=== PATIENT | male | born 1940 | race Caucasian/White ===

== ENCOUNTER 2019-04-24 10:19 | Outpatient (CLI) | payer MEDICARE, SELFPAY ==
--- NOTE | ~2019-04-24 | XR_ITS ---
EXAMINATION: XR knee LT 3V DATE: 04/24/2019 10:48 INDICATION: Primary osteoarthritis of left knee. TECHNIQUE: 3 views of left knee were obtained. COMPARISON: Left knee radiographs 07/04/2017 FINDINGS: There is varus angulation at the knee. No fracture. There is severe osteoarthritis of media l compartment and mild osteoarthritis of lateral and patellofemoral compartments. There is a small kn ee joint effusion. IMPRESSION: 1. Severe left knee osteoarthritis. 2. Small left knee joint effusion. Reviewed, dictated and finalized at location A. GE CLUB MANAGER
--- NOTE | ~2019-04-24 | XR_ITS ---
EXAMINATION: XR knee RT 3V DATE: 04/24/2019 10:48 INDICATION: Right knee primary osteoarthritis. TECHNIQUE: 3 views of right knee were obtained. COMPARISON: Right knee radiographs 07/04/2017 FINDINGS: There is varus angulation at the knee. No fracture. There is severe osteoarthritis of media l compartment and mild osteoarthritis of lateral and patellofemoral compartments. No knee joint effus ion. IMPRESSION: 1. Severe right knee osteoarthritis. Reviewed, dictated and finalized at location A. NG RUNNING MACHINE TENDER
--- NOTE | ~2019-04-24 | XR_ITS ---
EXAMINATION: XR shoulder RT min 2V DATE: 04/24/2019 10:47 INDICATION: Right shoulder primary osteoarthritis. TECHNIQUE: 4 views of right shoulder were obtained. COMPARISON: Right shoulder radiographs 07/04/2017 FINDINGS: Bone alignment is normal. No fracture. There is advanced osteoarthritis of glenohumeral rody nt and mild osteoarthritis of acromioclavicular joint. IMPRESSION: 1. Advanced osteoarthritis of glenohumeral joint. Reviewed, dictated and finalized at location A. T ENGINEER
[2019-04-24 12:07] LABS: Basophils Percent Auto 0.6 % (0.2-1.2); Eosinophils Absolute Auto 0.3 K/mm3 (0-0.3); Eosinophils Percent Auto 3.9 % (0-4.4); Hematocrit 46.6 % (42.0-52.0); Immature Granulocyte Absolute 0.02 K/mm3 (0.00-0.031); Immature Granulocyte Percent A 0.3 % (0-0.5); Lymphocytes Absolute Auto 1.33 K/mm3 (0.9-3.2); Lymphocytes Percent Auto 20.1 % (18.3-44.2); Mean Corpuscular HGB Conc 32.2 g/dl (32-36); Mean Corpuscular Hemoglobin 29.6 pg (26-34); Mean Corpuscular Volume 91.9 fl (80-100); Mean Platelet Volume 9.9 fl (7.4-10.4); Monocytes Absolute Auto 0.7 K/mm3 (0.1-0.6); Monocytes Percent Auto 10.1 % (2.6-8.5); Neutrophils Absolute Auto 4.3 K/mm3 (1.3-6.7); Platelet Count Result 214 k/mm3 (150-375); Red Blood Count 5.07 M/mm3 (4.6-6.20); Red Cell Distribution Width 13.8 % (11.5-14.5); White Blood Count 6.6 K/mm3 (4.5-10.0)
[2019-04-24 12:22] LABS: Blood Urea Nitrogen 21 mg/dL (9-20); Calcium 9.1 mg/dL (8.4-10.2); Carbon Dioxide 28 mmol/L (22-30); Chloride 101 mmol/L (98-107); Estimated Glomerular Filt Rate > 60; Glucose 104 mg/dL (75-110); Potassium 4.8 mmol/L (3.4-5.0); Sodium 138 mmol/L (137-145); Uric Acid 6.2 mg/dL (3.5-8.5)
== END 2019-04-24 10:20 | disposition home or self-care (01) ==
PROVIDERS: PCP Family Medicine; Visit Provider Family Medicine
DX: M19.011 Primary osteoarthritis, right shoulder (principal); M17.0 Bilateral primary osteoarthritis of knee; M25.462 Effusion, left knee; I10 Essential (primary) hypertension; M10.9 Gout, unspecified
CPT/HCPCS: 36415; 73030; 73562; 80048; 84550; 85025

== ENCOUNTER 2019-08-15 00:59 | Outpatient (CLI) | payer MEDICARE, SELFPAY ==
[2019-08-16 12:36] LABS: SARS-CoV-2 RNA PCR Negative
== END 2019-08-15 01:00 | disposition home or self-care (01) ==
LOC: ANHCOVIDDT 01:00
PROVIDERS: PCP Family Medicine; Visit Provider Internal Medicine Gastroenterology
DX: Z20.828 Contact with and (suspected) exposure to other viral communicable diseases (principal); Z01.812 Encounter for preprocedural laboratory examination
CPT/HCPCS: 87635; C9803; U0003

== ENCOUNTER 2019-08-17 00:24 | Day surgery (SDC) | payer MEDICARE, SELFPAY ==
[2019-08-09 15:13] VITALS: BMI 42.1
[2019-08-17 09:35] VITALS: BP 178/86; PULSE 68; RESP 22; TEMP 36.8; O2SAT 98
[2019-08-17] MEDS: LACTATED RINGERS 1,000 ML 150 ML IV CONT (09:45)
--- NOTE | 2019-08-17 09:56 | WPDANESEPPF ---
Anes - Initial Pre Proc Eval Procedure: Operation Date: 08/17/19 10:00 Proposed Procedures p Screening Colonoscopy - Corey Diego MD Date/Time: 08/17/19 09:56 Surgeon: Corey Diego MD Pre Op Diagnosis: hx colon polyps Patient Data Age: 79 Gender: M Height: 1.83 m Weight: 142.2 kg Last Vital Signs Temp 36.8 C 08/17/19 09:35 Pulse 68 08/17/19 09:35 Resp 22 H 08/17/19 09:35 BP 178/86 H 08/17/19 09:35 Pulse Ox 98 08/17/19 09:35 Allergies Allergy/AdvReac Type Severity Reaction Status Date / Time sulfanilamide Allergy Intermediate Rash Verified 08/17/19 09:34 Home Medications Medication Instructions Recorded Confirmed Type lisinopril 40 mg tablet 40 mg PO DAILY #90 tablet 02/13/19 08/09/19 Rx indomethacin 50 mg capsule 50 mg PO TID cap 03/11/19 08/09/19 History celecoxib 200 mg capsule 200 mg PO DAILY #90 cap 03/12/19 08/09/19 Rx aspirin 81 mg tablet,delayed 81 mg PO DAILY 04/24/19 08/09/19 History release metoprolol succinate 100 mg 100 mg PO BID #180 tablet 05/21/19 08/17/19 Rx tablet,extended release 24 hr allopurinol 100 mg tablet 100 mg PO DAILY #90 tablet 06/04/19 08/09/19 Rx vvfifrcl-rsa-MD-lycopen-lutein 1 tablet PO DAILY 08/09/19 08/09/19 History [Centrum Silver Men] Patient hx anesthesia problems: none Family hx anesthesia problems: none [facility] Past Medical History Medical History (Updated 08/16/19 @ 10:13 by Maurice Cha DO) Arthritis of right shoulder region Bilateral primary osteoarthritis of knee Colon polyp Essential (primary) hypertension Social History Social History Smoking status: Never smoker Second hand tobacco smoke exposure: No Alcohol intake: current Anes - Eval Final PreProcedure Day of Procedure 08/17/19 09:56 Patient weight: morbidly obese Heart: regular rate and rhythm Lungs: clear to auscultation and normal air movement Airway: Mallampati scale class II Neurological: alert and oriented Last oral intake: >/= 8 hours ASA classification: III Emergent: no Anesthetic plan: proceed Anesthesia type and monitoring: general GIVS and standard monitoring Informed Consent: The patient's anesthetic plan and its attendant risks and benefits were discussed with the patient/family/POA. Questions were solicited and answers provided to the satisfaction of the patient/family/POA.
--- NOTE | 2019-08-17 10:06 | WPDGICN ---
Assessment and Plan Assessment and plan (1) History of colon polyps: Code(s): Z86.010 - Personal history of colonic polyps Status: Acute Assessment and Plan: Patient gives a distant history of colon polyps. Plan is for high-fiber diet. Colonoscopy will be performed at this time. Further recommendations after follow-up colonoscopy. GI Consult Note Consult date/time: 08/17/19 10:06 HPI: Avinash Persaud is a 79 year old male seen in evaluation at the request of Dr Kuldip Joshua. Patient has history of colon polyps in the past. He presents for follow-up examination at this time. Most recent colonoscopy 5 years ago was performed in [place] by Dr. Cerda. Patient's current weight appetite bowel movements are normal. Denies any abdominal pain or bleeding. Family history noncontributory. There is no reported history of colon cancer or polyps. Past medical history is significant for hypertension, and gout. Review of Systems Review of Systems: All systems reviewed & are unremarkable except as noted in HPI and below PMFSH Past Medical History Medical History (Updated 08/17/19 @ 10:07 by Corey Diego MD) Arthritis of right shoulder region Bilateral primary osteoarthritis of knee Colon polyp Essential (primary) hypertension Family History Family History Father Cerebrovascular accident Family history of lung cancer Mother Family history of diabetes mellitus in first degree relative Social History Social History Smoking status: Never smoker Second hand tobacco smoke exposure: No Alcohol intake: current Meds Home Medications and Allergies Home Medications Medication Instructions Recorded Confirmed Type lisinopril 40 mg tablet 40 mg PO DAILY #90 tablet 02/13/19 08/09/19 Rx indomethacin 50 mg capsule 50 mg PO TID cap 03/11/19 08/09/19 History celecoxib 200 mg capsule 200 mg PO DAILY #90 cap 03/12/19 08/09/19 Rx aspirin 81 mg tablet,delayed 81 mg PO DAILY 04/24/19 08/09/19 History release metoprolol succinate 100 mg 100 mg PO BID #180 tablet 05/21/19 08/17/19 Rx tablet,extended release 24 hr allopurinol 100 mg tablet 100 mg PO DAILY #90 tablet 06/04/19 08/09/19 Rx axwmrcze-cbx-GB-lycopen-lutein 1 tablet PO DAILY 08/09/19 08/09/19 History [Centrum Silver Men] Allergies Allergy/AdvReac Type Severity Reaction Status Date / Time sulfanilamide Allergy Intermediate Rash Verified 08/17/19 09:34 Vital Signs Vital Signs - 24 hr 08/17/19 09:35 Temperature 36.8 C Pulse Rate 68 Respiratory Rate 22 H Blood Pressure 178/86 H Pulse Oximetry 98 Exam Narrative: Exam Narrative: Physical exam reveals patient to be alert. Vital signs stable. HEENT exam unremarkable. Lungs are clear to auscultation and percussion. Heart is without murmur or extra sounds. Abdominal exam bowel sounds are present soft nontender with no hepatosplenomegaly. Digital external rectal exam normal.
[2019-08-17 10:40] VITALS: BP 115/69; PULSE 61; RESP 19; O2SAT 99
[2019-08-17 10:50] VITALS: BP 132/73; PULSE 58; RESP 18; O2SAT 96
[2019-08-17 11:00] VITALS: BP 157/91; PULSE 58; RESP 22; O2SAT 98
== END 2019-08-17 11:12 | disposition home or self-care (01) ==
PROVIDERS: PCP Family Medicine; Visit Provider Internal Medicine Gastroenterology
PROC: 0DJD8ZZ Inspection of Lower Intestinal Tract, Via Natural or Artificial Opening Endoscopic (ICD-10-PCS; CPT 45378; principal; 2019-08-17 10:00)
DX: Z12.11 Encounter for screening for malignant neoplasm of colon (principal); D12.4 Benign neoplasm of descending colon; K63.5 Polyp of colon; I10 Essential (primary) hypertension; Z79.82 Long term (current) use of aspirin; E66.01 Morbid (severe) obesity due to excess calories; Z68.41 Body mass index [BMI] 40.0-44.9, adult
CPT/HCPCS: 45385; 88305; J2704; J7120

== ENCOUNTER 2020-03-23 18:40 | Emergency (ER) | payer MEDICARE, SELFPAY ==
[2020-03-23] VITALS (11 sets, daily range): BP systolic 142–233; BP diastolic 78–123; PULSE 65–78; RESP 16–28; TEMP 36.6–36.8; O2SAT 92–100
--- NOTE | ~2020-03-23 | XR_ITS ---
EXAMINATION: XR shoulder LT 1V EXAM DATE: 03/23/2020 19:04 INDICATION: Initial encounter following injury, with pain of the left shoulder. Fall. TECHNIQUE: Frontal projection left shoulder. Comparison is made to prior examination from 10/15/2019. FINDINGS: Complete anterior inferior dislocation of the left humerus with respect to the glenoid. No acute fracture line is identified. IMPRESSION: Left humerus complete anterior inferior dislocation. Reviewed, dictated and finalized at location A. ENT MANUFACTURER
--- NOTE | ~2020-03-23 | XR_ITS ---
EXAMINATION: XR shoulder LT min 2V EXAM DATE: 03/23/2020 20:28 INDICATION: Post reduction. TECHNIQUE: Left shoulder frontal and Y projections. There are no prior studies for comparison. FINDINGS: Previously seen humeral dislocation has been reduced. There is moderate acromioclavicular joint primary osteoarthritis. There are no acute fractures or dislocations identified. There is no s ubcutaneous gas. The soft tissue is unremarkable. There are no radiopaque foreign bodies. IMPRESSION: Status post left humeral reduction. Reviewed, dictated and finalized at location A. ER TIER
--- NOTE | 2020-03-23 18:47 | PC.NURSE ---
Verbal order received for morphine 4 mg IVP at this time per Levon GOMEZ.
[2020-03-23] MEDS: MORPHINE SULFATE (*CRX) 4 MG/ML INJ (18:48)
[2020-03-23] MEDS: ONDANSETRON INJ 4 MG/2 ML VIAL (18:48)
--- NOTE | 2020-03-23 18:48 | PC.NURSE ---
Verbal order received for zofran 4 mg IVP per Levon GOMEZ.
--- NOTE | 2020-03-23 19:13 | ED.GENADULT ---
HPI - General Adult General Chief complaint: Extremity Injury, Upper Stated complaint: shoulder deformity Source: patient and EMS Mode of arrival: EMS Limitations: no limitations History of Present Illness HPI narrative: Patient 79-year-old male who presents to emergency department for evaluation of left shoulder deformity pain after tripping over his 's oxygen tubing landing on the left shoulder patient notes aching pain was given morphine in route patient on arrival contained pain with any manipulation of the left shoulder with obvious deformity, patient denies head injury syncope or other complaints or recent illness Related Data Allergies Allergy/AdvReac Type Severity Reaction Status Date / Time sulfanilamide Allergy Intermediate Rash Verified 03/23/20 18:44 Review of Systems Review of Systems: All systems reviewed & are unremarkable except as noted in HPI and below PMFSH Past Medical History Medical History Arthritis of right shoulder region Bilateral primary osteoarthritis of knee Colon polyp Essential (primary) hypertension Hearing loss Left knee DJD Left shoulder pain Right knee DJD Right shoulder pain Skin cancer Vision abnormalities Family History Family History Father Cerebrovascular accident Family history of lung cancer Mother Family history of diabetes mellitus in first degree relative Other Diabetes mellitus Heart disease Hypertension Social History Social History Smoking status: Never smoker Second hand tobacco smoke exposure: No Alcohol intake: current Drinks per week: 3 Exam Narrative: Exam Narrative: GENERAL: Well-appearing, well-nourished, and in no acute distress. HEAD: Normocephalic, atraumatic. EYES: PERRLA and EOMI. ENT: Nares clear, no rhinorrhea or epistaxis. Mucous membranes moist. NECK: Supple. No adenopathy or masses. CHEST: Clear to auscultation. No respiratory distress. No wheezes rales or rhonchi HEART: Regular rate and rhythm. No murmur heard. Normal peripheral pulses. ABDOMEN: Soft, nontender, nondistended EXTREMITIES: Deformity of the left shoulder remainder of extremities nontender no cervical spine tenderness to palpation. SKIN: Warm, dry, no rash. NEURO: No focal deficits. Alert and oriented x3. Neurovascularly intact. Capillary refill less than 2 seconds PSYCH: Normal mood and affect. Course Course Emergency Course: Patient with shoulder dislocation was placed after moderate sedation no complications will be discharged home with orthopedic follow-up Vital Signs Vital signs: Vital Signs Temperature 98.2 F 03/23/20 18:36 Pulse Rate 77 03/23/20 18:36 Respiratory Rate 17 03/23/20 18:36 Blood Pressure 233/123 H 03/23/20 18:36 Pulse Oximetry 96 03/23/20 18:36 Temperature 98.2 F 03/23/20 18:36 Pulse Rate 78 03/23/20 18:48 Respiratory Rate 23 H 03/23/20 18:48 Blood Pressure 201/98 H 03/23/20 18:48 Pulse Oximetry 98 03/23/20 18:48 Procedures Orthopedic Joint Reduction Joint #1: Orthopedic Joint Reduction Date: 03/23/20 Orthopedic Joint Reduction Time: 20:36 Time Out Performed: Yes Side: left Joint Reduction Location: shoulder Analgesia: procedural sedation Pre-Procedure Neuro Vascular Exam: normal Shoulder Technique Used (if applicable): traction/counter-traction and external rotation Post-reduction neuro exam: intact Post-reduction vascular: intact Post Reduction X-Ray Obtained: Yes Post Reduction X-Ray Results: reduced Splint Applied: Yes Patient Tolerated Procedure: well Orthopedic Splinting/Casting Injury #1: Splinting/Casting Date: 03/23/20 Splinting/Casting Time: 20:37 Side: left Upper Extremity Injury Location: shoulder
[2020-03-23] MEDS: SODIUM CHLORIDE 0.9% IV 500 ML 999 ML IV CONT (20:00)
[2020-03-23] MEDS: PROPOFOL IV EMULSION 200 MG/20 ML VIAL 100 MG IV PUSH (20:02)
[2020-03-23] MEDS: HYDROcodone/acetaminophen (*CRX) 5-325 MG TABLET 1 TAB PO (21:00)
--- NOTE | 2020-03-23 21:16 | PC.NURSE ---
2019---left shoulder immobilizer applied by tech-had to use two in able to have a large enough band to go around patient.
== END 2020-03-23 21:05 | disposition home or self-care (01) ==
PROVIDERS: Emergency Provider Emergency Medicine; Family Provider Family Medicine; PCP Family Medicine
DX: S43.015A Anterior dislocation of left humerus, initial encounter (principal); S43.035A Inferior dislocation of left humerus, initial encounter; I10 Essential (primary) hypertension; M17.11 Unilateral primary osteoarthritis, right knee; M19.011 Primary osteoarthritis, right shoulder; Z86.010 Personal history of colon polyps; Z85.828 Personal history of other malignant neoplasm of skin; W18.09XA Striking against other object with subsequent fall, initial encounter
CPT/HCPCS: 23650; 73020; 73030; 96374; 96375; 99285; A9270; J2270; J2405; J2704; J7040

== ENCOUNTER 2020-04-30 07:14 | Outpatient (CLI) | payer MEDICARE, SELFPAY ==
[2020-04-30 07:42] LABS: Hematocrit 46.5 % (42.0-52.0); Hemoglobin 15.2 g/dL (14.0-18.0); Mean Corpuscular HGB Conc 32.7 g/dl (32-36); Mean Corpuscular Hemoglobin 30.8 pg (26-34); Mean Corpuscular Volume 94.1 fl (80-100); Mean Platelet Volume 9.6 fl (7.4-10.4); Platelet Count Result 193 k/mm3 (150-375); Red Blood Count 4.94 M/mm3 (4.6-6.20); Red Cell Distribution Width 15.4 % (11.5-14.5); White Blood Count 6.5 K/mm3 (4.5-10.0)
[2020-04-30 07:58] LABS: Potassium 4.3 mmol/L (3.4-5.0)
[2020-04-30 08:10] LABS: LDL Cholesterol Direct 101 mg/dL
[2020-04-30 08:27] LABS: Anion Gap 5 mmol/L (8-16); Blood Urea Nitrogen 25 mg/dL (9-20); Calcium 9.3 mg/dL (8.4-10.2); Carbon Dioxide 29 mmol/L (22-30); Chloride 106 mmol/L (98-107); Cholesterol 159 mg/dL (0-200); Estimated Glomerular Filt Rate > 60; Glucose 103 mg/dL (75-110); HDL Direct 39 mg/dL; Sodium 140 mmol/L (137-145); Triglycerides 108 mg/dL (<150); Uric Acid 5.5 mg/dL (3.5-8.5)
[2020-04-30 08:30] LABS: Prostate Specific Antigen 0.4 ng/mL (< OR = 4.0)
== END 2020-04-30 07:15 | disposition home or self-care (01) ==
PROVIDERS: PCP Family Medicine; Visit Provider Family Medicine
DX: Z12.5 Encounter for screening for malignant neoplasm of prostate (principal); I10 Essential (primary) hypertension; Z13.220 Encounter for screening for lipoid disorders; M1A.0790 Idiopathic chronic gout, unspecified ankle and foot, without tophus (tophi)
CPT/HCPCS: 36415; 80048; 80061; 84153; 84443; 84550; 85027; G0103

== ENCOUNTER 2020-05-01 10:18 | Outpatient (CLI) | payer MEDICARE, SELFPAY | END 2020-05-01 10:19 | disposition home or self-care (01) | LOC: ANHCOVIDVC 10:18 | PROVIDERS: PCP Family Medicine | DX: Z23 Encounter for immunization (principal) | CPT/HCPCS: 0001A; 91300 ==

== ENCOUNTER 2020-05-22 10:14 | Outpatient (CLI) | payer MEDICARE, SELFPAY | END 2020-05-22 10:15 | disposition home or self-care (01) | LOC: ANHCOVIDVC 10:14 | PROVIDERS: PCP Family Medicine | DX: Z23 Encounter for immunization (principal) | CPT/HCPCS: 0002A; 91300 ==

== ENCOUNTER 2020-05-28 08:00 | Outpatient (RCR) | payer MEDICARE, SELFPAY ==
--- NOTE | 2020-05-07 09:34 | PTOPEVAL ---
PHYSICAL THERAPY EVALUATION AND PLAN OF CARE 05-07-20 Thank you for referring Avinash Persaud to [facility].? He has 2 orders for PT, diagnosis of R shoulder pain and gait imbalance. He wants to start with the gait imbalance diagnosis. Edilson is scheduled to be seen for therapy? 2 x/week for 3 weeks. Please review, sign, date and return this plan of care LILIAN. I agree with and certify that the following plan of care is medically necessary. Referring Physician Date Attending Provider: Maykel Patterson MD- order for R shoulder pain Dr. Malissa MD-- order for gait imbalance *PT Outpatient Evaluation Document 05/07/20 08:30 BEBA (Rec: 05/07/20 09:34 BEBA [id number]) Outpatient Past Medical History Past Medical History Source of Past Medical History Recalled from Previous Visit, Confirmed with Patient/Family Neurological History Hx Neurological Disorders No Significant History Cardiovascular History Hx Hypertension Yes: meds Respiratory History Hx Respiratory Disorders No Significant History Gastrointestinal History Hx Polyps Yes Genitourinary History Hx Genitourinary Disorders No Significant History Musculoskeletal History Hx Arthritis Yes: B KNEE AND SHOULDER Hx Fractures Yes: as child arm and R leg fractures Hx Gout Yes: meds Hx Other Musculoskeletal Disorders Yes: fall Feb- dislocated L shoulder Hematological History Hx Hematological Disorders No Significant History Endocrine History Hx Endocrine Disorders No Significant History HEENT History Hx Dental Problems Yes: NO TEETH Integumentary History Hx Other Skin Disorders Yes: RT LEG SKIN CANCER REMOVED, SMALL SPOT REMOVED ON FACE Reproductive History Hx Reproductive Disorders No Significant History Psychosocial History Hx Anxiety Yes: started new med- crowds bother him Pain History History of Any Previous or Ongoing No Significant History Instance of Pain Anesthesia History Hx Anesthesia Reactions No Significant History Other History Hx Cancer Yes: RT LEG Hx Other Medical Conditions Yes: obesity Evaluation Information Problem Diagnosis R shoulder pain- Dr. Patterson & gait imbalance- Dr. Leonardo Onset Dec 2019 Subjective Information gradual increase in balance Query Text:As Reported By Patient/ problems, more pain in knees; Family had 3 falls in past few months : tripped over 's oxygen tubing- fall and dislocation
--- NOTE | 2020-05-28 08:30 | PTOPEVAL ---
PHYSICAL THERAPY DISCHARGE 05-28-20 Refer to the clinical summary below for his status at discharge, compared to the initial evaluation. Treatment has been completed for gait imbalance. Edilson reports his R shoulder is better and he does not want any therapy on his shoulder, is doing exercises and it is moving better. Thank you for referring Avinash Persaud to [facility] Please review, sign, date and return this discharge LILIAN. I agree with and certify that the following plan of care is medically necessary. Referring Physician Date Attending Provider: Dr. Patterson--order for R shoulder pain Dr. Leonardo--order for gait imbalance *PT Outpatient Discharge Document 05/28/20 07:59 BEBA (Rec: 05/28/20 08:30 BEBA [id number]) Subjective Information Edilson reports: feel like his Query Text:As Reported By Patient/ legs are stronger, able to do Family more walking; no falls; has been doing his leg exercises; and is doing R arm exercises- raising arm up and stretching it; shoulder is better and do not want therapy for his shoulder, it is doing OK; He agrees to discharge from PT at this time. Pain Assessment Timing of Pain Assessment Timing of Pain Assessment Assessment Pain Scale Pain Scale Used Numeric (1 - 10) Self Report Pain Assessment Bilateral Knee(s) Reported Pain Level 5 Pain Frequency Chronic Pain Score Pain Score 5: Self Report Interventions Used Interventions Used By Clinicians Exercise Upper Extremity Range of Motion General Upper Extremity Range of Motion Gross Upper Extremity Range of Motion active R shoulder ROM: flexion Comments 120' and abduction 120'; Lower Extremity Muscle Strength Testing General Lower Extremity Strength Gross Lower Extremity Strength supine: SLR R and L x 20 reps; standing B PF with 1 UE hold x 20 reps with heels ~ 2 off ground- is not able to perform without UE hold; single leg standing: R and L- can lift foot but not hold; Transfer Assessment Floor Transfer Assessment Floor Transfer Comments did not perform, but pt reports able to perform at home without any problems, as long as he has couch to pull up with arms; Balance Assessment Tinetti Balance Assessment Sitting Balance Steady, safe Ability to Arise Able, w/o using arms Attempts to Arise Arises on
== END 2020-05-28 12:51 | disposition home or self-care (01) ==
LOC: ANHPT 08:00
PROVIDERS: PCP Family Medicine; Visit Provider Orthopaedic Surgery
DX: M25.511 Pain in right shoulder (principal); M25.611 Stiffness of right shoulder, not elsewhere classified; Z74.09 Other reduced mobility
CPT/HCPCS: 97110; 97161

== ENCOUNTER 2021-08-18 06:37 | Outpatient (CLI) | payer MEDICARE, SELFPAY ==
[2021-08-18 07:20] LABS: Hematocrit 45.5 % (42.0-52.0); Hemoglobin 14.7 g/dL (14.0-18.0); Mean Corpuscular HGB Conc 32.3 g/dl (32-36); Mean Corpuscular Hemoglobin 31.1 pg (26-34); Mean Corpuscular Volume 96.4 fl (80-100); Mean Platelet Volume 9.6 fl (7.4-10.4); Platelet Count Result 180 k/mm3 (150-375); Red Blood Count 4.72 M/mm3 (4.6-6.20); Red Cell Distribution Width 13.7 % (11.5-14.5); White Blood Count 6.9 K/mm3 (4.5-10.0)
[2021-08-18 07:34] LABS: Alanine Aminotransferase 19 U/L (6-50); Albumin Level 3.7 g/dL (3.5-5.1); Alkaline Phosphatase 133 U/L (38-126); Anion Gap 2 mmol/L (8-16); Aspartate Amino Transferase 21 U/L (17-59); Bilirubin,Total 0.2 mg/dL (0.2-1.3); Blood Urea Nitrogen 26 mg/dL (9-20); Calcium 8.5 mg/dL (8.4-10.2); Carbon Dioxide 32 mmol/L (22-30); Chloride 104 mmol/L (98-107); Cholesterol 181 mg/dL (0-200); Estimated Glomerular Filt Rate > 60; Glucose 103 mg/dL (65-110); HDL Direct 39 mg/dL; Potassium 4.3 mmol/L (3.4-5.0); Sodium 138 mmol/L (137-145); Triglycerides 108 mg/dL (<150)
[2021-08-18 07:45] LABS: LDL Cholesterol Direct 107 mg/dL
[2021-08-18 08:43] LABS: Prostate Specific Antigen 0.6 ng/mL (< OR = 4.0)
== END 2021-08-18 06:38 | disposition home or self-care (01) ==
LOC: ANHLAB 06:39
PROVIDERS: PCP Family Medicine; Visit Provider Nurse Practitioner Family
DX: Z12.5 Encounter for screening for malignant neoplasm of prostate (principal); I10 Essential (primary) hypertension; N28.9 Disorder of kidney and ureter, unspecified
CPT/HCPCS: 36415; 80053; 80061; 84153; 84443; 85027; G0103

== ENCOUNTER 2021-09-10 09:43 | Outpatient (CLI) | payer MEDICARE, SELFPAY ==
--- NOTE | ~2021-09-10 | US_ITS ---
EXAMINATION: US carotid duplex BI DATE: 09/10/2021 10:35 INDICATION: Encounter for general adult medical examination. TECHNIQUE: Grayscale, color Doppler, and pulsed Doppler images of the cervical carotid arteries were obtained. The degree of vessel stenosis is placed in one of the following categories: normal, <50%, 5 0-69%, >=70% but less than near-occlusion, near-occlusion, or total occlusion. Note that percent sten osis relative to normal distal artery lumen diameter is indirectly measured from velocity measurement s as described by Killian, et al. Radiology 2003; 229:340-346. COMPARISON: None. FINDINGS: RIGHT: The right common carotid artery (CCA) peak systolic velocity (PSV) is 94 cm/s. The right internal car otid artery (ICA) PSV is 83 cm/s. The right ICA end-diastolic velocity (EDV) is 21 cm/s. The right IC A/CCA PSV ratio is 0.9. Grayscale and color Doppler images yield an estimate of <50% diameter reducti on from plaque in the ICA. The external carotid artery (ECA) PSV is 108 cm/s. There is antegrade flow in the right vertebral artery. LEFT: The left CCA PSV is 96 cm/s. The left ICA PSV is 82 cm/s. The left ICA EDV is 21 cm/s. The left ICA/C CA PSV ratio is 0.8. Grayscale and color Doppler images yield an estimate of <50% diameter reduction from plaque in the ICA. The ECA PSV is 88 cm/s. There is antegrade flow in the left vertebral artery. IMPRESSION: 1. <50% stenosis in the right internal carotid artery. 2. <50% stenosis in the left internal carotid artery. Reviewed, dictated and finalized at location B.
== END 2021-09-10 09:44 | disposition home or self-care (01) ==
LOC: ANHIMG 09:47
PROVIDERS: PCP Family Medicine; Visit Provider Nurse Practitioner Family
DX: I65.23 Occlusion and stenosis of bilateral carotid arteries (principal)
CPT/HCPCS: 93880

== ENCOUNTER 2021-09-15 08:26 | Outpatient (CLI) | payer MEDICARE, SELFPAY ==
--- NOTE | 2021-09-15 08:40 | ECHO_ITS ---
Patient Info Name: Avinash Persaud Age: 81 years : 1940 Gender: Male Ht: 71 in Wt: 300 lbs BSA: 2.67 m2 BP: 189 / 89 mmHg Technical Quality: Good Exam Date: 09/15/2021 9:07 AM Exam Location: [facility] Patient Status: Outpatient Admit Date: 09/15/2021 Staff Ordering Physician: Ynes Payne Rand Sewer: Marlon Neff RDCS, RT Attending Provider: Ynes Payne Referring Physician: Kerry BAE; Exam Type: CA echo doppler color flow Study Info Indications I10 - Essential (primary) hypertension Summary 1. Left ventricular chamber dimension is normal. 2. Left ventricular systolic function is normal, estimated at 55-60%. 3. There is mildly increased left ventricular wall thickness. 4. The left ventricular diastolic function is grade III diastolic dysfunction. 5. E/e' 15 is elevated. 6. Global longitudinal strain is abnormal at -8.4%. 7. Left atrial chamber dimension is mildly enlarged. 8. There is moderate aortic valve sclerosis. 9. There is mild aortic valve stenosis with a peak velocity of 145 cm/s, mean gradient of 5 mmHg, and aortic valve area of 1.8 cm2. 10. There is mild to moderate mitral valve regurgitation. 11. There is mild tricuspid valve regurgitation. 12. Mild pulmonary hypertension, estimated pulmonary arterial systolic pressure is 48 mmHg. 13. Dilated inferior vena cava with >50% collapse upon inspiration consistent with elevated right atrial pressure, 10 mmHg. Left Ventricle E/e' 15 is elevated. Global longitudinal strain is abnormal at -8.4%. Left ventricular chamber dimension is normal. Left ventricular systolic function is normal, estimated at 55-60%. There is mildly increased left ventricular wall thickness. The left ventricular diastolic function is grade III diastolic dysfunction. Right Ventricle Right ventricular chamber dimension is normal. Right ventricular systolic function is normal. Left Atria Left atrial chamber dimension is mildly enlarged. Right Atria Right atrial chamber dimension is normal. Aortic Valve The aortic valve is trileaflet. There is moderate aortic valve sclerosis. There is mild aortic valve stenosis with a peak velocity of 145 cm/s, mean gradient of 5 mmHg, and aortic valve area of 1.8 cm2. There is no aortic valve regurgitation. Pulmonic Valve There is no pulmonic regurgitation. Mitral Valve There is no mitral valve stenosis. There is mild to moderate mitral valve regurgitation. Tricuspid Valve There is mild tricuspid valve regurgitation. Mild pulmonary hypertension, estimated pulmonary arterial systolic pressure is 48 mmHg. Pericardium/Pleural There is no pericardial effusion. Inferior Vena Cava Dilated inferior vena cava with >50% collapse upon inspiration consistent with elevated right atrial pressure, 10 mmHg. Aorta The aortic root size at the sinus of Valsalva is normal. Left Ventricular Outflow Tract Name Value Normal LVOT 2D LVOT Diameter 2.0 cm LVOT Doppler LVOT Peak Gradient 3 mmHg LVOT Mean Gradient 1 mmHg LVOT VTI
== END 2021-09-15 08:27 | disposition home or self-care (01) ==
LOC: ANHCARD 08:28
PROVIDERS: PCP Family Medicine; Visit Provider Nurse Practitioner Family
DX: I10 Essential (primary) hypertension (principal); I08.3 Combined rheumatic disorders of mitral, aortic and tricuspid valves
CPT/HCPCS: 93306

== ENCOUNTER 2022-08-04 15:37 | Outpatient (CLI) | payer MEDICARE, SELFPAY ==
[2022-08-04 13:59] LABS: Uric Acid 4.4 mg/dL (3.5-8.5)
[2022-08-04 16:29] LABS: Basophils Absolute Auto 0.1 K/mm3 (0.0-0.1); Basophils Percent Auto 0.5 % (0.2-1.2); Eosinophils Absolute Auto 0.3 K/mm3 (0-0.3); Hematocrit 44.2 % (42.0-52.0); Hemoglobin 14.4 g/dL (14.0-18.0); Immature Granulocyte Absolute 0.03 K/mm3 (0.00-0.031); Immature Granulocyte Percent A 0.3 % (0-0.5); Lymphocytes Absolute Auto 1.13 K/mm3 (0.9-3.2); Lymphocytes Percent Auto 12.4 % (18.3-44.2); Mean Corpuscular HGB Conc 32.6 g/dl (32-36); Mean Corpuscular Hemoglobin 30.1 pg (26-34); Mean Corpuscular Volume 92.3 fl (80-100); Mean Platelet Volume 10.1 fl (7.4-10.4); Monocytes Absolute Auto 0.8 K/mm3 (0.1-0.6); Monocytes Percent Auto 8.2 % (2.6-8.5); Neutrophils Absolute Auto 6.9 K/mm3 (1.3-6.7); Neutrophils Percent Auto 75.6 % (45.5-73.1); Platelet Count Result 277 k/mm3 (150-375); Red Blood Count 4.79 M/mm3 (4.6-6.20); Red Cell Distribution Width 14.2 % (11.5-14.5); White Blood Count 9.1 K/mm3 (4.5-10.0)
[2022-08-04 16:38] LABS: Rheumatoid Factor < 12.0 IU/ML (<12)
[2022-08-09 11:18] LABS: ANA Cascade Screen Negative (Negative)
== END 2022-08-04 15:38 | disposition home or self-care (01) ==
PROVIDERS: Physician Assistant Medical; PCP Family Medicine; Visit Provider Nurse Practitioner Family
DX: M25.50 Pain in unspecified joint (principal); L03.119 Cellulitis of unspecified part of limb
CPT/HCPCS: 36415; 84550; 85025; 86038; 86430

== ENCOUNTER 2023-03-08 12:06 | Outpatient (CLI) | payer MEDICARE, OTHER, SELFPAY ==
[2023-03-08 12:35] LABS: Basophils Percent Auto 0.5 % (0.2-1.2); Eosinophils Absolute Auto 0.2 K/mm3 (0-0.3); Eosinophils Percent Auto 2.5 % (0-4.4); Hematocrit 43.2 % (42.0-52.0); Hemoglobin 13.9 g/dL (14.0-18.0); Immature Granulocyte Absolute 0.02 K/mm3 (0.00-0.031); Immature Granulocyte Percent A 0.3 % (0-0.5); Lymphocytes Absolute Auto 1.32 K/mm3 (0.9-3.2); Lymphocytes Percent Auto 17.6 % (18.3-44.2); Mean Corpuscular HGB Conc 32.2 g/dl (32-36); Mean Corpuscular Hemoglobin 30.8 pg (26-34); Mean Corpuscular Volume 95.6 fl (80-100); Mean Platelet Volume 9.5 fl (7.4-10.4); Monocytes Absolute Auto 0.7 K/mm3 (0.1-0.6); Monocytes Percent Auto 9.4 % (2.6-8.5); Neutrophils Absolute Auto 5.2 K/mm3 (1.3-6.7); Neutrophils Percent Auto 69.7 % (45.5-73.1); Platelet Count Result 277 k/mm3 (150-375); Red Blood Count 4.52 M/mm3 (4.6-6.20); Red Cell Distribution Width 14.6 % (11.5-14.5); White Blood Count 7.5 K/mm3 (4.5-10.0)
[2023-03-08 12:47] LABS: Alanine Aminotransferase 36 U/L (6-50); Albumin Level 3.4 g/dL (3.5-5.1); Alkaline Phosphatase 344 U/L (38-126); Anion Gap 5 mmol/L (8-16); Aspartate Amino Transferase 35 U/L (17-59); Bilirubin,Total 0.7 mg/dL (0.2-1.3); Blood Urea Nitrogen 11 mg/dL (9-20); Calcium 8.9 mg/dL (8.4-10.2); Carbon Dioxide 29 mmol/L (22-30); Chloride 105 mmol/L (98-107); Estimated Glomerular Filt Rate > 60; Glucose 99 mg/dL (65-110); Potassium 4.4 mmol/L (3.4-5.0); Sodium 139 mmol/L (137-145); Uric Acid 5.2 mg/dL (3.5-8.5)
[2023-03-08 13:17] LABS: Prostate Specific Antigen 0.6 ng/mL (< OR = 4.0)
== END 2023-03-08 12:07 | disposition home or self-care (01) ==
PROVIDERS: PCP Family Medicine; Visit Provider Family Medicine
DX: R20.0 Anesthesia of skin (principal); R20.2 Paresthesia of skin; I51.89 Other ill-defined heart diseases; Z12.5 Encounter for screening for malignant neoplasm of prostate; M1A.0790 Idiopathic chronic gout, unspecified ankle and foot, without tophus (tophi)
CPT/HCPCS: 36415; 80053; 82607; 84153; 84443; 84550; 85025; G0103

== ENCOUNTER 2023-03-14 12:11 | Inpatient (IN) | payer MEDICARE, OTHER, SELFPAY ==
[2023-03-14] VITALS (31 sets, daily range): BP systolic 129–208; BP diastolic 61–96; PULSE 72–102; RESP 14–36; TEMP 36.6–37.4; O2SAT 93–100; BMI 34.0; BMI 34.4
--- NOTE | ~2023-03-14 | US_ITS ---
EXAMINATION: US abdomen limited DATE: 03/14/2023 18:16 INDICATION: Right upper quadrant pain TECHNIQUE: Multiple grayscale and Doppler ultrasound images of the abdomen were obtained. COMPARISON: CT from today FINDINGS: Bowel gas obscures visualization of the pancreas. The visualized portions of the pancreas a re unremarkable. The liver is normal with normal echogenicity and echotexture. No surface nodularity. Normal hepatopetal flow in the main portal vein. There are multiple stones in the gallbladder which is mildly dilated. No gallbladder wall thickening is identified. The dilated common bile duct measure s 8 mm. There was no sonographic Neff sign. IMPRESSION: 1. Dilated common bile duct, consistent with choledocholithiasis seen on the comparison CT. 2. Cholelithiasis and gallbladder distention, likely related to choledocholithiasis. Reviewed, dictated and finalized at location F. [employer] IMPRESSION: 1. Dilated common bile duct, consistent with choledocholithiasis seen on the co mparison CT. 2. Cholelithiasis and gallbladder distention, likely related to choledocholithi asis.
--- NOTE | ~2023-03-14 | XR_ITS ---
XR chest 1V portable DATE: 03/14/2023 12:59 INDICATION: Chest pain TECHNIQUE: Portable AP chest on 03/14/2023 at 1247 hours COMPARISON: 04/28/2012 two-view chest FINDINGS: This is a limited rotated single AP view of the chest. No pulmonary infiltrate or consolidation, pleural effusion or pulmonary vascular congestion or pneumo thorax is evident. There is aortic arch calcification. Heart size is likely within normal range but n ot optimally evaluated because of the rotation and magnification associated with AP projection. Severe right glenohumeral osteoarthritis. Degenerative spurring of the thoracic spine. IMPRESSION: No active cardiopulmonary disease Reviewed, dictated and finalized at location [facility]. [facility]
--- NOTE | ~2023-03-14 | CT_ITS ---
EXAMINATION: CT abdomen pelvis w con INDICATION: Epigastric pain TECHNIQUE: Computed tomographic images of the abdomen and pelvis were obtained after the administrati on of 100 cc of Omnipaque 350 intravenous contrast. The dose-length product (DLP) was 1432.80 mGy-cm. Automated exposure control and iterative reconstruction technique were employed. COMPARISON: None available FINDINGS: Minimal dependent atelectasis is present in the lung bases. The heart size is normal. There are multiple stones in the common bile duct resulting in intrahepatic and extrahepatic biliary dilat ation as well as gallbladder distention. There are multiple stones in the gallbladder. The appendix i s normal. The liver, pancreas, and adrenal glands are normal. Punctate calcifications in an otherwise normal spleen likely represent healed granulomatous disease. Nonobstructing stones of the left kidne y measure up to 3 mm. No pathologically enlarged abdominal or pelvic lymph nodes are identified. No f ree intraperitoneal gas or evidence of bowel obstruction. There is moderate lumbar spondylosis. There is a small umbilical hernia containing fat. IMPRESSION: 1. Choledocholithiasis with intrahepatic and extrahepatic biliary dilatation as well as gallbladder d istention. GI evaluation is recommended. 2. Cholelithiasis without definite findings of cholecystitis. Reviewed, dictated and finalized at location F. RAL SURVEYOR IMPRESSION: 1. Choledocholithiasis with intrahepatic and extrahepatic biliary dilatation as well as gallbladder distention. GI evaluation is recommended. 2. Cholelithiasis without definite findings of cholecystitis.
--- NOTE | ~2023-03-14 | XR_ITS ---
EXAMINATION: XR ERCP DATE: 03/16/2023 10:26 INDICATION: Choledocholithiasis. TECHNIQUE: 2 spot fluoroscopic images of the right upper quadrant were obtained during endoscopic ret rograde cholangiopancreatography (ERCP). Fluoroscopy exposure time was 190 seconds. COMPARISON: CT abdomen and pelvis 03/14/2023 FINDINGS: The endoscope is in the second portion of the duodenum. There are stones in the common duct . IMPRESSION: 1. Choledocholithiasis. Please refer to the ERCP procedure note for additional details. Reviewed, dictated and finalized at location E. [employer] UN[employer]
--- NOTE | 2023-03-14 12:15 | ECG_ITS ---
Measurements Intervals [place] Rate: 79 P: -35 MI: 148 QRS: -57 QRSD: 104 T: -3 QT: 357 QTc: 411 Interpretive Statements SINUS RHYTHM LEFT AXIS DEVIATION VOLTAGE CRITERIA FOR LVH BORDERLINE T WAVE ABNORMALITY- INFERIOR LEADS BASELINE ARTIFACT- I, II, III, AVR, AVL, AVF, V1 BORDERLINE ECG NO PREVIOUS ECG AVAILABLE FOR COMPARISON Electronically Signed On 03-14-2023 12:59:33 INTERNATIONAL PROJECT ENGINEER by Antonio Wynn D.O.
--- NOTE | 2023-03-14 12:17 | ED.GENADULT ---
HPI - General Adult General Chief complaint: Chest Pain Stated complaint: STEMI Source: patient Related Data Home Medications Medication Instructions Recorded Confirmed aspirin 81 mg tablet,delayed 81 mg PO DAILY 03/08/23 03/14/23 release (Adult Aspirin Regimen) allopurinol 100 mg tablet 100 mg PO DAILY 03/14/23 03/14/23 metoprolol succinate 100 mg 100 mg PO BID 03/14/23 03/14/23 tablet,extended release 24 hr [id number]-[id number] 300 mcg-K 60 1 tablet PO DAILY 03/14/23 03/14/23 mcg-lycop 600 mcg-lutein 300 mcg tablet (Centrum Silver Men) Allergies Allergy/AdvReac Type Severity Reaction Status Date / Time sulfanilamide Allergy Intermediate Rash Verified 03/08/23 08:17 [facility] Past Medical History Medical History (Updated 03/14/23 @ 17:19 by Raman Cortez MD) Arthritis of right shoulder region Bilateral primary osteoarthritis of knee BMI 33.0-33.9,adult BMI greater than 40 BMI over 35 Colon polyp DJD of both shoulders Essential (primary) hypertension Hearing loss Impaired functional mobility, balance, gait, and endurance Impingement syndrome of right shoulder Left knee DJD Left shoulder pain Numbness and tingling of both feet Right knee DJD Right shoulder pain Screening for lipid disorders Screening for prostate cancer Skin cancer Social anxiety disorder Vision abnormalities Surgical History Surgical History H/O knee surgery Family History Family History Father Cerebrovascular accident Family history of lung cancer Tobacco abuse Mother Family history of diabetes mellitus in first degree relative , Onset Age: 64 succumbed to injuries from MVC. Sibling Heart disease Diabetes mellitus Other Hypertension Social History Social History Smoking status: Never smoker Second hand tobacco smoke exposure: Yes Alcohol intake: current Drinks per week: 3 Substance use: never Substance use type: does not use Do You Feel Safe in your Home?: Yes Lack of Transportation: No Lack of Food: Never True Current Housing: I Have Housing Concerned About Future Housing: No Difficulty Paying Gas/Electric Bills: No Difficulty Paying for Meds: No Currently Unemployed: No Education: Trade/Vocational Certificate Difficulty w/ Childcare or Family Care: No Living arrangements: with family Occupation/Education: retired 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 PENA Date: 03/14/23 Time: 17:20 Consultation #2: DR. CHARLES Date: 03/14/23 Time: 17:23 Vital Signs Vital signs: Vital Signs Temperature 36.6 C 03/14/23 12:08 Pulse Rate 79 03/14/23 12:08 Respiratory Rate 21 H 03/14/23 12:08 Blood Pressure 208/96 H 03/14/23 12:08 Pulse Oximetry 98 03/14/23 12:08 Oxygen Delivery Room Air 03/14/23 12:08 Temperature 37.4 C 03/14/23 20:00 Pulse Rate 77 03/14/23 20:00 Respiratory Rate 18 03/14/23 20:00 Blood Pressure 163/72 H 03/14/23 20:00 Pulse Oximetry 97 03/14/23 20:00 Oxygen Delivery Room Air 03/14/23 12:08 Medical Decision Making Medical Records Medical records reviewed: Yes I reviewed the external patient's medical records. Vital Signs Vital Signs: Vital Signs Temperature 36.6 C 03/14/23 12:08 Pulse Rate 79 03/14/23 12:08 Respiratory Rate 21 H 03/14/23 12:08 Blood Pressure 208/96 H 03/14/23 12:08 Pulse Oximetry 98 03/14/23 12:08 Oxygen Delivery Room Air 03/14/23 12:08 Temperature 37.4 C 03/14/23 20:00 Pulse Rate 77 03/14/23 20:00 Respiratory Rate 18 03/14/23 20:00 Blood Pressure 163/72 H 03/14/23 20:00 Pulse Oximetry 97 03/14/23 20:00 Oxygen D
[2023-03-14 12:31] LABS: Basophils Percent Auto 0.3 % (0.2-1.2); Eosinophils Percent Auto 0.3 % (0-4.4); Hematocrit 45.6 % (42.0-52.0); Hemoglobin 14.3 g/dL (14.0-18.0); Immature Granulocyte Absolute 0.06 K/mm3 (0.00-0.031); Immature Granulocyte Percent A 0.4 % (0-0.5); Lymphocytes Absolute Auto 0.64 K/mm3 (0.9-3.2); Lymphocytes Percent Auto 4.5 % (18.3-44.2); Mean Corpuscular HGB Conc 31.4 g/dl (32-36); Mean Corpuscular Volume 95.8 fl (80-100); Mean Platelet Volume 10.2 fl (7.4-10.4); Monocytes Absolute Auto 0.9 K/mm3 (0.1-0.6); Monocytes Percent Auto 6.5 % (2.6-8.5); Neutrophils Absolute Auto 12.7 K/mm3 (1.3-6.7); Platelet Count Result 260 k/mm3 (150-375); Red Blood Count 4.76 M/mm3 (4.6-6.20); Red Cell Distribution Width 14.1 % (11.5-14.5); White Blood Count 14.4 K/mm3 (4.5-10.0)
[2023-03-14 12:41] LABS: Alanine Aminotransferase 26 U/L (6-50); Albumin Level 3.7 g/dL (3.5-5.1); Alkaline Phosphatase 239 U/L (38-126); Anion Gap 5 mmol/L (8-16); Aspartate Amino Transferase 30 U/L (17-59); Blood Urea Nitrogen 13 mg/dL (9-20); Calcium 9.3 mg/dL (8.4-10.2); Carbon Dioxide 31 mmol/L (22-30); Chloride 97 mmol/L (98-107); Cholesterol 144 mg/dL (0-200); Estimated CRCL calculation 91 ml/min; Estimated Glomerular Filt Rate > 60; Glucose 133 mg/dL (65-110); HDL Direct 44 mg/dL; INR 1.1; Potassium 4.1 mmol/L (3.4-5.0); Prothrombin Time 14.4 Seconds (11.1-14.7); Sodium 133 mmol/L (137-145); Triglycerides 72 mg/dL (<150)
[2023-03-14 12:42] LABS: Partial Thromboplastin Time 30.5 SECONDS (22.3-36.8)
[2023-03-14 12:45] LABS: Lipase 79 U/L (23-300)
[2023-03-14 12:51] LABS: LDL Cholesterol Direct 78 mg/dL
[2023-03-14 12:55] LABS: Troponin I < 0.012 ng/mL (0.000-0.034)
[2023-03-14 14:18] LABS: Appearance Urine Clear (Clear); Bacteria Urine 2+ /hpf; Bilirubin Urine Negative (Negative); Blood Urine Negative (Negative); Color Urine Yellow (Yellow); Glucose Urine UA Negative (Negative); Ketones Urine Trace mg/dL (Negative); Leukocyte Esterase Ur Trace LEU/UL (Negative); Nitrate Urine Negative (Negative); Non Pathogenic Casts 0-2; Protein Urine Trace mg/dL (Negative); RBC Urine 0-2 /hpf (0-2); Specific Grav Ur 1.019 (1.001-1.035); Squamous Epithelial Cell Urine None seen /hpf (Few); pH Urine 6.5 (5.0-9.0)
[2023-03-14 14:24] LABS: Add Urine Microscopic? YES
[2023-03-14] MEDS: BELLADONNA ALK/PHENOB ELIX 10 ML, MAG HYDROX/ALUMINUM HYD/SIMETH 30 ML, LIDOCAINE HCL 2... PO (14:47)
[2023-03-14] MEDS: NITROGLYCERIN OINTMENT 1 INCH DOSE TRANSDERM (14:49)
[2023-03-14] MEDS: ASPIRIN 81 MG CHEWABLE TABLET 324 MG PO (14:52)
--- NOTE | 2023-03-14 15:07 | ECG_ITS ---
Measurements Intervals [place] Rate: 76 P: 3 FL: 157 QRS: 0 QRSD: 98 T: -1 QT: 367 QTc: 413 Interpretive Statements SINUS RHYTHM VOLTAGE CRITERIA FOR LVH BORDERLINE T WAVE ABNORMALITY- INFERIOR LEADS BASELINE ARTIFACT- I, III, AVR, AVL, AVF BORDERLINE ECG COMPARED TO ECG 03/14/2023 12:15:21 NO SIGNIFICANT CHANGES Electronically Signed On 03-14-2023 15:15:58 [employer]CAFFOLDING HELPER by Antonio Wynn D.O.
[2023-03-14 15:36] LABS: Troponin I < 0.012 ng/mL (0.000-0.034)
[2023-03-14] MEDS: ONDANSETRON INJ 4 MG/2 ML VIAL IV PUSH (16:46)
[2023-03-14] MEDS: MORPHINE SULFATE (*CRX) 4 MG/ML INJ IV PUSH (16:47)
--- NOTE | 2023-03-14 18:10 | ECG_ITS ---
Measurements Intervals [place] Rate: 78 P: 12 NV: 158 QRS: 0 QRSD: 102 T: 6 QT: 365 QTc: 416 Interpretive Statements SINUS RHYTHM LEFT VENTRICULAR HYPERTROPHY BORDERLINE T WAVE ABNORMALITY- INFERIOR LEADS BASELINE ARTIFACT- I, III, AVL, V5 BORDERLINE ECG COMPARED TO ECG 03/14/2023 15:11:53 NO SIGNIFICANT CHANGES Electronically Signed On 03-15-2023 9:48:11 BULB TESTER by Antonio Wynn D.O.
[2023-03-14 18:36] LABS: Troponin I 0.019 ng/mL (0.000-0.034)
--- NOTE | 2023-03-14 19:10 | PM.IMHP ---
H&P: HPI History of Present Illness Date/Time: 03/14/23 18:30 Chief Complaint: Chest/epigastric pain. Narrative: This is a very pleasant 82-year-old male with hypertension, gout, and history of colon polyps who presented to the emergency department via EMS from home for evaluation of chest/epigastric pain. The patient provides the following history. He had pork chops and mashed potatoes for dinner last night. About an hour thereafter he developed sudden onset of low chest/epigastric pain which he describes as a cramping or aching pain. It seemed to wrap around the upper abdomen and around the ribcage. He initially attributed his symptoms to indigestion. The pain continued throughout the night and he was not really able to sleep due to ongoing discomfort. He had quite a bit of nausea and tried to induce emesis but failed. This morning he called his granddaughter who is a nurse and she encouraged him to come in for evaluation. He denies syncope, near syncope, fever, chills, sweats, exertional chest pain, pleuritic pain, shortness a breath, bloating, belching, hematemesis, melena, and hematochezia. EMS called a STEMI in the field though EKG on arrival was not consistent with that. His troponins have been negative thus far. The remainder of his labs were significant for WBC count of 14.4, sodium 133, chloride 97,, total bili I 0.0, AST 30, ALT 26, alkaline phosphatase 239, lipase 79. CT of the abdomen and pelvis showed choledocholithiasis with intrahepatic and extrahepatic biliary dilatation as well as gallbladder distension and cholelithiasis without definite findings of cholecystitis. He is being admitted in this setting for pain control and GI consultation. At the time my evaluation he is feeling a bit better after receiving pain medication in the ER. Review of Systems Review of Systems: Twelve systems were reviewed and are negative except for as per HPI. [facility] Past Medical History Medical History (Updated 03/14/23 @ 22:46 by Elisabeth Watts PA-C) Arthritis BMI 33.0-33.9,adult Colon polyp Essential (primary) hypertension Gout Hearing loss Skin cancer Social anxiety disorder Surgical History Surgical History (Updated 03/14/23 @ 22:44 by Elisabeth Watts PA-C) History of bilateral knee replacement History of colonoscopy with polypectomy History of squamous cell carcinoma excision Right leg. Family History Family History Father Cerebrovascular accident Family history of lung cancer Tobacco abuse Mother Family history of diabetes mellitus in first degree relative , Onset Age: 64 succumbed to injuries from MVC. Sibling Heart disease Diabetes mellitus Other Hypertension Social History Social History (Updated 03/14/23 @ 22:43 by Elisabeth Watts PA-C) Social History: Surrogate medical decision maker: Disha Persaud, spouse. Code status: Full code. Smoking status: Never smoker Second hand tobacco smoke exposure: Yes Alcohol intake: current Drinks per week: 3 Substance use: never Substance use type: does not use Do You Feel Safe in your Home?: Yes Lack of Transportation: No Lack of Food: Never True Current Housing: I Have Housing Concerned About Future Housing: No Difficulty Paying Gas/Electric Bills: No Difficulty Paying for Meds: No Currently Unemployed: No Education: Trade/Vocational Certificate Difficulty w/ Childcare or Family Care: No Living arrangements: with family Additional living arrangements comments: Lives with spouse in [place]. 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
--- NOTE | 2023-03-14 20:08 | ADMGEN ---
This patient, Avinash Persaud, was admitted to IMU Room 205-01 Patient/family oriented to hospital policies and general routines including ID bracelet, bed and alarms, visiting hours, pain management, procedures, bathroom and other care routines, personal items, smoking policy, room service/diet, and visiting hours. Information on how to activate the Rapid Response Team has been discussed. Patient/Family are encouraged to report perceived risks to care and to ask questions if they do not understand what they are told or what they should do.
[2023-03-14] MEDS: HYDROmorphone HCL INJ (*CRX) 1 MG/ML SYR 0.5 MG IV PUSH (20:40)
[2023-03-14] MEDS: SODIUM CHLORIDE 0.9% IV 1,000 ML 125 ML IV CONT (20:43)
[2023-03-14] MEDS: PIPERACILLN/TAZ 3.375GM/NS50ML 3.375 GM/50 ML BAG IVPB (23:58)
[2023-03-15] VITALS (18 sets, daily range): BP systolic 139–156; BP diastolic 61–74; PULSE 73–105; RESP 18–24; TEMP 36.6–37.3; O2SAT 93–99
[2023-03-15] MEDS: PIPERACILLN/TAZ 3.375GM/NS50ML 3.375 GM/50 ML BAG IVPB ×4 (05:11→23:16)
[2023-03-15] MEDS: SODIUM CHLORIDE 0.9% IV 1,000 ML 125 ML IV CONT (05:11)
[2023-03-15 05:22] LABS: Hematocrit 42.9 % (42.0-52.0); Hemoglobin 13.8 g/dL (14.0-18.0); Mean Corpuscular HGB Conc 32.2 g/dl (32-36); Mean Corpuscular Hemoglobin 30.5 pg (26-34); Mean Corpuscular Volume 94.9 fl (80-100); Mean Platelet Volume 10.3 fl (7.4-10.4); Platelet Count Result 261 k/mm3 (150-375); Red Blood Count 4.52 M/mm3 (4.6-6.20); Red Cell Distribution Width 14.2 % (11.5-14.5); White Blood Count 24.9 K/mm3 (4.5-10.0)
[2023-03-15 05:34] LABS: Alanine Aminotransferase 21 U/L (6-50); Albumin Level 3.4 g/dL (3.5-5.1); Alkaline Phosphatase 185 U/L (38-126); Anion Gap 6 mmol/L (8-16); Aspartate Amino Transferase 25 U/L (17-59); Bilirubin,Total 1.2 mg/dL (0.2-1.3); Blood Urea Nitrogen 15 mg/dL (9-20); Calcium 9.2 mg/dL (8.4-10.2); Carbon Dioxide 30 mmol/L (22-30); Chloride 96 mmol/L (98-107); Estimated CRCL calculation 71 ml/min; Estimated Glomerular Filt Rate > 60; Glucose 97 mg/dL (65-110); Magnesium 1.7 mg/dL (1.6-2.3); Potassium 5.4 mmol/L (3.4-5.0); Sodium 132 mmol/L (137-145)
[2023-03-15 05:46] LABS: Anisocytosis 1+ (NORMAL); Band Neutrophils Percent 6 % (0-6); Lymphocytes Absolute Manual 0.49 K/mm3 (1.1-4.5); Metamyelocytes Percent 1 %; Monocytes Absolute Manual 1.24 K/mm3 (0.1-0.90); Monocytes Percent Manual 5 % (3-9); Neutrophils Percent Manual 86 % (46-73); Platelet Estimate Adequate (Adequate); Schistocytes None Seen (NORMAL); Total Cells Counted 100
[2023-03-15] MEDS: PANTOPRAZOLE SODIUM IV 40 MG VIAL IV PUSH (08:33)
[2023-03-15] MEDS: allopurinoL 100 MG TABLET PO (08:33)
[2023-03-15] MEDS: OPTI-GEN TAB 1 TABLET PO (08:33)
[2023-03-15] MEDS: ASPIRIN 81 MG CHEWABLE TABLET PO (08:33)
[2023-03-15] MEDS: METOPROLOL SUCCINATE EXT REL 100 MG TABCR PO ×2 (08:34→20:33)
[2023-03-15] MEDS: lisinopriL 20 MG TABLET 40 MG PO (08:34)
--- NOTE | 2023-03-15 09:42 | PM.IMPN ---
Progress Note: A&P Assessment and Plan (1) Choledocholithiasis: Code(s): K80.50 - Calculus of bile duct without cholangitis or cholecystitis without obstruction Status: Acute Assessment and Plan: Appreciate GI consultation Plan for ERCP 03/16 Started on prophylactic antibiotics with Zosyn 03/14, no signs of infection at this time (2) Cholelithiasis: Code(s): K80.20 - Calculus of gallbladder without cholecystitis without obstruction Status: Acute Assessment and Plan: Appreciate general surgery consultation to discuss cholecystectomy (3) Leukocytosis: Code(s): D72.829 - Elevated white blood cell count, unspecified Status: Acute Assessment and Plan: See above (4) Essential (primary) hypertension: Code(s): I10 - Essential (primary) hypertension Status: Acute Assessment and Plan: Blood pressures reviewed 03/15 Plan DVT prophylaxis with SCDs GI prophylaxis not indicated Code status full code Subjective Date/time seen: 03/15/23 09:42 Interval history: 82-year-old male with history of hypertension, gout is presenting with epigastric pain and currently being treated for choledocholithiasis. No overnight events noted. No chest pain or shortness of breath. No nausea, vomiting or diarrhea. No fevers or chills. Abdominal pain still present, improving. Review of Systems Review of Systems: 12 point review of systems was assessed and was negative except as noted in the HPI Exam Narrative: General: No acute distress, alert and oriented per baseline HEENT: Atraumatic, normocephalic, mucous membranes moist CV: Regular rate and rhythm, S1, S2 Lungs: Clear to auscultation bilaterally, no rales or crackles noted, no wheezes, good air entry Abdomen: TTP, non distended Extremities: Normal to inspection Skin: No rashes noted, no lesions or wounds seen Psych: Euthymic, normal affect Objective Data Vital Signs Vital Signs: Vital Signs - 24 hr 03/14/23 12:08 03/14/23 12:08 03/14/23 13:56 Temperature 97.8 F Pulse Rate 79 75 Respiratory Rate 21 H 14 Blood Pressure 208/96 H Pulse Oximetry 98 98 Oxygen Delivery Room Air Room Air 03/14/23 13:58 03/14/23 13:59 03/14/23 14:00 Temperature Pulse Rate 72 90 77 Respiratory Rate 24 H 18 19 Blood Pressure 174/82 H Pulse Oximetry 99 99 96 Oxygen Delivery 03/14/23 14:01 03/14/23 14:15 03/14/23 14:16 Temperature Pulse Rate 76 75 76 Respiratory Rate 19 21 H 24 H Blood Pressure 156/80 H 156/81 H Pulse Oximetry 98 98 98 Oxygen Delivery 03/14/23 14:17 03/14/23 14:47 03/14/23 14:48 Temperature Pulse Rate 77 80 87 Respiratory Rate 23 H 36 H 21 H Blood Pressure 184/84 H Pulse Oximetry 99 100 99 Oxygen Delivery 03/14/23 15:00 03/14/23 15:01 03/14/23 15:15 Temperature Pulse Rate 76 77 77 Respiratory Rate 22 H 20 21 H Blood Pressure 170/82 H Pulse Oximetry 100 97 Oxygen Delivery 03/14/23 15:16 03/14/23 15:30 03/14/23 15:45 Temperature Pulse Rate 77 77 79 Respiratory Rate 25 H 22 H 22 H Blood Pressure 171/83 H Pulse Oximetry 97 98 98 Oxygen Delivery 03/14/23 16:00 03/14/23 16:01 03/14/23 16:02 Temperature Pulse Rate 79 80 79 Respiratory Rate 23 H 22 H 23 H Blood Pressure 156/80 H Pulse Oximetry 97 98 96 Oxygen Delivery 03/14/23 16:15 03/14/23 16:16 03/14/23 16:30 Temperature Pulse Rate 78 78 102 H Respiratory Rate 23 H 19 27 H Blood Pressure 157/83 H Pulse Oximetry 97 99 Oxygen Delivery 03/14/23 16:32 03/14/23 17:08 03/14/23 17:15 Temperature Pulse Rate 80 97 77 Respiratory Rate 25 H 22 H Blood Pressure Pulse Oximetry 96 97 99 Oxygen Delivery 03/14/23 17:38 03/14/23 19:18 03/14/23 20:00 Temperature 98.2 F 99.4 F Pulse Rate 95 80 77 Respiratory Rate 19 16 18 Blood Pressure 160/84 H 163/72 H Pulse Oximetry 98 99 97 Oxygen Delivery
[2023-03-15] MEDS: PERFLUTREN LIPID MICROSPHERES 1.5 ML VIAL DILUTED TO 10 ML TOTAL VOLUME IV PUSH (10:36)
--- NOTE | 2023-03-15 10:52 | PM.CNGS ---
Assessment and Plan Assessment and plan (1) Cholelithiasis with choledocholithiasis: Code(s): K80.70 - Calculus of gallbladder and bile duct without cholecystitis without obstruction Status: Acute Assessment and Plan: CT showed innumerable gallstones in the gallbladder and multiple in the common bile duct with intra and extrahepatic biliary dilatation. LFTs are surprisingly normal other than an elevated alk phos. His WBC count has gone up to 24 today from 14 on admission. The patient has already clinically improved and is much more comfortable this morning. We would recommend to continue the IV Zosyn and await GI consultation for possible ERCP. Discussed with the patient that he will eventually need a laparoscopic cholecystectomy to prevent future complications of his gallstones. If he is able to be added on for an ERCP, then we will could plan for a laparoscopic cholecystectomy later this week if he is doing well. Since he is feeling better, we will start him on a low fat diet. Will make him NPO after midnight in case GI plans to add him on for an ERCP tomorrow. Thank you for allowing us to see the patient in consultation and we will continue to follow along with you. (2) Leukocytosis: Code(s): D72.829 - Elevated white blood cell count, unspecified Status: Acute Assessment and Plan: White blood cell count up to 24k today. Clinically, the patient has improved with his abdominal pain much better today and more in the RUQ. Continue IV Zosyn. Trend labs. (3) Essential (primary) hypertension: Code(s): I10 - Essential (primary) hypertension Status: Acute Assessment and Plan: Blood pressure was elevated initially when he presented to the ER. His blood pressure has improved and his home medications were resumed. Continue to monitor. 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 He saw his PCP about a week ago for this issue and had outpatient labs. Plan I have discussed the patient's case and plan of care with Dr. Stinson. History of Present Illness Consult details Consult date: 03/15/23 Reason for consult: other (Choledocholithiasis) Requesting physician: Raman Cortez MD Narrative: This is an 82-year-old man with a history of gout and hypertension, who we have been asked to see in surgical consultation for choledocholithiasis. He presented to the ER with complaints of epigastric pain. He reports eating pork chops and mashed potatoes for dinner two nights ago and about an hour after eating developed epigastric pain. His pain radiated to his low mid chest. This wrapped across his upper abdomen around his ribs. His pain persisted throughout the night and affected his sleep. He reports associated nausea, but no vomiting. His family then encouraged him to come into the ER for evaluation. Labs in the ER were significant for a WBC count of 14.4, sodium 133, chloride 97, total bilirubin 1.0, AST 30, ALT 26, alkaline phosphatase 239, lipase 79. In review of his chart, he had labs from his PCP about a week ago when he was seen for gout that showed an alk phos of 344 and otherwise normal LFTs. CT of the abdomen and pelvis showed choledocholithiasis with intrahepatic and extrahepatic biliary dilatation as well as gallbladder distension and cholelithiasis without other definite findings to suggest cholecystitis. He was admitted and GI was also consulted. He was started on IV Zosyn last night around 2300. Labs this morning showed his WBC count went up to 24.9. Alk phos was down to 185 with his other LFTs normal. He also had an abdominal ultrasound that sh
--- NOTE | 2023-03-15 14:56 | WPDGICN ---
Assessment and Plan Assessment and plan (1) Cholelithiasis with choledocholithiasis: Code(s): K80.70 - Calculus of gallbladder and bile duct without cholecystitis without obstruction Status: Acute Assessment and Plan: will proceed with ercp tomorrow, patient is agreeable noted stone in bile duct on abx and surgery on board, plan for cholecystectomy after ercp (2) Leukocytosis: Code(s): D72.829 - Elevated white blood cell count, unspecified Status: Acute Assessment and Plan: on abx (3) RUQ pain: Code(s): R10.11 - Right upper quadrant pain Status: Acute Assessment and Plan: improved with treatment (4) Essential (primary) hypertension: Code(s): I10 - Essential (primary) hypertension Status: Acute GI Consult Note Consult date/time: 03/15/23 14:56 Reason for consult: choledocholithiasis, RUQ pain HPI: Avinash Persaud is a 82 year old male with history of gout and hypertension. He came to the ER with new onset of pain in epigastric and RUQ after eating pork chops and mashed potatoes for dinner two nights ago. Pain did not go away and worsened, also had nausea, but no vomiting. Blood work showed WBC count of 14.4, sodium 133, chloride 97, total bilirubin 1.0, AST 30, ALT 26, alkaline phosphatase 239, lipase 79. CT of the abdomen and pelvis reviewed and showed choledocholithiasis with intrahepatic and extrahepatic biliary dilatation as well as gallbladder distension and cholelithiasis without other definite findings to suggest cholecystitis. He was admitted and GI was also consulted. He was started on IV Zosyn last night around 2300. Labs this morning showed his WBC count went up to 24.9. Alk phos was down to 185 with his other LFTs normal. Pain is better after medical therapy, denies previous similar episode. Review of Systems Review of Systems: All systems reviewed & are unremarkable except as noted in HPI and below Constitutional: Constitutional: Reports no additional constitutional complaints, Denies chills, Denies fatigue and Denies fever(s) Eyes: Eyes: Reports no additional eye complaints ENT: Reports system reviewed and no additional complaints, except as documented and Denies dizziness Cardiovascular: Cardiovascular: Reports no additional cardiovascular complaints, Denies chest pain and Denies leg edema Respiratory: Respiratory: Reports no additional respiratory complaints, Denies cough and Denies dyspnea Gastrointestinal: Gastrointestinal: Reports as per HPI, Reports no additional gastrointestinal complaints, Reports abdominal pain (epigastric), Denies melena, Denies diarrhea, Reports nausea and Denies vomiting Genitourinary: Genitourinary: Reports no additional male genitourinary complaints Musculoskeletal: Musculoskeletal: Reports no additional musculoskeletal complaints, Denies numbness and Denies tingling Integumentary/Breasts: Skin/Breast: Reports system reviewed and no additional complaints, except as docu Neurologic: Reports system reviewed and no additional complaints, except as documented, Denies dizziness, Denies headache(s) and Denies tingling Psychiatric: Psychiatric: Denies anxiety PMFSH Past Medical History Medical History (Updated 03/15/23 @ 14:59 by Francisco Javier Ross MD) Arthritis Colon polyp Essential (primary) hypertension Gout Hearing loss RUQ pain Skin cancer Social anxiety disorder Surgical History Surgical History History of bilateral knee replacement History of colonoscopy with polypectomy History of squamous cell carcinoma excision Right leg. Family History Family History Father Cerebrovascular accident Family history of lung cancer Tobacco abuse Mother Family history of diabetes mellitus in first degree relative , Onset Age: 64 succumbed to injuries from MVC.
--- NOTE | 2023-03-15 22:48 | ECHO_ITS ---
Patient Info Name: Avinash Persaud Age: 82 years : 1940 Gender: Male Ht: 70 in Wt: 239 lbs BSA: 2.35 m2 HR: 78 bpm BP: 139 / 61 mmHg Technical Quality: Good Exam Date: 03/15/2023 9:54 AM Exam Location: Echo Lab Patient Status: Inpatient Admit Date: 03/14/2023 Staff Ordering Physician: Elisabeth Watts PA-C Attending Provider: Bethanie Lynn DO Referring Physician: Mac OLIVEIRA; Exam Type: CA echo dop color flow w con Study Info Indications R07.9 - Chest pain, unspecified Complete two-dimensional, color flow and Doppler transthoracic echocardiogram is performed with contrast to opacify the left ventricle and to improve the deliniation of the left ventricle endocardial borders. Contrast/Agitated Saline Contrast/Ag. Saline: Definity Amount: 1.00 ml Existing IV Access: Yes IV Access Condition: patent with no signs of infiltration Summary 1. Definity contrast administered improved wall motion interpretation. 2. Left ventricular chamber dimension is normal. 3. Left ventricular systolic function is normal, estimated at 65-70%. 4. The left ventricular diastolic function is grade I diastolic dysfunction. 5. E/e' 7 is not elevated. 6. Left atrial chamber dimension is moderately enlarged. 7. Right atrial chamber dimension is moderately enlarged. 8. There is moderate aortic valve sclerosis. 9. There is trace mitral valve regurgitation. Left Ventricle Definity contrast administered improved wall motion interpretation. E/e' 7 is not elevated. Left ventricular chamber dimension is normal. Left ventricular systolic function is normal, estimated at 65-70%. The left ventricular diastolic function is grade I diastolic dysfunction. Right Ventricle Right ventricular systolic function is normal and with normal TAPSE 2.1 cm. Right ventricular chamber dimension is normal. Left Atria Left atrial chamber dimension is moderately enlarged. Right Atria Right atrial chamber dimension is moderately enlarged. Aortic Valve The aortic valve is trileaflet. There is moderate aortic valve sclerosis. There is no aortic valve stenosis. There is no aortic valve regurgitation. Pulmonic Valve There is no pulmonic regurgitation. Mitral Valve There is no mitral valve stenosis. There is trace mitral valve regurgitation. Tricuspid Valve There is no tricuspid valve regurgitation. Pericardium/Pleural There is no pericardial effusion. Inferior Vena Cava Normal inferior vena cava with >50% collapse upon inspiration consistent with normal right atrial pressure, 5 mmHg. Aorta The aortic root size at the sinus of Valsalva is normal. Left Ventricular Outflow Tract Name Value Normal LVOT 2D LVOT Diameter 2.16 cm LVOT Doppler LVOT Peak Gradient 5 mmHg LVOT Mean Gradient 2 mmHg LVOT VTI 24.36 cm LVOT VTI/AV VTI Ratio 0.62 LVOT Stroke Volume 89.31 ml LVOT CO 6.24 l/min LVOT CI 2.65 L/min/m2 Pulmonic Valve
[2023-03-16] VITALS (21 sets, daily range): BP systolic 101–147; BP diastolic 58–74; PULSE 66–104; RESP 16–25; TEMP 36.2–37.2; O2SAT 95–98
[2023-03-16 04:49] LABS: Hemoglobin 12.9 g/dL (14.0-18.0); Mean Corpuscular HGB Conc 31.5 g/dl (32-36); Mean Corpuscular Hemoglobin 30.2 pg (26-34); Mean Platelet Volume 10.6 fl (7.4-10.4); Platelet Count Result 238 k/mm3 (150-375); Red Blood Count 4.27 M/mm3 (4.6-6.20); Red Cell Distribution Width 14.6 % (11.5-14.5); White Blood Count 24.4 K/mm3 (4.5-10.0)
[2023-03-16 04:58] LABS: Alanine Aminotransferase 18 U/L (6-50); Albumin Level 3.2 g/dL (3.5-5.1); Alkaline Phosphatase 173 U/L (38-126); Anion Gap 6 mmol/L (8-16); Aspartate Amino Transferase 29 U/L (17-59); Blood Urea Nitrogen 17 mg/dL (9-20); Calcium 8.7 mg/dL (8.4-10.2); Carbon Dioxide 27 mmol/L (22-30); Chloride 97 mmol/L (98-107); Estimated CRCL calculation 71 ml/min; Estimated Glomerular Filt Rate > 60; Glucose 89 mg/dL (65-110); Lipase 45 U/L (23-300); Potassium 4.3 mmol/L (3.4-5.0); Sodium 130 mmol/L (137-145)
[2023-03-16] MEDS: PIPERACILLN/TAZ 3.375GM/NS50ML 3.375 GM/50 ML BAG IVPB ×2 (05:11→12:41)
[2023-03-16 05:17] LABS: Band Neutrophils Percent 5 % (0-6); Lymphocytes Absolute Manual 0.73 K/mm3 (1.1-4.5); Lymphocytes Percent Manual 3 % (18-44); Neutrophils Absolute Manual 21.22 K/mm3 (1.3-6.7); Neutrophils Percent Manual 82 % (46-73); Total Cells Counted 100
[2023-03-16 05:18] LABS: Anisocytosis 1+ (NORMAL); Metamyelocytes Percent 1 %; Monocytes Absolute Manual 2.19 K/mm3 (0.1-0.90); Monocytes Percent Manual 9 % (3-9); Platelet Estimate Adequate (Adequate); Schistocytes None Seen (NORMAL)
[2023-03-16] MEDS: METOPROLOL SUCCINATE EXT REL 100 MG TABCR PO ×2 (08:30→20:12)
[2023-03-16] MEDS: LACTATED RINGERS 1,000 ML 150 ML IV CONT (08:47)
--- NOTE | 2023-03-16 09:16 | WPDANESEPPF ---
Anes - Initial Pre Proc Eval Procedure: Operation Date: 03/16/23 10:00 Proposed Procedures p Endoscopic Retro Cholangiopancreatogram - Francisco Javier Ross MD Operation Date: 03/18/23 09:30 Proposed Procedures p Laparoscopic Cholecystectomy with Intra Operative Cholangiogram - Wesley Stinson MD Date/Time: 03/16/23 09:16 Surgeon: Bethanie Lynn DO Pre Op Diagnosis: Chest Pain,Choledocholithiasis Patient Data Age: 82 Gender: M Height: 1.78 m Weight: 107.8 kg Last Vital Signs Temp 97.2 F L 03/16/23 08:45 Pulse 88 03/16/23 08:45 Resp 18 03/16/23 08:45 BP 139/62 03/16/23 08:45 Pulse Ox 96 03/16/23 08:45 O2 Del Method Room Air 03/16/23 08:45 Allergies Allergy/AdvReac Type Severity Reaction Status Date / Time sulfanilamide Allergy Intermediate Rash Verified 03/16/23 08:43 Home Medications Medication Instructions Recorded Confirmed Type acetaminophen 650 mg 650 mg PO Q8H PRN pain #7 tabs 03/23/20 03/14/23 Rx tablet,extended release (Tylenol Arthritis Pain) aspirin 81 mg tablet,delayed 81 mg PO DAILY 03/08/23 03/14/23 History release (Adult Aspirin Regimen) lisinopril 40 mg tablet 40 mg PO DAILY #90 tabs 03/08/23 03/14/23 Rx allopurinol 100 mg tablet 100 mg PO DAILY 03/14/23 03/14/23 History metoprolol succinate 100 mg 100 mg PO BID 03/14/23 03/14/23 History tablet,extended release 24 hr [id number] 300 mcg-K 60 1 tablet PO DAILY 03/14/23 03/14/23 History mcg-lycop 600 mcg-lutein 300 mcg tablet (Centrum Silver Men) Laboratory Tests 03/16/23 04:12 WBC 24.4 H K/mm3 (4.5-10.0) RBC 4.27 L M/mm3 (4.6-6.20) Hgb 12.9 L g/dL (14.0-18.0) Hct 41.0 L % (42.0-52.0) MCV 96.0 fl (80-100) MCH 30.2 pg (26-34) MCHC 31.5 L g/dl (32-36) RDW 14.6 H % (11.5-14.5) Plt Count 238 k/mm3 (150-375) MPV 10.6 H fl (7.4-10.4) Immature Gran % (Auto) Not Reportable Neut % (Auto) Not Reportable Lymph % (Auto) Not Reportable [place] % (Auto) Not Reportable Eos % (Auto) Not Reportable Baso % (Auto) Not Reportable Lymph # (Auto) Not Reportable [place] # (Auto) Not Reportable Eos # (Auto) Not Reportable Baso # (Auto) Not Reportable Abs Immat Gran (auto) Not Reportable Absolute Neuts (auto) Not Reportable Absolute Nucleated RBC Not Reportable Total Counted 100 Neutrophils % (Manual) 82 H % (46-73) Band Neutrophils % 5 % (0-6) Lymphocytes % (Manual) 3 L % (18-44) Monocytes % (Manual) 9 % (3-9) Metamyelocytes % 1 % Nucleated RBC % Not Reportable Abs Neuts (Manual) 21.22 H K/mm3 (1.3-6.7) Abs Lymphs (Manual) 0.73 L K/mm3 (1.1-4.5) Abs Monocytes (Manual) 2.19 H K/mm3 (0.1-0.90) Platelet Estimate Adequate (Adequate) Anisocytosis 1+ (NORMAL) Schistocytes None seen (NORMAL) Sodium 130 L mmol/L (137-145) Potassium 4.3 mmol/L (3.4-5.0) Chloride 97 L mmol/L (98-107) Carbon Dioxide 27 mmol/L (22-30) Anion Gap 6 L mmol/L (8-16) BUN 17 mg/dL (9-20) Creatinine 0.90 mg/dL (0.7-1.3) Estim Creat Clear Calc 71 ml/min Estimated GFR > 60 (59 - ) Glucose 89 mg/dL (65-110) Calcium 8.7 mg/dL (8.4-10.2) Total Bilirubin 1.0 mg/dL (0.2-1.3) AST 29 U/L (17-59) ALT 18 U/L (6-50) Alkaline Phosphatase 173 H U/L (38-126) Total Protein 6.0 L g/dL (6.3-8.2) Albumin 3.2 L g/dL (3.5-5.1) Lipase 45 U/L (23-300) Patient hx anesthesia problems: none Family hx anesthesia problems: none Results Review: All pre-operative results and documents have been reviewed as part of the pre-operative evaluation. [facility] Past Medical History Medical History (Updated 03/15/23 @ 14:59 by Francisco Javier Ross MD) Arthritis Colon polyp Essential (primary) hypertension Gout Hearing loss
[2023-03-16] MEDS: INDOMETHACIN 50 MG SUPP.RECT RECTAL (09:43)
--- NOTE | 2023-03-16 09:52 | SUR.OPER ---
3222 scrotum checked for position prior to procedure, shins elevated on pillow placed horizontally
[2023-03-16] MEDS: lisinopriL 20 MG TABLET 40 MG PO (11:42)
[2023-03-16] MEDS: ASPIRIN 81 MG CHEWABLE TABLET PO (11:43)
[2023-03-16] MEDS: PANTOPRAZOLE SODIUM IV 40 MG VIAL IV PUSH (11:43)
[2023-03-16] MEDS: allopurinoL 100 MG TABLET PO (11:43)
--- NOTE | 2023-03-16 13:51 | PM.IMPN ---
Progress Note: A&P Assessment and Plan (1) Choledocholithiasis: Code(s): K80.50 - Calculus of bile duct without cholangitis or cholecystitis without obstruction Status: Acute Assessment and Plan: Patient presents with abdominal pain and found to have choledocholithiasis. GI consulted and appreciate their input. ERCP today with multiple stones removed after sphincterotomy and balloon sweep. Plan for cholecystectomy on 03/18/2023 (2) Cholelithiasis: Code(s): K80.20 - Calculus of gallbladder without cholecystitis without obstruction Status: Acute Assessment and Plan: As above. Plan for cholecystectomy in 2 days. (3) Leukocytosis: Code(s): D72.829 - Elevated white blood cell count, unspecified Status: Acute Assessment and Plan: White count climbed to 25K probably related to above. Urine culture growing Enterococcus species that is pansensitive Currently on Zosyn. Will change to Unasyn. Monitor white count. (4) Essential (primary) hypertension: Code(s): I10 - Essential (primary) hypertension Status: Acute Assessment and Plan: Patient's blood pressure was reviewed on 03/16 Blood pressure remains well controlled. Will continue to monitor Plan DVT prophylaxis with SCDs Code status full code Subjective Date/time seen: 03/16/23 13:51 Interval history: 82-year-old male with history of hypertension, gout is presenting with epigastric pain and currently being treated for choledocholithiasis. Assuming care. Chart reviewed. Had ERCP earlier today. Abdominal pain much better. Cough that is nonproductive. No CP. Exam Narrative: AF 97.7 128/62 77 16 96% ra Gen - NARD Chest - left base crackles o/w clear. nml RR CV - RRR with extra beats. Tele showing no alarms Abd - Soft, NT/ND, Positive BS Ext - No pedal edema Psych - Nml mood and affect Skin - Warm and dry Objective Data Vital Signs Vital Signs: Vital Signs - 24 hr 03/15/23 15:16 03/15/23 14:00 03/15/23 16:00 Temperature 99.1 F Pulse Rate 85 81 87 Respiratory Rate 20 Blood Pressure 148/68 H Pulse Oximetry 97 Oxygen Delivery Oxygen Flow Rate 03/15/23 16:00 03/15/23 17:56 03/15/23 20:00 Temperature 98.4 F Pulse Rate 85 105 H 91 Respiratory Rate 20 20 Blood Pressure 156/74 H Pulse Oximetry 97 99 Oxygen Delivery Room Air Oxygen Flow Rate 03/15/23 20:33 03/15/23 20:00 03/15/23 20:00 Temperature Pulse Rate 73 94 94 Respiratory Rate 20 Blood Pressure Pulse Oximetry 99 Oxygen Delivery Room Air Oxygen Flow Rate 03/15/23 21:17 03/15/23 23:42 03/15/23 23:42 Temperature Pulse Rate 82 86 86 Respiratory Rate 20 Blood Pressure Pulse Oximetry 99 Oxygen Delivery Room Air Oxygen Flow Rate 03/15/23 23:54 03/16/23 01:22 03/16/23 03:52 Temperature 98.1 F Pulse Rate 86 74 88 Respiratory Rate 20 Blood Pressure 149/70 H Pulse Oximetry 96 Oxygen Delivery Oxygen Flow Rate 03/16/23 03:52 03/16/23 04:03 03/16/23 05:34 Temperature 97.8 F Pulse Rate 88 82 70 Respiratory Rate 20 20 Blood Pressure 138/64 Pulse Oximetry 96 96 Oxygen Delivery Room Air Oxygen Flow Rate 03/16/23 08:00 03/16/23 08:30 03/16/23 08:45 Temperature 98.9 F 97.2 F L Pulse Rate 88 102 H 88 Respiratory Rate 16 18 Blood Pressure 147/70 H 139/62 Pulse Oximetry 96 96 Oxygen Delivery Room Air Oxygen Flow Rate 03/16/23 10:19 03/16/23 10:29 03/16/23 10:39 Temperature 97.8 F Pulse Rate 72 73 77 Respiratory Rate 23 H 24 H 24 H Blood Pressure 139/62 125/67 101/68 Pulse Oximetry 96 96 96 Oxygen Delivery Simple Face Mask Simple Face Mask Room Air Oxygen Flow Rate 6 6 03/16/23 10:49 03/16/23 10:59 03/16/23 11:09 Temperature Pulse Rate 74 77 72 Respiratory Rate 25 H 23 H 23 H Blood Pressure 108/71 113/73 115/63 Pulse Oximetry 97 98 96 Oxygen Delivery Room Air
--- NOTE | 2023-03-16 14:46 | PM.PNGS ---
Progress Note: A&P Assessment and Plan (1) Chronic cholecystitis due to cholelithiasis with choledocholithiasis: Code(s): K80.64 - Calculus of gallbladder and bile duct with chronic cholecystitis without obstruction Status: Acute Assessment and Plan: Abdominal pain has essentially resolved. Patient will start back on full liquids after his ERCP. Successful ERCP today with removal of multiple stones with sphincterotomy. Clamped cholangiogram showed no filling defects. Patient having no complaints status post ER CP procedure. Discussed with patient and his that we will plan to go ahead with laparoscopic cholecystectomy on 03/18/2023 at 9:30 a.m. in the morning. The procedure, risks, benefits, and alternatives were discussed. All questions were answered. He understands and agrees to go ahead. (2) Weight loss, intentional: Status: Acute Assessment and Plan: This is the 1st I was aware of this significant weight loss. Apparently patient lost weight for his granddaughter's wedding which occurred in September. I explained that yes, significant weight loss certainly can precipitate gallstones and gallbladder problems such as he has presented with at this time. Subjective Subjective Date/Time Seen: 03/16/23 14:46 Patient reports: no new complaints, pain is less and afebrile Interval history: Patient seen following his ERCP. Having no abdominal pain. Awake and lucid after sedation associated with procedure. Patient's at bedside when I saw him. Patient let me know that he lost 80 lb between March of 2022 and September of 2022. He wondered if this might have contributed to his gallstone disease. Review of Systems Review of Systems: All systems reviewed & are unremarkable except as noted in HPI and below (HPI and those items noted below) Constitutional: Constitutional: Denies chills and Denies fever(s) Cardiovascular: Cardiovascular: Denies chest pain, Denies diaphoresis, Denies dyspnea and Denies paroxysmal nocturnal dyspnea Respiratory: Respiratory: Denies chest congestion, Denies cough and Denies dyspnea Gastrointestinal: Gastrointestinal: Reports as per HPI, Denies abdominal pain, Denies heartburn and Denies nausea Integumentary/Breasts: Skin/Breast: Denies lesions and Denies rash Exam Const: General: cooperative, comfortable, no acute distress, alert and awake Orientation/consciousness: patient oriented x3 and No confusion GI: Inspection: non-distended GI Palp: Yes Soft to palpation, No Tenderness to palpation present (GI), No Guarding due to palpation present (GI) and No Rebound tenderness present Auscultation: normal bowel sounds Neuro: General: patient oriented x3 and no focal motor deficits Extrem: General: no calf tenderness and no edema Psych: Affect: normal affect Insight: Good insight present (Psych) Judgement: Good judgement present (Psych) Objective Data Vital Signs Vital Signs: Vital Signs - 24 hr 03/15/23 15:16 03/15/23 16:00 03/15/23 16:00 Temperature 37.3 C Pulse Rate 85 87 85 Respiratory Rate 20 20 Blood Pressure 148/68 H Pulse Oximetry 97 97 Oxygen Delivery Room Air Oxygen Flow Rate 03/15/23 17:56 03/15/23 20:00 03/15/23 20:33 Temperature 36.9 C Pulse Rate 105 H 91 73 Respiratory Rate 20 Blood Pressure 156/74 H Pulse Oximetry 99 Oxygen Delivery Oxygen Flow Rate 03/15/23 20:00 03/15/23 20:00 03/15/23 21:17 Temperature Pulse Rate 94 94 82 Respiratory Rate 20 Blood Pressure Pulse Oximetry 99 Oxygen Delivery Room Air Oxygen Flow Rate 03/15/23 23:42 03/15/23 23:42 03/15/23 23:54 Temperature 36.7 C Pulse Rate 86 86 86 Respiratory Rate 20 20 Blood Pressure 149/70 H Pulse Oximetry 99 96 Oxygen Delivery Room Air Oxygen Flow Rate 03/16/23 01:22 03/16/23 03:52 03/16/23 03:52 Temperature Pulse Rate 74 88 88 Respiratory Rate 20 Blood Pressure Pulse Oximetry 96 Oxyge
[2023-03-16] MEDS: AMPICILLIN SULB 3 GM/NS 100 ML 3 GM/100 ML VIAL IVPB ×2 (18:28→23:29)
--- NOTE | 2023-03-16 22:44 | PC.NURSE ---
This patient, Avinash Persaud, was transferred to [Stephane rn ] on 03/16/23 at 2244. Personal belongings sent with patient. Report given to [Stephane rn ]. Appropriate documentation sent with patient.
--- NOTE | 2023-03-17 01:40 | PC.NURSE ---
Medications from 03/16/2023 2200 - 03/17/2023 0100 were given by this RN.
[2023-03-17 05:25] VITALS: BP 144/79; PULSE 72; RESP 16; TEMP 35.7; O2SAT 98
[2023-03-17] MEDS: AMPICILLIN SULB 3 GM/NS 100 ML 3 GM/100 ML VIAL IVPB ×4 (06:10→23:59)
[2023-03-17 06:58] LABS: Hematocrit 42.7 % (42.0-52.0); Hemoglobin 13.2 g/dL (14.0-18.0); Mean Corpuscular HGB Conc 30.9 g/dl (32-36); Mean Corpuscular Hemoglobin 29.9 pg (26-34); Mean Corpuscular Volume 96.8 fl (80-100); Mean Platelet Volume 10.7 fl (7.4-10.4); Platelet Count Result 252 k/mm3 (150-375); Red Blood Count 4.41 M/mm3 (4.6-6.20); Red Cell Distribution Width 14.3 % (11.5-14.5); White Blood Count 16.9 K/mm3 (4.5-10.0)
[2023-03-17 07:09] LABS: Alanine Aminotransferase 22 U/L (6-50); Alkaline Phosphatase 149 U/L (38-126); Anion Gap 8 mmol/L (8-16); Aspartate Amino Transferase 31 U/L (17-59); Bilirubin,Total 0.7 mg/dL (0.2-1.3); Blood Urea Nitrogen 26 mg/dL (9-20); Calcium 8.8 mg/dL (8.4-10.2); Carbon Dioxide 25 mmol/L (22-30); Chloride 102 mmol/L (98-107); Estimated CRCL calculation 79 ml/min; Estimated Glomerular Filt Rate > 60; Glucose 125 mg/dL (65-110); Lipase 123 U/L (23-300); Sodium 135 mmol/L (137-145)
[2023-03-17 07:40] LABS: Anisocytosis 1+ (NORMAL); Band Neutrophils Percent 7 % (0-6); Lymphocytes Percent Manual 3 % (18-44); Monocytes Percent Manual 3 % (3-9); Neutrophils Absolute Manual 15.88 K/mm3 (1.3-6.7); Neutrophils Percent Manual 87 % (46-73); Platelet Estimate Adequate (Adequate); Schistocytes None Seen (NORMAL); Total Cells Counted 100
[2023-03-17 08:00] VITALS: O2SAT 96
[2023-03-17 08:28] VITALS: PULSE 61
[2023-03-17] MEDS: ASPIRIN 81 MG CHEWABLE TABLET PO (08:28)
[2023-03-17] MEDS: METOPROLOL SUCCINATE EXT REL 100 MG TABCR PO ×2 (08:28→20:19)
[2023-03-17] MEDS: lisinopriL 20 MG TABLET 40 MG PO (08:29)
[2023-03-17] MEDS: OPTI-GEN TAB 1 TABLET PO (08:29)
[2023-03-17] MEDS: allopurinoL 100 MG TABLET PO (08:29)
[2023-03-17] MEDS: PANTOPRAZOLE SODIUM IV 40 MG VIAL IV PUSH (08:29)
--- NOTE | 2023-03-17 08:32 | PM.PNGS ---
Progress Note: A&P Assessment and Plan (1) Chronic cholecystitis due to cholelithiasis with choledocholithiasis: Code(s): K80.64 - Calculus of gallbladder and bile duct with chronic cholecystitis without obstruction Status: Acute Assessment and Plan: Patient doing great after ERCP yesterday. Plan is to proceed with laparoscopic cholecystectomy tomorrow. Continue IV Zosyn antibiotics. I discussed the surgery with him again this morning. All questions were answered. He agrees to go ahead. Will advance to low-fat diet. Subjective Subjective Date/Time Seen: 03/17/23 08:32 Patient reports: no new complaints, feels better (No complaints or problems after ERCP. Denies abdominal pain. Hungry), pain is less, tolerating liquids well and afebrile Review of Systems Review of Systems: All systems reviewed & are unremarkable except as noted in HPI and below (HPI) Exam Const: General: comfortable and no acute distress Orientation/consciousness: patient oriented x3 Resp: Effort & Inspection: normal respiratory effort Auscultation: clear to auscultation bilaterally Cardio: Rate: regular rate Rhythm: regular rhythm GI: Inspection: normal to inspection and non-distended GI Palp: Yes Soft to palpation, Yes Tenderness to palpation present (GI) (Right upper quadrant over gallbladder, mild), No Guarding due to palpation present (GI) and No Rebound tenderness present Auscultation: normal bowel sounds Neuro: General: patient oriented x3 and no focal motor deficits Extrem: General: no calf tenderness and no edema Psych: Affect: normal affect Insight: Good insight present (Psych) Judgement: Good judgement present (Psych) Objective Data Vital Signs Vital Signs: Vital Signs - 24 hr 03/16/23 08:45 03/16/23 10:19 03/16/23 10:29 Temperature 36.2 C L 36.6 C Pulse Rate 88 72 73 Respiratory Rate 18 23 H 24 H Blood Pressure 139/62 139/62 125/67 Pulse Oximetry 96 96 96 Oxygen Delivery Room Air Simple Face Mask Simple Face Mask Oxygen Flow Rate 6 6 03/16/23 10:39 03/16/23 10:49 03/16/23 10:59 Temperature Pulse Rate 77 74 77 Respiratory Rate 24 H 25 H 23 H Blood Pressure 101/68 108/71 113/73 Pulse Oximetry 96 97 98 Oxygen Delivery Room Air Room Air Room Air Oxygen Flow Rate 03/16/23 11:09 03/16/23 11:50 03/16/23 12:00 Temperature 36.5 C Pulse Rate 72 69 77 Respiratory Rate 23 H 16 Blood Pressure 115/63 128/62 Pulse Oximetry 96 96 Oxygen Delivery Room Air Oxygen Flow Rate 03/16/23 12:00 03/16/23 16:00 03/16/23 16:00 Temperature Pulse Rate 68 Respiratory Rate Blood Pressure Pulse Oximetry Oxygen Delivery Room Air Room Air Oxygen Flow Rate 03/16/23 16:00 03/16/23 18:00 03/16/23 20:08 Temperature 36.6 C 36.2 C L Pulse Rate 66 70 66 Respiratory Rate 16 16 Blood Pressure 136/61 141/74 H Pulse Oximetry 96 95 Oxygen Delivery Oxygen Flow Rate 03/16/23 20:12 03/16/23 20:00 03/16/23 22:12 Temperature 36.2 C L Pulse Rate 82 67 71 Respiratory Rate 16 16 Blood Pressure 134/58 L Pulse Oximetry 95 97 Oxygen Delivery Room Air Oxygen Flow Rate 03/17/23 05:25 03/17/23 08:28 Temperature 35.7 C L Pulse Rate 72 61 Respiratory Rate 16 Blood Pressure 144/79 H Pulse Oximetry 98 Oxygen Delivery Oxygen Flow Rate Intake/Output Intake/Output: Intake & Output 03/14/23 03/15/23 03/16/23 03/17/23 23:59 23:59 23:59 23:59 Intake Total 1730 1080 150 Output Total 1300 1275 700 Balance 430 -195 -550 Meds/Results Medications: Active Medications Generic Name Dose Route Start Last Admin Trade Name Charanjitq PRN Reason Stop Dose Admin Acetaminophen 650 mg 03/14/23 22:49 Acetaminophen 325 Mg Tablet PO Q8H PRN PAIN 1-3 Hydrocodone Bitart/Acetaminophen 1 tab 03/16/23 18:03 Hydrocodone/Acetaminophen (*Crx) 5-325 Mg Tablet PO Q6H PRN Pain Rated 4-6 Allopurinol 100 mg 03/15/23 09:00 0
--- NOTE | 2023-03-17 10:05 | WPDANESPN ---
Anes - Prog Note Post-Op Date/Time: 03/17/23 10:05 Cardiovascular status: normal Respiratory status: normal Airway patency: baseline Mental status: baseline Post-Op hydration status: normal Vital Signs: Last Vital Signs Temp 35.7 C L 03/17/23 05:25 Pulse 61 03/17/23 08:28 Resp 16 03/17/23 05:25 BP 144/79 H 03/17/23 05:25 Pulse Ox 96 03/17/23 08:00 O2 Del Method Room Air 03/17/23 08:00 O2 Flow Rate 6 03/16/23 10:29 Pain Score (VAS): 0 I/O: Intake & Output 03/16/23 03/17/23 03/17/23 23:59 07:59 15:59 Intake Total 690 150 240 Output Total 725 700 Balance -35 -550 240 Laboratory Tests 03/17/23 05:52 03/17/23 05:52 03/17/23 05:52 WBC 16.9 H RBC 4.41 L Hgb 13.2 L Hct 42.7 MCV 96.8 MCH 29.9 MCHC 30.9 L RDW 14.3 Plt Count 252 MPV 10.7 H Immature Gran % (Auto) Not Reportable Neut % (Auto) Not Reportable Lymph % (Auto) Not Reportable [place] % (Auto) Not Reportable Eos % (Auto) Not Reportable Baso % (Auto) Not Reportable Lymph # (Auto) Not Reportable [place] # (Auto) Not Reportable Eos # (Auto) Not Reportable Baso # (Auto) Not Reportable Abs Immat Gran (auto) Not Reportable Absolute Neuts (auto) Not Reportable Absolute Nucleated RBC Not Reportable Total Counted 100 Neutrophils % (Manual) 87 H Band Neutrophils % 7 H Lymphocytes % (Manual) 3 L Monocytes % (Manual) 3 Nucleated RBC % Not Reportable Abs Neuts (Manual) 15.88 H Abs Lymphs (Manual) 0.50 L Abs Monocytes (Manual) 0.50 Platelet Estimate Adequate Anisocytosis 1+ Schistocytes None seen Sodium 135 L Potassium 4.0 Chloride 102 Carbon Dioxide 25 Anion Gap 8 BUN 26 H Creatinine 0.80 Estim Creat Clear Calc 79 Estimated GFR > 60 Glucose 125 H Calcium 8.8 Total Bilirubin 0.7 AST 31 ALT 22 Alkaline Phosphatase 149 H Total Protein 6.0 L Albumin 3.0 L Lipase 123 Microbiology 01/15/24 13:57 Urine Clean Catch Urine Culture - Final Enterococcus species Post-procedural complaints: none Patient Feedback: Patient satisfied with anesthetic care.
--- NOTE | 2023-03-17 12:51 | WPDGIPROGNO ---
Progress Note: A&P Assessment and Plan (1) Chronic cholecystitis due to cholelithiasis with choledocholithiasis: Code(s): K80.64 - Calculus of gallbladder and bile duct with chronic cholecystitis without obstruction Status: Acute Assessment and Plan: multiple stones removed yesterday with ercp and much better lap santo tomorrow (2) RUQ pain: Code(s): R10.11 - Right upper quadrant pain Status: Acute Assessment and Plan: almost gone, better (3) Leukocytosis: Code(s): D72.829 - Elevated white blood cell count, unspecified Status: Acute Assessment and Plan: on abx, trending down (4) Elevated alkaline phosphatase level: Code(s): R74.8 - Abnormal levels of other serum enzymes Status: Acute Subjective Date/time seen: 03/17/23 12:51 Interval history: ercp yesterday with multiple stones removed today without any pain and feeling much better Review of Systems Review of Systems: All systems reviewed & are unremarkable except as noted in HPI and below Exam Const: General: comfortable and no acute distress Orientation/consciousness: patient oriented x3 HENMT: Face/Nose/Sinus: Normal nares present Eyes: Sclera: sclerae normal Neck: Neck: supple Resp: Effort & Inspection: normal respiratory effort Auscultation: clear to auscultation bilaterally Cardio: Rate: regular rate Rhythm: regular rhythm GI: Inspection: normal to inspection and non-distended GI Palp: Yes Soft to palpation, Yes Tenderness to palpation present (GI) (Right upper quadrant, mild), No Guarding due to palpation present (GI) and No Rebound tenderness present Auscultation: normal bowel sounds Skin: General skin exam: normal color Neuro: General: patient oriented x3 and no focal motor deficits Extrem: General: no calf tenderness and no edema Psych: Affect: normal affect Insight: Good insight present (Psych) Judgement: Good judgement present (Psych) Objective Data Vital Signs Vital Signs: Vital Signs - 24 hr 03/16/23 16:00 03/16/23 16:00 03/16/23 16:00 Temperature 97.9 F Pulse Rate 68 66 Respiratory Rate 16 Blood Pressure 136/61 Pulse Oximetry 96 Oxygen Delivery Room Air 03/16/23 18:00 03/16/23 20:08 03/16/23 20:12 Temperature 97.2 F L Pulse Rate 70 66 82 Respiratory Rate 16 Blood Pressure 141/74 H Pulse Oximetry 95 Oxygen Delivery 03/16/23 20:00 03/16/23 22:12 03/17/23 05:25 Temperature 97.2 F L 96.2 F L Pulse Rate 67 71 72 Respiratory Rate 16 16 16 Blood Pressure 134/58 L 144/79 H Pulse Oximetry 95 97 98 Oxygen Delivery Room Air 03/17/23 08:28 03/17/23 08:00 Temperature Pulse Rate 61 Respiratory Rate Blood Pressure Pulse Oximetry 96 Oxygen Delivery Room Air Intake/Output Intake/Output: Intake & Output 03/14/23 03/15/23 03/16/23 03/17/23 23:59 23:59 23:59 23:59 Intake Total 1730 1080 490 Output Total 1300 1275 700 Balance 430 -227 -210 Meds/Results Medications: Active Medications Generic Name Dose Route Start Last Admin Trade Name Freq PRN Reason Stop Dose Admin Acetaminophen 650 mg 03/14/23 22:49 Acetaminophen 325 Mg Tablet PO Q8H PRN PAIN 1-3 Hydrocodone Bitart/Acetaminophen 1 tab 03/16/23 18:03 Hydrocodone/Acetaminophen (*Crx) 5-325 Mg Tablet PO Q6H PRN Pain Rated 4-6 Allopurinol 100 mg 03/15/23 09:00 03/17/23 08:29 Allopurinol 100 Mg Tablet PO 100 mg DAILY [facility] Administration Aspirin 81 mg 03/15/23 08:00 03/17/23 08:28 Aspirin 81 Mg Chewable Tablet PO 81 mg DAILY@0800 [facility] Administration Hydromorphone HCl 0.5 mg 03/14/23 17:24 03/14/23 20:40 Hydromorphone Hcl Inj (*Crx) 1 Mg/Ml Syr IV PUSH 0.5 mg Q4H PRN Administration Pain Rated 7-10 Ampicillin Sodium/Sulbactam Sodium 3 gm in 100 mls @ 200 mls/hr 03/16/23 18:00 03/17/23 11:56 Unasyn 3 Gm/Ns 100 Ml IVPB 100 mls/hr Q6H [facility] Administration L
[2023-03-17 14:00] VITALS: BP 136/77; PULSE 68; RESP 18; TEMP 36.2; O2SAT 97
--- NOTE | 2023-03-17 15:34 | PM.IMPN ---
Progress Note: A&P Assessment and Plan (1) Choledocholithiasis: Code(s): K80.50 - Calculus of bile duct without cholangitis or cholecystitis without obstruction Status: Acute Assessment and Plan: Patient presents with abdominal pain and found to have choledocholithiasis. GI consulted and appreciate their input. ERCP 03/16 with multiple stones removed after sphincterotomy and balloon sweep. Plan for cholecystectomy on 03/18/2023 Patient on his home metoprolol (2) Cholelithiasis: Code(s): K80.20 - Calculus of gallbladder without cholecystitis without obstruction Status: Acute Assessment and Plan: As above. Plan for cholecystectomy tomorrow (3) Leukocytosis: Code(s): D72.829 - Elevated white blood cell count, unspecified Status: Acute Assessment and Plan: White count climbed to 25K probably related to above. Urine culture growing Enterococcus species that is pansensitive He was on Zosyn but was changed to Unasyn 03/16/2023. White count improving. Monitor white count. (4) Essential (primary) hypertension: Code(s): I10 - Essential (primary) hypertension Status: Acute Assessment and Plan: Patient's blood pressure was reviewed on 03/17 Blood pressure remains well controlled. Will continue to monitor Plan DVT prophylaxis with SCDs Code status full code Subjective Date/time seen: 03/17/23 15:34 Interval history: 82-year-old male with history of hypertension, gout is presenting with epigastric pain and currently being treated for choledocholithiasis. Eating well. No nausea, vomiting or diarrhea. No abdominal pain with eating. No chest pain or shortness of breath. Exam Narrative: AF 97.2 136/77 681 8 97% ra Gen - NARD Chest -clear to auscultation bilaterally CV - RRR S1/S2 Abd - Soft, NT/ND, Positive BS Ext - No pedal edema Psych - Nml mood and affect Skin - Warm and dry Objective Data Vital Signs Vital Signs: Vital Signs - 24 hr 03/16/23 16:00 03/16/23 16:00 03/16/23 16:00 Temperature 97.9 F Pulse Rate 68 66 Respiratory Rate 16 Blood Pressure 136/61 Pulse Oximetry 96 Oxygen Delivery Room Air 03/16/23 18:00 03/16/23 20:08 03/16/23 20:12 Temperature 97.2 F L Pulse Rate 70 66 82 Respiratory Rate 16 Blood Pressure 141/74 H Pulse Oximetry 95 Oxygen Delivery 03/16/23 20:00 03/16/23 22:12 03/17/23 05:25 Temperature 97.2 F L 96.2 F L Pulse Rate 67 71 72 Respiratory Rate 16 16 16 Blood Pressure 134/58 L 144/79 H Pulse Oximetry 95 97 98 Oxygen Delivery Room Air 03/17/23 08:28 03/17/23 08:00 03/17/23 14:00 Temperature 97.2 F L Pulse Rate 61 68 Respiratory Rate 18 Blood Pressure 136/77 Pulse Oximetry 96 97 Oxygen Delivery Room Air Intake/Output Intake/Output: Intake & Output 03/14/23 03/15/23 03/16/23 03/17/23 23:59 23:59 23:59 23:59 Intake Total 1730 1080 830 Output Total 1300 1275 700 Balance 430 -195 130 Meds/Results Medications: Active Medications Generic Name Dose Route Start Last Admin Trade Name Charanjitq PRN Reason Stop Dose Admin Acetaminophen 650 mg 03/14/23 22:49 Acetaminophen 325 Mg Tablet PO Q8H PRN PAIN 1-3 Hydrocodone Bitart/Acetaminophen 1 tab 03/16/23 18:03 Hydrocodone/Acetaminophen (*Crx) 5-325 Mg Tablet PO Q6H PRN Pain Rated 4-6 Allopurinol 100 mg 03/15/23 09:00 03/17/23 08:29 Allopurinol 100 Mg Tablet PO 100 mg DAILY [facility] Administration Aspirin 81 mg 03/15/23 08:00 03/17/23 08:28 Aspirin 81 Mg Chewable Tablet PO 81 mg DAILY@0800 [facility] Administration Hydromorphone HCl 0.5 mg 03/14/23 17:24 03/14/23 20:40 Hydromorphone Hcl Inj (*Crx) 1 Mg/Ml Syr IV PUSH 0.5 mg Q4H PRN Administration Pain Rated 7-10 Ampicillin Sodium/Sulbactam Sodium 3 gm in 100 mls @ 200 mls/hr 03/16/23 18:00 03/17/23 12:56 Unasyn 3 Gm/Ns 100 Ml IVPB Infused
[2023-03-17 21:25] VITALS: BP 158/78; PULSE 61; RESP 20; TEMP 36.3; O2SAT 98
[2023-03-18] VITALS (14 sets, daily range): BP systolic 131–193; BP diastolic 67–89; PULSE 64–82; RESP 12–24; TEMP 35.8–36.8; O2SAT 93–100
[2023-03-18] MEDS: AMPICILLIN SULB 3 GM/NS 100 ML 3 GM/100 ML VIAL IVPB ×3 (05:14→18:39)
[2023-03-18 06:47] LABS: Basophils Percent Auto 0.1 % (0.2-1.2); Hematocrit 40.1 % (42.0-52.0); Hemoglobin 12.4 g/dL (14.0-18.0); Immature Granulocyte Absolute 0.08 K/mm3 (0.00-0.031); Immature Granulocyte Percent A 0.5 % (0-0.5); Lymphocytes Percent Auto 5.3 % (18.3-44.2); Mean Corpuscular HGB Conc 30.9 g/dl (32-36); Mean Corpuscular Volume 97.1 fl (80-100); Mean Platelet Volume 10.6 fl (7.4-10.4); Monocytes Absolute Auto 0.9 K/mm3 (0.1-0.6); Monocytes Percent Auto 5.7 % (2.6-8.5); Neutrophils Absolute Auto 13.4 K/mm3 (1.3-6.7); Neutrophils Percent Auto 88.4 % (45.5-73.1); Platelet Count Result 259 k/mm3 (150-375); Red Blood Count 4.13 M/mm3 (4.6-6.20); Red Cell Distribution Width 14.2 % (11.5-14.5); White Blood Count 15.2 K/mm3 (4.5-10.0)
[2023-03-18 06:55] LABS: Alanine Aminotransferase 37 U/L (6-50); Albumin Level 2.7 g/dL (3.5-5.1); Alkaline Phosphatase 130 U/L (38-126); Anion Gap 3 mmol/L (8-16); Aspartate Amino Transferase 44 U/L (17-59); Bilirubin,Total 0.5 mg/dL (0.2-1.3); Blood Urea Nitrogen 26 mg/dL (9-20); Calcium 8.4 mg/dL (8.4-10.2); Carbon Dioxide 29 mmol/L (22-30); Chloride 103 mmol/L (98-107); Estimated CRCL calculation 78 ml/min; Estimated Glomerular Filt Rate > 60; Glucose 112 mg/dL (65-110); Lipase 214 U/L (23-300); Potassium 3.6 mmol/L (3.4-5.0); Sodium 135 mmol/L (137-145)
--- NOTE | 2023-03-18 07:20 | WPDHPUPDATE1 ---
History and Physical Update Update Date/Time: 03/18/23 07:20 History and Physical has been reviewed, including an updated exam of the patient. There are NO changes in the patient's condition. Risks, benefits, and alternatives have been discussed and questions answered. Patient agrees to proceed with procedure.
--- NOTE | 2023-03-18 08:44 | WPDANESEPPF ---
Anes - Initial Pre Proc Eval Procedure: Operation Date: 03/18/23 09:30 Proposed Procedures p Laparoscopic Cholecystectomy - Wesley Stinson MD Date/Time: 03/18/23 08:44 Surgeon: Bethanie Lynn DO Pre Op Diagnosis: Chest Pain,Choledocholithiasis Patient Data Age: 82 Gender: M Height: 1.78 m Weight: 106.8 kg Last Vital Signs Temp 36.3 C L 03/18/23 08:28 Pulse 64 03/18/23 08:28 Resp 14 03/18/23 08:28 BP 163/67 H 03/18/23 08:28 Pulse Ox 99 03/18/23 08:28 O2 Del Method Room Air 03/18/23 08:28 O2 Flow Rate 6 03/16/23 10:29 Allergies Allergy/AdvReac Type Severity Reaction Status Date / Time sulfanilamide Allergy Intermediate Rash Verified 03/16/23 08:43 Home Medications Medication Instructions Recorded Confirmed Type acetaminophen 650 mg 650 mg PO Q8H PRN pain #7 tabs 03/23/20 03/14/23 Rx tablet,extended release (Tylenol Arthritis Pain) aspirin 81 mg tablet,delayed 81 mg PO DAILY 03/08/23 03/14/23 History release (Adult Aspirin Regimen) lisinopril 40 mg tablet 40 mg PO DAILY #90 tabs 03/08/23 03/14/23 Rx allopurinol 100 mg tablet 100 mg PO DAILY 03/14/23 03/14/23 History metoprolol succinate 100 mg 100 mg PO BID 03/14/23 03/14/23 History tablet,extended release 24 hr [id number] 300 mcg-K 60 1 tablet PO DAILY 03/14/23 03/14/23 History mcg-lycop 600 mcg-lutein 300 mcg tablet (Centrum Silver Men) Laboratory Tests 03/18/23 05:46 WBC 15.2 H K/mm3 (4.5-10.0) RBC 4.13 L M/mm3 (4.6-6.20) Hgb 12.4 L g/dL (14.0-18.0) Hct 40.1 L % (42.0-52.0) MCV 97.1 fl (80-100) MCH 30.0 pg (26-34) MCHC 30.9 L g/dl (32-36) RDW 14.2 % (11.5-14.5) Plt Count 259 k/mm3 (150-375) MPV 10.6 H fl (7.4-10.4) Immature Gran % (Auto) 0.5 % (0-0.5) Neut % (Auto) 88.4 H % (45.5-73.1) Lymph % (Auto) 5.3 L % (18.3-44.2) Gove % (Auto) 5.7 % (2.6-8.5) Eos % (Auto) 0.0 % (0-4.4) Baso % (Auto) 0.1 L % (0.2-1.2) Lymph # (Auto) 0.80 L K/mm3 (0.9-3.2) Gove # (Auto) 0.9 H K/mm3 (0.1-0.6) Eos # (Auto) 0.0 K/mm3 (0-0.3) Baso # (Auto) 0.0 K/mm3 (0.0-0.1) Abs Immat Gran (auto) 0.08 H K/mm3 (0.00-0.031) Absolute Neuts (auto) 13.4 H K/mm3 (1.3-6.7) Absolute Nucleated RBC 0.0 K/mm3 (0.0-0.012) Nucleated RBC % 0.0 % (0.0-0.2) Sodium 135 L mmol/L (137-145) Potassium 3.6 mmol/L (3.4-5.0) Chloride 103 mmol/L (98-107) Carbon Dioxide 29 mmol/L (22-30) Anion Gap 3 L mmol/L (8-16) BUN 26 H mg/dL (9-20) Creatinine 0.80 mg/dL (0.7-1.3) Estim Creat Clear Calc 78 ml/min Estimated GFR > 60 (59 - ) Glucose 112 H mg/dL (65-110) Calcium 8.4 mg/dL (8.4-10.2) Total Bilirubin 0.5 mg/dL (0.2-1.3) AST 44 U/L (17-59) ALT 37 U/L (6-50) Alkaline Phosphatase 130 H U/L (38-126) Total Protein 6.0 L g/dL (6.3-8.2) Albumin 2.7 L g/dL (3.5-5.1) Lipase 214 U/L (23-300) Patient hx anesthesia problems: none Family hx anesthesia problems: none Results Review: All pre-operative results and documents have been reviewed as part of the pre-operative evaluation. [facility] Past Medical History Medical History (Updated 03/16/23 @ 14:54 by Wesley Stinson MD) Arthritis Colon polyp Essential (primary) hypertension Gout Hearing loss RUQ pain Skin cancer Social anxiety disorder Surgical History Surgical History History of bilateral knee replacement History of colonoscopy with polypectomy History of squamous cell carcinoma excision Right leg. Family History Family History Father Cerebrovascular accident Family history of lung cancer Tobacco abuse Mother Family history of diabetes mellitus in first degree relative , Onset Age: 64
[2023-03-18] MEDS: LACTATED RINGERS 1,000 ML 30 ML IV CONT (09:00)
[2023-03-18] MEDS: BUPIVACAINE/EPINEPHRINE 0.5% 30 ML VIAL INFILTRATE (10:40)
--- NOTE | 2023-03-18 10:53 | PM.IMPN ---
Progress Note: A&P Assessment and Plan (1) Choledocholithiasis: Code(s): K80.50 - Calculus of bile duct without cholangitis or cholecystitis without obstruction Status: Acute Assessment and Plan: Patient presents with abdominal pain and found to have choledocholithiasis. GI consulted and appreciate their input. ERCP 03/16 with multiple stones removed after sphincterotomy and balloon sweep. Patient back from his lap cholecystectomy today Appears to have tolerated the procedure well. Routine post-op management. (2) Cholelithiasis: Code(s): K80.20 - Calculus of gallbladder without cholecystitis without obstruction Status: Acute Assessment and Plan: As above. (3) Leukocytosis: Code(s): D72.829 - Elevated white blood cell count, unspecified Status: Acute Assessment and Plan: White count climbed to 25K probably related to above. Urine culture growing Enterococcus species that is pansensitive He was on Zosyn but was changed to Unasyn 03/16/2023. White count improving. Monitor white count. (4) Essential (primary) hypertension: Code(s): I10 - Essential (primary) hypertension Status: Acute Assessment and Plan: Patient's blood pressure was reviewed on 03/18 Blood pressure higher today probably related to pain Will continue to monitor Plan DVT prophylaxis with SCDs Code status full code Subjective Date/time seen: 03/18/23 10:53 Interval history: 82-year-old male with history of hypertension, gout is presenting with epigastric pain and currently being treated for choledocholithiasis. Pain tolerable. no CP or SOB Exam Narrative: AF 97.9 175/74 71 16 98% ra Gen - NARD Chest -clear anteriorly CV - RRR S1/S2 Abd - Soft, RUQ drain with dressing clean and dry, Smaller abd incisions well approximated and dry Ext - No pedal edema Psych - Nml mood and affect Skin - Warm and dry Objective Data Vital Signs Vital Signs: Vital Signs - 24 hr 03/17/23 14:00 03/17/23 21:25 03/17/23 20:00 Temperature 97.2 F L 97.3 F L Pulse Rate 68 61 Respiratory Rate 18 20 Blood Pressure 136/77 158/78 H Pulse Oximetry 97 98 Oxygen Delivery Room Air 03/18/23 05:50 03/18/23 08:28 Temperature 96.9 F L 97.3 F L Pulse Rate 69 64 Respiratory Rate 16 14 Blood Pressure 157/69 H 163/67 H Pulse Oximetry 97 99 Oxygen Delivery Room Air Intake/Output Intake/Output: Intake & Output 03/15/23 03/16/23 03/17/23 03/18/23 23:59 23:59 23:59 23:59 Intake Total 1730 1080 1170 150 Output Total 1300 1275 700 450 Balance 430 -195 470 -300 Meds/Results Medications: Active Medications Generic Name Dose Route Start Last Admin Trade Name Freq PRN Reason Stop Dose Admin Acetaminophen 650 mg 03/14/23 22:49 Acetaminophen 325 Mg Tablet PO Q8H PRN PAIN 1-3 Hydrocodone Bitart/Acetaminophen 1 tab 03/16/23 18:03 Hydrocodone/Acetaminophen (*Crx) 5-325 Mg Tablet PO Q6H PRN Pain Rated 4-6 Allopurinol 100 mg 03/15/23 09:00 03/17/23 08:29 Allopurinol 100 Mg Tablet PO 100 mg DAILY [facility] Administration Aspirin 81 mg 03/15/23 08:00 03/17/23 08:28 Aspirin 81 Mg Chewable Tablet PO 81 mg DAILY@0800 [facility] Administration Fentanyl Citrate 25 mcg 03/18/23 08:44 Fentanyl Citrate Inj (*Crx) 100 Mcg/2 Ml Vial IV PUSH Q2M PRN Pain Hydromorphone HCl 0.5 mg 03/14/23 17:24 03/14/23 20:40 Hydromorphone Hcl Inj (*Crx) 1 Mg/Ml Syr IV PUSH 0.5 mg Q4H PRN Administration Pain Rated 7-10 Ampicillin Sodium/Sulbactam Sodium 3 gm in 100 mls @ 200 mls/hr 03/16/23 18:00 03/18/23 05:14 Unasyn 3 Gm/Ns 100 Ml IVPB 100 mls/hr Q6H [facility] Administration Lactated Ringer's 1,000 mls @ 30 mls/hr 03/18/23 08:45 03/18/23 09:00 Lr - Lactated Ringers Iv IV CONT 30 mls/hr .Q24H [facility] Administration Lactated Ringer's 1,000 mls @ 30 mls/hr 03/18/23 08:45 Lr - Lactated
--- NOTE | 2023-03-18 12:36 | W.PM.PROC2 ---
Procedure Note - Detailed Date of Procedure 03/18/23 Pre-op Diagnosis Cholelithiasis with chronic cholecystitis, choledocholithiasis Post-op Diagnosis Same Procedure Performed Laparoscopic appendectomy Surgeon Wesley Stinson MD Recreation Superintendent Prerna Gomez [facility] Anesthesia General and Local Indications Patient is an 82-year-old man who experienced severe epigastric pain after eating a fatty meal. He came to the emergency room and CT scan showed not only multiple gallstones but also choledocholithiasis. His liver enzymes and lipase were normal although his alkaline phosphatase was elevated. Two days ago he had an ERCP which cleared out many stones from his bile duct and final clamped cholangiogram showed no residual filling defects. He is taken to surgery now for laparoscopic cholecystectomy. Findings This was an exceptionally difficult laparoscopic cholecystectomy. The procedure took over 2 hours which is at least 3 if not 4 times as long as usual. His gallbladder had severe chronic inflammation and many stones. It was extremely dilated and the even after aspirating the gallbladder contents and decompressing the gallbladder as much as we could, it would not fit completely in the Endo-Catch bag with only a small portion of the gallbladder not within the bag. Unfortunately, the size of the gallbladder led to spillage of some of the gallbladder contents as well as some stone ends. All stones were retrieved still no open others were found. He had an extremely inflamed triangle of Calot. The cystic duct to was very dilute it. I had to ligate it within it Vicryl endoloop rather than using clips. The tissue planes between the gallbladder and the liver were very much obscured. Most of the dissection of the gallbladder off the liver was a either a choice between entry into the gallbladder or taking off some of the liver surface. With the inflammation and the nature of the gallbladder, there was much more blood loss than usual. Estimated blood loss was 200 cc which is 10 times what is usually loss during a laparoscopic cholecystectomy. We had to make a fairly large incision in the epigastrium to remove the gallbladder with its thickened ramirez, large size, numerous stones. Essentially this turned into a mini laparotomy to extract the gallbladder. This required not only fascial closure but layered closure of the subcutaneous. The bladder contents had a foul odor. The gallbladder fossa of the liver had significant oozing of blood which took a long time to stop using cautery. Even then I was concerned of continued oozing from the liver surface and FloSeal was used to assist with hemostasis. Patient had to have a large bore, 19 Uzbek, Monty drain placed in the right upper quadrant due to the concerns over oozing of blood and the foul-smelling gallbladder contents. Description of Procedure Patient was taken to the operating room and induced into general anesthesia. The abdomen is prepped and draped. Trocars were placed in the usual fashion after 1st insufflating in the epigastrium with a varies needle. Patient was placed in reverse Trendelenburg. There were inflammatory adhesions of the omentum to essentially the entire gallbladder. Adhesions of the duodenum and colon to the gallbladder were also noted. These adhesions were carefully taken down. Once enough of the fundus of the gallbladder was exposed, I decompressed the gallbladder with a laparoscopic aspirator. Bloody clear fluid returned. I did not see any sign of bile. This seemed to decompress the gallbladder quite well. We then retracted the gallbladder anterosuperiorly and continued taking adhesions down to the infundibulum. Dissection then was carried out with traction on the infundibulum. The gallbladder was still extremely large. Dissection of the cystic duct and cystic artery were quite difficult due to the severe inflammation and also trying to retract the very large gallbladder. Eventually
[2023-03-18] MEDS: fentaNYL CITRATE INJ (*CRX) 100 MCG/2 ML VIAL 25 MCG IV PUSH ×3 (12:51→15:20)
[2023-03-18] MEDS: LACTATED RINGERS 1,000 ML 100 ML IV CONT (13:55)
[2023-03-18] MEDS: oxyCODONE/ACETAMINOPHEN (*CRX) 5-325 MG TABLET 0.5 TABLET PO ×2 (13:57→18:44)
--- NOTE | 2023-03-18 15:19 | WPDGIPROGNO ---
Progress Note: A&P Assessment and Plan (1) Chronic cholecystitis due to cholelithiasis with choledocholithiasis: Code(s): K80.64 - Calculus of gallbladder and bile duct with chronic cholecystitis without obstruction Status: Acute Assessment and Plan: successful ercp to remove multiples bile duct stones had cholecystectomy but it was difficult and now has KATELYNN drain, this is monitored by surgery (2) RUQ pain: Code(s): R10.11 - Right upper quadrant pain Status: Acute (3) Leukocytosis: Code(s): D72.829 - Elevated white blood cell count, unspecified Status: Acute Assessment and Plan: on abx Subjective Date/time seen: 03/18/23 15:19 Interval history: had difficult cholecystectomy because adhesions/localized inflammation he is recovering from surgery, KATELYNN drain in place Review of Systems Review of Systems: All systems reviewed & are unremarkable except as noted in HPI and below Exam Const: General: no acute distress HENMT: Face/Nose/Sinus: Normal nares present Eyes: Sclera: sclerae normal Neck: Neck: supple Resp: Effort & Inspection: normal respiratory effort Cardio: Rate: regular rate GI: Other: tender, KATELYNN drain in place Skin: General skin exam: normal color Neuro: Speech: normal speech Extrem: General: normal to inspection Psych: Mental Status: mental status grossly normal Objective Data Vital Signs Vital Signs: Vital Signs - 24 hr 03/17/23 21:25 03/17/23 20:00 03/18/23 05:50 Temperature 97.3 F L 96.9 F L Pulse Rate 61 69 Respiratory Rate 20 16 Blood Pressure 158/78 H 157/69 H Pulse Oximetry 98 97 Oxygen Delivery Room Air Oxygen Flow Rate 03/18/23 08:28 03/18/23 12:08 03/18/23 12:35 Temperature 97.3 F L 97.2 F L Pulse Rate 64 81 70 Respiratory Rate 14 24 H 20 Blood Pressure 163/67 H 131/78 150/77 H Pulse Oximetry 99 100 100 Oxygen Delivery Room Air Nasal Cannula Nasal Cannula Oxygen Flow Rate 4 4 03/18/23 12:20 03/18/23 12:40 03/18/23 12:50 Temperature Pulse Rate 75 77 Respiratory Rate 22 H 18 Blood Pressure 148/75 H 156/77 H Pulse Oximetry 100 100 100 Oxygen Delivery Nasal Cannula Nasal Cannula Room Air Oxygen Flow Rate 4 2 03/18/23 13:05 03/18/23 13:31 03/18/23 13:46 Temperature 97.3 F L 97.7 F 97.9 F Pulse Rate 73 70 71 Respiratory Rate 18 12 16 Blood Pressure 165/82 H 166/70 H 163/81 H Pulse Oximetry 100 96 93 Oxygen Delivery Room Air Oxygen Flow Rate Intake/Output Intake/Output: Intake & Output 03/15/23 03/16/23 03/17/23 03/18/23 23:59 23:59 23:59 23:59 Intake Total 1730 1080 1170 450 Output Total 1300 1275 700 915 Balance 430 -195 470 -465 Meds/Results Medications: Active Medications Generic Name Dose Route Start Last Admin Trade Name Freq PRN Reason Stop Dose Admin Allopurinol 100 mg 03/15/23 09:00 03/18/23 11:55 Allopurinol 100 Mg Tablet PO Not Given DAILY [facility] Aspirin 81 mg 03/15/23 08:00 03/18/23 11:55 Aspirin 81 Mg Chewable Tablet PO Not Given DAILY@0800 [facility] Enoxaparin Sodium 40 mg 03/19/23 09:00 Enoxaparin 40 Mg/0.4 Ml Syringe SUB-Q DAILY [facility] Famotidine 20 mg 03/18/23 21:00 Famotidine 20 Mg Tablet PO Q12HR [facility] Fentanyl Citrate 25 mcg 03/18/23 13:15 Fentanyl Citrate Inj (*Crx) 100 Mcg/2 Ml Vial IV PUSH Q2H PRN Pain Rated 7-10 Ampicillin Sodium/Sulbactam Sodium 3 gm in 100 mls @ 200 mls/hr 03/16/23 18:00 03/18/23 12:47 Unasyn 3 Gm/Ns 100 Ml IVPB Infused Q6H [facility] Infusion Lactated Ringer's 1,000 mls @ 100 mls/hr 03/18/23 13:15 03/18/23 13:55 Lr - Lactated Ringers Iv IV CONT 100 mls/hr .Q10H [facility] Administration Ibuprofen 600 mg 03/18/23 13:15 Ibuprofen 600 Mg Tablet PO Q6H PRN Pain Rated 4-6 Lisinopril 40 mg 03/15/23 09:00 03/18/23 11:55 Lisinopril 20 Mg Tablet PO Not Given DAILY [facility] Metoprolol Succinate 100 mg 03/15/23 09:00 03/18/23
[2023-03-18] MEDS: IBUPROFEN 600 MG TABLET PO (21:35)
[2023-03-18] MEDS: FAMOTIDINE 20 MG TABLET PO (21:36)
[2023-03-18] MEDS: METOPROLOL SUCCINATE EXT REL 100 MG TABCR PO (21:36)
[2023-03-19] MEDS: LACTATED RINGERS 1,000 ML 100 ML IV CONT (00:04)
[2023-03-19] MEDS: AMPICILLIN SULB 3 GM/NS 100 ML 3 GM/100 ML VIAL IVPB ×2 (00:04→05:00)
[2023-03-19] MEDS: oxyCODONE/ACETAMINOPHEN (*CRX) 5-325 MG TABLET 0.5 TABLET PO ×3 (00:08→08:49)
[2023-03-19 05:00] VITALS: BP 176/84; PULSE 69; RESP 18; TEMP 36.1; O2SAT 97
[2023-03-19 05:30] VITALS: BP 148/72; PULSE 63; RESP 18; TEMP 36.6; O2SAT 97
[2023-03-19 06:39] LABS: Basophils Percent Auto 0.2 % (0.2-1.2); Eosinophils Percent Auto 0.1 % (0-4.4); Hematocrit 39.4 % (42.0-52.0); Hemoglobin 12.4 g/dL (14.0-18.0); Immature Granulocyte Absolute 0.07 K/mm3 (0.00-0.031); Immature Granulocyte Percent A 0.6 % (0-0.5); Immature Platelet Fraction Pct 3.2 % (0.9-11.2); Lymphocytes Absolute Auto 0.68 K/mm3 (0.9-3.2); Lymphocytes Percent Auto 5.6 % (18.3-44.2); Mean Corpuscular HGB Conc 31.5 g/dl (32-36); Mean Corpuscular Hemoglobin 30.4 pg (26-34); Mean Corpuscular Volume 96.6 fl (80-100); Mean Platelet Volume 10.6 fl (7.4-10.4); Monocytes Absolute Auto 1.1 K/mm3 (0.1-0.6); Monocytes Percent Auto 9.4 % (2.6-8.5); Neutrophils Absolute Auto 10.2 K/mm3 (1.3-6.7); Neutrophils Percent Auto 84.1 % (45.5-73.1); Platelet Count Result 239 k/mm3 (150-375); Red Blood Count 4.08 M/mm3 (4.6-6.20); Red Cell Distribution Width 14.1 % (11.5-14.5); White Blood Count 12.1 K/mm3 (4.5-10.0)
[2023-03-19 06:57] LABS: Alanine Aminotransferase 47 U/L (6-50); Albumin Level 2.7 g/dL (3.5-5.1); Alkaline Phosphatase 112 U/L (38-126); Anion Gap 4 mmol/L (8-16); Aspartate Amino Transferase 48 U/L (17-59); Bilirubin,Total 0.6 mg/dL (0.2-1.3); Blood Urea Nitrogen 25 mg/dL (9-20); Calcium 8.2 mg/dL (8.4-10.2); Carbon Dioxide 27 mmol/L (22-30); Chloride 103 mmol/L (98-107); Estimated CRCL calculation 81 ml/min; Estimated Glomerular Filt Rate > 60; Glucose 132 mg/dL (65-110); Potassium 4.1 mmol/L (3.4-5.0); Sodium 134 mmol/L (137-145)
[2023-03-19 07:00] VITALS: BP 137/66; PULSE 62; RESP 18; TEMP 36.3; O2SAT 97
[2023-03-19 08:00] VITALS: PULSE 62; RESP 18; O2SAT 97
[2023-03-19] MEDS: METOPROLOL SUCCINATE EXT REL 100 MG TABCR PO (08:50)
[2023-03-19] MEDS: FAMOTIDINE 20 MG TABLET PO (08:50)
[2023-03-19] MEDS: lisinopriL 20 MG TABLET 40 MG PO (08:50)
[2023-03-19] MEDS: ASPIRIN 81 MG CHEWABLE TABLET PO (08:50)
[2023-03-19] MEDS: allopurinoL 100 MG TABLET PO (08:50)
[2023-03-19] MEDS: OPTI-GEN TAB 1 TABLET PO (08:50)
[2023-03-19] MEDS: ENOXAPARIN 40 MG/0.4 ML SYRINGE SUB-Q (09:07)
--- NOTE | 2023-03-19 09:08 | WPDGIPROGNO ---
Progress Note: A&P Assessment and Plan (1) Chronic cholecystitis due to cholelithiasis with choledocholithiasis: Code(s): K80.64 - Calculus of gallbladder and bile duct with chronic cholecystitis without obstruction Status: Acute Assessment and Plan: successful ercp to remove multiples bile duct stones recovery from cholecystectomy and doing better\ home soon, per surgery team (2) RUQ pain: Code(s): R10.11 - Right upper quadrant pain Status: Acute Assessment and Plan: improved (3) Leukocytosis: Code(s): D72.829 - Elevated white blood cell count, unspecified Status: Acute Assessment and Plan: trending down, on abx Subjective Date/time seen: 03/19/23 09:08 Interval history: tolerated diet, feeling better today Review of Systems Review of Systems: All systems reviewed & are unremarkable except as noted in HPI and below Exam Const: General: no acute distress HENMT: Face/Nose/Sinus: Normal nares present Eyes: Sclera: sclerae normal Neck: Neck: supple Resp: Effort & Inspection: normal respiratory effort Cardio: Rate: regular rate GI: Inspection: non-distended Other: less tender, KATELYNN drain in place Skin: General skin exam: normal color Neuro: Speech: normal speech Extrem: General: normal to inspection Psych: Mental Status: mental status grossly normal Objective Data Vital Signs Vital Signs: Vital Signs - 24 hr 03/18/23 12:08 03/18/23 12:35 03/18/23 12:20 Temperature 97.2 F L Pulse Rate 81 70 75 Respiratory Rate 24 H 20 22 H Blood Pressure 131/78 150/77 H 148/75 H Pulse Oximetry 100 100 100 Oxygen Delivery Nasal Cannula Nasal Cannula Nasal Cannula Oxygen Flow Rate 4 4 4 03/18/23 12:40 03/18/23 12:50 03/18/23 13:05 Temperature 97.3 F L Pulse Rate 77 73 Respiratory Rate 18 18 Blood Pressure 156/77 H 165/82 H Pulse Oximetry 100 100 100 Oxygen Delivery Nasal Cannula Room Air Room Air Oxygen Flow Rate 2 03/18/23 13:31 03/18/23 13:46 03/18/23 14:16 Temperature 97.7 F 97.9 F 97.7 F Pulse Rate 70 71 72 Respiratory Rate 12 16 16 Blood Pressure 166/70 H 163/81 H 176/80 H Pulse Oximetry 96 93 97 Oxygen Delivery Oxygen Flow Rate 03/18/23 15:16 03/18/23 20:00 03/18/23 21:45 Temperature 97.9 F 98.3 F Pulse Rate 71 82 Respiratory Rate 16 16 Blood Pressure 175/74 H 193/89 H Pulse Oximetry 98 94 Oxygen Delivery Room Air Oxygen Flow Rate 03/19/23 05:00 03/19/23 05:30 03/19/23 07:00 Temperature 97 F L 97.8 F 97.4 F L Pulse Rate 69 63 62 Respiratory Rate 18 18 18 Blood Pressure 176/84 H 148/72 H 137/66 Pulse Oximetry 97 97 97 Oxygen Delivery Oxygen Flow Rate Intake/Output Intake/Output: Intake & Output 03/16/23 03/17/23 03/18/23 03/19/23 23:59 23:59 23:59 23:59 Intake Total 1080 1170 2160 1380 Output Total 1275 700 945 390 Balance -357 598 9171 990 Meds/Results Medications: Active Medications Generic Name Dose Route Start Last Admin Trade Name Freq PRN Reason Stop Dose Admin Allopurinol 100 mg 03/15/23 09:00 03/19/23 08:50 Allopurinol 100 Mg Tablet PO 100 mg DAILY DALTON Administration Aspirin 81 mg 03/15/23 08:00 03/19/23 08:50 Aspirin 81 Mg Chewable Tablet PO 81 mg DAILY@0800 DALTON Administration Enoxaparin Sodium 40 mg 03/19/23 09:00 03/19/23 09:07 Enoxaparin 40 Mg/0.4 Ml Syringe SUB-Q 40 mg DAILY DALTON Administration Famotidine 20 mg 03/18/23 21:00 03/19/23 08:50 Famotidine 20 Mg Tablet PO 20 mg Q12HR DALTON Administration Fentanyl Citrate 25 mcg 03/18/23 13:15 03/18/23 15:20 Fentanyl Citrate Inj (*Crx) 100 Mcg/2 Ml Vial IV PUSH 25 mcg Q2H PRN Administration Pain Rated 7-10 Ampicillin Sodium/Sulbactam Sodium 3 gm in 100 mls @ 200 mls/hr 03/16/23 18:00 03/19/23 05:00 Unasyn 3 Gm/Ns 100 Ml IVPB 100 mls/hr Q6H DALTON Administration Lactated Ringer's 1,000 mls @ 100 mls/hr 03/18/23 13:15 03/01
[2023-03-19 11:00] VITALS: BP 130/63; PULSE 69; RESP 20; TEMP 36.6; O2SAT 98
--- NOTE | 2023-03-19 11:42 | WPDPN ---
Progress Note: A&P Assessment and Plan (1) Chronic cholecystitis due to cholelithiasis with choledocholithiasis: Code(s): K80.64 - Calculus of gallbladder and bile duct with chronic cholecystitis without obstruction Status: Acute Assessment and Plan: Patient doing well postoperatively after laparoscopic cholecystectomy which was difficult yesterday. KATELYNN drain remains in place without any evidence of bile leak or any bleeding. Dr. Stinson would like to have the KATELYNN drain remain in place until he sees in the office next week. Home health has been arranged through case management. He ate well this morning without any problems. He will be discharged home today. Orders for home oral antibiotics and pain medications have been entered. Patient is a follow-up see Dr. Stinson in the office next . Patient will need to sponge bath until the drain is removed. Nurses should teach drain care prior to discharge. Subjective Date/time seen: 03/19/23 11:42 Interval history: Patient is doing well today. He ate breakfast well without any problems. No bleeding from his KATELYNN drain. Hemoglobin has been stable since surgery on immediate postop hemoglobin and repeat hemoglobin today this morning. Output from the drain is minimal blood tinged serous. No bile. Exam GI: Other: Abdomen is obese but soft. Port site incisions are healing well. Right upper quadrant KATELYNN drain output is minimal. Bile output from the drain. Some serous fluid which is blood tinged. Objective Data Vital Signs Vital Signs: Vital Signs - 24 hr 03/18/23 12:08 03/18/23 12:35 03/18/23 12:20 Temperature 36.2 C L Pulse Rate 81 70 75 Respiratory Rate 24 H 20 22 H Blood Pressure 131/78 150/77 H 148/75 H Pulse Oximetry 100 100 100 Oxygen Delivery Nasal Cannula Nasal Cannula Nasal Cannula Oxygen Flow Rate 4 4 4 03/18/23 12:40 03/18/23 12:50 03/18/23 13:05 Temperature 36.3 C L Pulse Rate 77 73 Respiratory Rate 18 18 Blood Pressure 156/77 H 165/82 H Pulse Oximetry 100 100 100 Oxygen Delivery Nasal Cannula Room Air Room Air Oxygen Flow Rate 2 03/18/23 13:31 03/18/23 13:46 03/18/23 14:16 Temperature 36.5 C 36.6 C 36.5 C Pulse Rate 70 71 72 Respiratory Rate 12 16 16 Blood Pressure 166/70 H 163/81 H 176/80 H Pulse Oximetry 96 93 97 Oxygen Delivery Oxygen Flow Rate 03/18/23 15:16 03/18/23 20:00 03/18/23 21:45 Temperature 36.6 C 36.8 C Pulse Rate 71 82 Respiratory Rate 16 16 Blood Pressure 175/74 H 193/89 H Pulse Oximetry 98 94 Oxygen Delivery Room Air Oxygen Flow Rate 03/19/23 05:00 03/19/23 05:30 03/19/23 07:00 Temperature 36.1 C L 36.6 C 36.3 C L Pulse Rate 69 63 62 Respiratory Rate 18 18 18 Blood Pressure 176/84 H 148/72 H 137/66 Pulse Oximetry 97 97 97 Oxygen Delivery Oxygen Flow Rate 03/19/23 08:00 03/19/23 11:00 Temperature 36.6 C Pulse Rate 62 69 Respiratory Rate 18 20 Blood Pressure 130/63 Pulse Oximetry 97 98 Oxygen Delivery Room Air Oxygen Flow Rate Intake/Output Intake/Output: Intake & Output 03/16/23 03/17/23 03/18/23 03/19/23 23:59 23:59 23:59 23:59 Intake Total 1080 1170 2160 1380 Output Total 1275 700 945 840 Balance -124 532 6441 540 Meds/Results Medications: Active Medications Generic Name Dose Route Start Last Admin Trade Name Charanjitq PRN Reason Stop Dose Admin Allopurinol 100 mg 03/15/23 09:00 03/19/23 08:50 Allopurinol 100 Mg Tablet PO 100 mg DAILY DALTON Administration Aspirin 81 mg 03/15/23 08:00 03/19/23 08:50 Aspirin 81 Mg Chewable Tablet PO 81 mg DAILY@0800 DALTON Administration Enoxaparin Sodium 40 mg 03/19/23 09:00 03/19/23 09:07 Enoxaparin 40 Mg/0.4 Ml Syringe SUB-Q 40 mg DAILY DALTON Administration Famotidine 20 mg 03/18/23 21:00 03/19/23 08:50 Famotidine 20 Mg Tablet PO 20 mg Q12HR DALTON Administration Fentanyl Citrate 25 mcg 03/18/23 13:15 03/18/23 15:20 Fentanyl Citrate Inj (*Crx) 100 M
--- NOTE | 2023-03-19 13:04 | PM.DS ---
DS: Admitting Diagnosis Discharge Date 03/19/23 Admitting Diagnosis Epigastric pain DS: Discharge Diagnosis Discharge Diagnosis (1) Choledocholithiasis: Code(s): K80.50 - Calculus of bile duct without cholangitis or cholecystitis without obstruction Status: Acute (2) Cholelithiasis: Code(s): K80.20 - Calculus of gallbladder without cholecystitis without obstruction Status: Acute (3) Leukocytosis: Code(s): D72.829 - Elevated white blood cell count, unspecified Status: Acute (4) Essential (primary) hypertension: Code(s): I10 - Essential (primary) hypertension Status: Acute (5) UTI (urinary tract infection): Code(s): N39.0 - Urinary tract infection, site not specified Status: Acute DS: Summary Hospital Course Reason for hospitalization: 82-year-old male with history of hypertension, gout is presenting with epigastric pain and currently being treated for choledocholithiasis. Please see H&P for details. Hospital Course: Patient presents with abdominal pain and found to have choledocholithiasis. GI consulted and appreciate their input. ERCP 03/16 with multiple stones removed after sphincterotomy and balloon sweep. White count climbed to 25K probably related to choledocholithiasis and/or UTI. Urine culture grew Enterococcus species that was pansensitive. He was on Zosyn but was changed to Unasyn. White count improved. Patient was seen by General Surgery and underwent a laparoscopic cholecystectomy 03/18. He tolerated the procedure well. He is eating normally. He feels ready for discharge. He overall did well and was able to be discharged home on 03/19/23 Status at Discharge Cognitive/behavioral status at discharge: stable Time Spent with Patient Time attestation: Total time spent providing and/or coordinating discharge services: 34 minutes Time spent: Greater than 30 minutes Exam Narrative: AF 97.8 130/63 69 20 98% ra Gen - NARD Chest -clear anteriorly CV - RRR S1/S2 Abd - Soft, RUQ drain with serosang fluid in bulb. Dressing clean and dry. Smaller abd incisions well approximated and dry Ext - No pedal edema Psych - Nml mood and affect Skin - Warm and dry DS: Data Data Completed and Pending Pending studies at discharge: Pending at discharge 03/18/23 10:35 Surgical [PTH] Routine Labs on day of discharge: Labs from last 24 hours 03/19/23 05:44 WBC 12.1 H RBC 4.08 L Hgb 12.4 L Hct 39.4 L MCV 96.6 MCH 30.4 MCHC 31.5 L RDW 14.1 Plt Count 239 MPV 10.6 H Immature Gran % (Auto) 0.6 H Neut % (Auto) 84.1 H Lymph % (Auto) 5.6 L Floyd % (Auto) 9.4 H Eos % (Auto) 0.1 Baso % (Auto) 0.2 Lymph # (Auto) 0.68 L Floyd # (Auto) 1.1 H Eos # (Auto) 0.0 Baso # (Auto) 0.0 Abs Immat Gran (auto) 0.07 H Absolute Neuts (auto) 10.2 H Absolute Nucleated RBC 0.0 Nucleated RBC % 0.0 % Immature Plt Fraction 3.2 Sodium 134 L Potassium 4.1 Chloride 103 Carbon Dioxide 27 Anion Gap 4 L BUN 25 H Creatinine 0.80 Estim Creat Clear Calc 81 Estimated GFR > 60 Glucose 132 H Calcium 8.2 L Total Bilirubin 0.6 AST 48 ALT 47 Alkaline Phosphatase 112 Total Protein 6.0 L Albumin 2.7 L Discharge Plan Discharge Attending physician on discharge: Steven Louis Consulting providers: Francisco Javier Ross; Wesley Stinson Discharging Clinician: Steven Louis Anticipated Discharge Date/Time: 03/19/23 13:11 Patient Disposition: Home Health Service Activity: may shower, no straining and as tolerated Diet: low fat Wound Care Instructions: keep dressing dry and remove dressing to shower Discharge Instructions: Per Care Coordination Patient has been accepted to have [facility] for RN, PT, OT [phone] [facility] will call to arranged a time to see you after discharge. Surgery discharge instructions: Ambulate 3-4 x per day and as tolerated.
--- NOTE | 2023-03-24 08:56 | IVDEFINITY ---
Prior to administration of IV Definity the patient was educated on the risks and benefits of the imaging enhancing agent including potential adverse side effects. The patient verbalized understanding. Allergies were verified. No exclusion criteria were identified and at least one of the following inclusion criteria were met: 1) physician request, 2) patient technically difficult to image (per the [place] [employer]ocardi[employer] guidelines of two or more segments not discernable within the apical view), or 3) questionable left ventricular function. ?
== END 2023-03-19 14:18 | disposition home health service (06) | DRG 418 ==
LOC: ANHED 18:50 → ANHIMU 23:44 → ANH3MEDSUR 03-17 07:52 → ANHIMU 03-21 14:15
PROVIDERS: Internal Medicine Gastroenterology; Physician Assistant; Student in an Organized Health Care Education/Training Program; Surgery; Admitting Provider Internal Medicine; Emergency Provider Emergency Medicine; PCP Family Medicine; Visit Provider Internal Medicine
PROC: 0FC98ZZ Extirpation of Matter from Common Bile Duct, Via Natural or Artificial Opening Endoscopic (ICD-10-PCS; CPT 43260; principal; 2023-03-16 10:00)
PROC: 0FT44ZZ Resection of Gallbladder, Percutaneous Endoscopic Approach (ICD-10-PCS; CPT 47562; principal; 2023-03-18 09:30)
DX: K80.64 Calculus of gallbladder and bile duct with chronic cholecystitis without obstruction (principal); N39.0 Urinary tract infection, site not specified; K57.10 Diverticulosis of small intestine without perforation or abscess without bleeding; M19.011 Primary osteoarthritis, right shoulder; M17.0 Bilateral primary osteoarthritis of knee; F41.9 Anxiety disorder, unspecified; I10 Essential (primary) hypertension; D72.829 Elevated white blood cell count, unspecified; M10.9 Gout, unspecified; E66.9 Obesity, unspecified; R63.4 Abnormal weight loss; Z96.653 Presence of artificial knee joint, bilateral; Z68.36 Body mass index [BMI] 36.0-36.9, adult; Z85.828 Personal history of other malignant neoplasm of skin; B95.2 Enterococcus as the cause of diseases classified elsewhere
CPT/HCPCS: 36415; 71045; 74177; 74329; 76705; 80053; 80061; 81001; 83690; 83735; 84484; 85025; 85055; 85610; 85730; 86850; 86900; 86901; 87077; 87086; 87088; 87186; 88304; 93005; 96374; 96375; 99285; A9270; C1713; C8929; C9113; J0295; J0330; J1100; J1170; J1596; J1650; J2270; J2371; J2405; J2543; J2704; J3010; J7030; J7120; Q9957; Q9966; Q9967

== ENCOUNTER 2023-03-23 12:14 | Outpatient (CLI) | payer MEDICARE, OTHER, SELFPAY ==
[2023-03-23 13:21] LABS: Hematocrit 41.2 % (42.0-52.0); Hemoglobin 12.6 g/dL (14.0-18.0); Mean Corpuscular HGB Conc 30.6 g/dl (32-36); Mean Corpuscular Hemoglobin 29.6 pg (26-34); Mean Corpuscular Volume 96.9 fl (80-100); Mean Platelet Volume 10.1 fl (7.4-10.4); Platelet Count Result 347 k/mm3 (150-375); Red Blood Count 4.25 M/mm3 (4.6-6.20); Red Cell Distribution Width 14.2 % (11.5-14.5); White Blood Count 10.6 K/mm3 (4.5-10.0)
[2023-03-23 13:38] LABS: Alanine Aminotransferase 27 U/L (6-50); Albumin Level 2.9 g/dL (3.5-5.1); Alkaline Phosphatase 135 U/L (38-126); Anion Gap 4 mmol/L (8-16); Aspartate Amino Transferase 26 U/L (17-59); Bilirubin,Total 0.5 mg/dL (0.2-1.3); Blood Urea Nitrogen 23 mg/dL (9-20); Calcium 8.2 mg/dL (8.4-10.2); Carbon Dioxide 31 mmol/L (22-30); Chloride 100 mmol/L (98-107); Estimated Glomerular Filt Rate > 60; Glucose 101 mg/dL (65-110); Lipase 328 U/L (23-300); Sodium 135 mmol/L (137-145)
== END 2023-03-23 12:15 | disposition home or self-care (01) ==
LOC: ANHLAB 12:18
PROVIDERS: PCP Family Medicine; Visit Provider Nurse Practitioner Family
DX: K80.00 Calculus of gallbladder with acute cholecystitis without obstruction (principal)
CPT/HCPCS: 36415; 80053; 83690; 85027

== ENCOUNTER 2023-05-04 01:07 | Day surgery (SDC) | payer MEDICARE, OTHER, SELFPAY ==
--- NOTE | 2023-05-02 13:24 | PC.NURSE ---
Report to the Outpatient Waiting Room, entrance under the green pavilion located off [address] [facility], at time _1200 on date _05/04/23 . Planned Procedure Time: __2:00 PM . Time changes happen often and if your time is changed the preop area will call you the afternoon before. - You and your visitor will be asked to self-screen and do not enter if you have any COVID symptoms. - A mask is optional within the hospital at this time. Patients may have clear liquids (water, carbonated beverages, clear teas, apple juice) until 3 hours prior to surgery ( 11 AM )with a maximum of 20 ounces. - No food from midnight until time of surgery - Infants may have breast milk until 4 hours before surgery, infant formula 6 hours prior to surgery. - Children will be allowed to drink immediately following surgery. If applicable, please bring a bottle or sippy cup to assist with drinking. Juice, water, soda, and popsicles are readily available. For infants on formula, please bring formula the day of surgery. Pacifiers are allowed. Take the following medications with a SIP of water the morning of surgery: ____METOPROLOL DO NOT STOP ANY OF YOUR OTHER PRESCRIPTION MEDICATIONS PRIOR TO SURGERY ?EXCEPT THE FOLLOWING Medications to discontinue per physician __HOLD ALL VITAMINS AND SUPPLEMENTS 3 DAYS PRE OP. PT STATES LAST DOSE 05/02/23 Please no make-up, nail paraguayan, hairspray, perfume, deodorant, or body powder the day of surgery. No jewelry (including any body piercings) or valuables the day of surgery, leave them at home. Please take a shower or bath the night before, or the morning of, surgery with an antibacterial soap. Wear comfortable, loose fitting clothing. Children are encouraged to wear pajamas. - Jewelry must be removed prior to entering the operating room. Rings and piercings that are not removed may be cut off. - The hospital will not accept responsibility for valuables. - Please leave all valuables, including medications, at home the day of surgery. If you are going home after surgery, a licensed hazardous materials driver must drive you home. - NO public transportation without another adult if you receive anesthesia. - We recommend that an adult stay with you for 24 hours following discharge. - We also recommend that you do not drive, make important decision, drink alcoholic beverages, or take any drugs that were not prescribed by your health care provider for at least 24 hours after your discharge time. For Pediatric surgeries, we recommend two adults accompany the child home. Follow any additional instructions given to you from your surgeon. If you or anyone in your household have experienced Covid symptoms in the past week, please notify your surgeon or the nurse liaison at the phone number below for possible testing. Telephone instructions given to __PATIENT and asked if any additional questions and then verbalized understanding. Patient advised to call surgeon office or pre surgery nurse liaison [phone] if any additional questions.
[2023-05-02 13:32] VITALS: BMI 33.7
--- NOTE | 2023-05-03 14:25 | WPDANESEPPF ---
Anes - Initial Pre Proc Eval Procedure: Operation Date: 05/04/23 14:00 Proposed Procedures p Incision and Drainage Abdominal Wound Abscess - Wesley Stinson MD Date/Time: 05/03/23 14:25 Surgeon: Wesley Stinson MD Pre Op Diagnosis: abdominal wound abscess Patient Data Age: 83 Gender: M Height: 1.78 m Weight: 106.6 kg Allergies Allergy/AdvReac Type Severity Reaction Status Date / Time sulfanilamide Allergy Intermediate Rash Verified 05/02/23 13:18 Home Medications Medication Instructions Recorded Confirmed Type acetaminophen 650 mg 650 mg PO Q8H PRN pain #7 tabs 03/23/20 05/02/23 Rx tablet,extended release (Tylenol Arthritis Pain) aspirin 81 mg tablet,delayed 81 mg PO DAILY 03/08/23 05/02/23 History release (Adult Aspirin Regimen) lisinopril 40 mg tablet 40 mg PO DAILY #90 tabs 03/08/23 05/02/23 Rx allopurinol 100 mg tablet 100 mg PO DAILY 03/14/23 05/02/23 History cszthghp-ki-vvndl 300 mcg-K 60 1 tablet PO DAILY 03/14/23 05/02/23 History mcg-lycop 600 mcg-lutein 300 mcg tablet (Centrum Silver Men) ibuprofen 600 mg tablet 600 mg PO Q6H PRN pain #14 tabs 03/18/23 05/02/23 Rx famotidine 20 mg tablet 20 mg PO Q12HR #60 tabs 03/19/23 05/02/23 Rx cholecalciferol (vitamin D3) 125 125 mcg PO DAILY 03/23/23 05/02/23 History mcg (5,000 unit) capsule magnesium hydroxide 400 mg/5 mL 30 ml PO PRN PRN Constipation 03/23/23 05/02/23 History oral suspension (Milk of Magnesia) metoprolol succinate 100 mg 100 mg PO .QD 03/23/23 05/02/23 History tablet,extended release 24 hr Patient hx anesthesia problems: none Family hx anesthesia problems: none Results Review: All pre-operative results and documents have been reviewed as part of the pre-operative evaluation. [facility] Past Medical History Medical History Acute calculous cholecystitis Arthritis Colon polyp Essential (primary) hypertension Gout Hearing loss RUQ pain Skin cancer Social anxiety disorder Surgical History Surgical History History of bilateral knee replacement History of colonoscopy with polypectomy History of laparoscopic cholecystectomy 03/18/23 DHARMESH History of squamous cell carcinoma excision Right leg. Family History Family History Father Cerebrovascular accident Family history of lung cancer Tobacco abuse Mother Family history of diabetes mellitus in first degree relative , Onset Age: 64 succumbed to injuries from MVC. Sibling Heart disease Diabetes mellitus Other Hypertension Social History Social History Social History: Surrogate medical decision maker: Disha Persaud, spouse. Code status: Full code. Smoking status: Never smoker Second hand tobacco smoke exposure: Yes Alcohol intake: current Drinks per week: 1 Substance use: never Substance use type: does not use Do You Feel Safe in your Home?: Yes Lack of Transportation: No Lack of Food: Never True Current Housing: I Have Housing Concerned About Future Housing: No Difficulty Paying Gas/Electric Bills: No Difficulty Paying for Meds: No Currently Unemployed: No Education: Trade/Vocational Certificate Difficulty w/ Childcare or Family Care: No Living arrangements: with family Additional living arrangements comments: Lives with spouse in [place]. 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
[2023-05-04] VITALS (9 sets, daily range): BP systolic 131–155; BP diastolic 64–86; PULSE 56–73; RESP 12–15; TEMP 36.4–36.5; O2SAT 96–100; BMI 34.5
--- NOTE | 2023-05-04 09:40 | WPDHPUPDATE1 ---
History and Physical Update Update Date/Time: 05/04/23 09:40 History and Physical has been reviewed, including an updated exam of the patient. There are NO changes in the patient's condition. Risks, benefits, and alternatives have been discussed and questions answered. Patient agrees to proceed with procedure.
[2023-05-04] MEDS: LACTATED RINGERS 1,000 ML 30 ML IV CONT (12:20)
[2023-05-04] MEDS: ceFAZolin 2 GM/D5W 50 ML 2 GM/50 ML BAG IVPB (12:36)
--- NOTE | 2023-05-04 12:58 | SUR.OPER ---
Culture taken to lab per LUBA Shelley.
--- NOTE | 2023-05-04 13:01 | SUR.OPER ---
Culture received by Nicolasa in Lab.
--- NOTE | 2023-05-04 13:22 | W.PM.PROC2 ---
Procedure Note - Detailed Date of Procedure 05/04/23 Pre-op Diagnosis abdominal wound abscess Post-op Diagnosis Other (Multiple retained gallstones) Procedure Performed Incision and drainage of complicated abdominal wound abscess, removal retained gallstones Surgeon Wesley Stinson MD Secondary Set Up Man Norma Vizcarra [facility] Anesthesia General Indications Patient underwent in difficult cholecystectomy on 03/18/2019 for for acute and chronic gangrenous cholecystitis. He had many gallstones in the gallbladder. These were black and pigmented stones. There was not only stones but small bits of stone material. Due to the severe inflammation the gallbladder wall was friable and tore easily. Also the gallbladder was exceptionally large with a very thickened wall. Many stones were spilled during the gallbladder removal. The gallbladder was also so large that I could not fit all of it into an Endo-Catch bag. It was extricated through the 10 11 epigastric trocar site. Even then, the epigastric trocar site had to be enlarged significantly such that gallbladder removal was almost a mini laparotomy. Patient reported that he had some drainage from his epigastric trocar site, this is where the gallbladder extraction was done. He came to the office on Tuesday this week and clearly had purulent fluid draining from the epigastric trocar site. Probing showed a very deep abscess. He has been on Keflex oral antibiotics and is now taken to surgery for incision and drainage of complex wound abscess probably due to retained gallstones. Findings Patient did have a very deep abscess but it was all above the abdominal wall fascia. Two sizable stones, 5 mm and 3 mm, were found in the wound and removed, sending them to pathology. There was a lot of pigmented gallstone grit in the wound as well. The infection tunneled to the right and slightly to the left in the deep subcutaneous. All foreign material and purulent fluid had been done removed and drained by the conclusion of the procedure Description of Procedure Patient was taken to surgery and induced into general anesthesia per LMA. The lateral most aspect of the previous epigastric incision was the area that was draining. This was to the right side. This was 1st probed with a small curved clamp and again much purulent fluid as well as an abscess cavity was noted deep in the subcutaneous. With the initial purulent fluid coming forward there was obviously black small bits of stones coming from the abscess. I cultured the abscess with a swab for aerobes anaerobes and Gram stain. I opened the previous incision most of its length. I had opened the subcutaneous and found the main abscess cavity which was just above the abdominal wall fascia. Cautery was used for hemostasis of the subcutaneous. Still more black pigmented stone bits were found in the deeper aspects. But 2 small stones as described above, 5 mm and 3 mm, were also found and were removed. They were sent to pathology for gross only. The abscess cavity tunneled about us cm to the patient select left with more purulent fluid there. It tunneled about 3 cm to the patient's right. More purulence and black stone eager it was found there as well. I opened the skin and subcutaneous to expose the tunneling to the patient's right making the wound larger but still in a transverse orientation. At this point, it appeared that the wound had been opened and all of the areas of infection had been removed. I then irrigated the wound thoroughly with a dilute peroxide saline mix. This clean wound wound thoroughly and no bleed Ng or any other areas of purulence, stones, or devitalized tissue was found. The wound was then packed with 2 in iodoform Nu Gauze and dressed with fluffs and Medipore tape. Patient tolerated the procedure well. Sponge and needle counts were correct x2 cultures for aerobes anaerobes and Gram stain was sent. Estimated Blood Loss -5 Packing Yes (2 in iodoform Nu Gauze)
[2023-05-04] MEDS: fentaNYL CITRATE INJ (*CRX) 100 MCG/2 ML VIAL 25 MCG IV PUSH ×3 (13:32→13:46)
[2023-05-04] MEDS: oxyCODONE HCL (*CRX) 5 MG TAB IR PO (14:31)
== END 2023-05-04 15:10 | disposition home or self-care (01) ==
PROVIDERS: PCP Family Medicine; Visit Provider Surgery
PROC: (CPT 10061; principal; 2023-05-04 14:00)
DX: T81.41XA Infection following a procedure, superficial incisional surgical site, initial encounter (principal); K91.86 Retained cholelithiasis following cholecystectomy; Y83.8 Other surgical procedures as the cause of abnormal reaction of the patient, or of later complication, without mention of misadventure at the time of the procedure; Z90.49 Acquired absence of other specified parts of digestive tract; I10 Essential (primary) hypertension; M10.9 Gout, unspecified; E66.9 Obesity, unspecified; Z68.34 Body mass index [BMI] 34.0-34.9, adult; Z79.82 Long term (current) use of aspirin
CPT/HCPCS: 10061; 87070; 87075; 87076; 87077; 87185; 87186; 87205; 88300; A9270; J0690; J1100; J2405; J2704; J3010; J7120

== ENCOUNTER 2023-06-03 08:46 | Inpatient (IN) | payer MEDICARE, OTHER, SELFPAY ==
[2023-06-03] VITALS (10 sets, daily range): BP systolic 140–181; BP diastolic 77–104; PULSE 72–85; RESP 16–26; TEMP 36.8–37.7; O2SAT 95–100; BMI 35.4
--- NOTE | ~2023-06-03 | US_ITS ---
EXAMINATION: US right upper quadrant DATE: 06/08/2023 08:47 INDICATION: Abnormal liver function tests. TECHNIQUE: Multiple grayscale and Doppler ultrasound images of the abdomen were obtained. COMPARISON: MRCP 06/04/2023 FINDINGS: The pancreas is obscured by bowel gas. The liver is normal without focal lesion. There is n ormal flow in main portal vein. The gallbladder is absent. The common duct is normal and measures 4 m m. There is a small volume of ascites in the gallbladder fossa. There is a right pleural effusion. IMPRESSION: 1. Small volume of ascites in the gallbladder fossa. 2. Right pleural effusion. Reviewed, dictated and finalized at location A.
--- NOTE | ~2023-06-03 | XR_ITS ---
EXAM: XR abdomen/kub 1V DATE: 06/06/2023 20:58 HISTORY: abdominal pain post ERCP . COMPARISON: CT cap 06/03/2023. FINDINGS: Right upper quadrant surgical clips. Normal bowel gas pattern. No organomegaly. No abnorma l abdominal calcification. Degenerative changes in the spine and hips. IMPRESSION: No radiographic evidence of obstruction or ileus. Reviewed, dictated and finalized at location K.
--- NOTE | ~2023-06-03 | MR_ITS ---
EXAMINATION: MR MRCP wo/w con/w 3D wo ind DATE: 06/04/2023 07:33 INDICATION: Choledocholithiasis. TECHNIQUE: Magnetic resonance imaging (MRI) of the abdomen was performed without and with 20 mL Multi Elisabeth intravenous contrast. Sequences included coronal T2-weighted FS FSE, coronal T2-weighted FSE, a xial T1-weighted LAVA, coronal FS FIESTA, axial dual-echo T1-weighted SPGR, coronal lava-FLEX, sagitt al T2-weighted FSE, axial T2-weighted FSE, and axial DWI. Thick-slab T2-weighted FSE images were obta ined for magnetic resonance cholangiopancreatography (MRCP). Maximum intensity projection 3-D reconst ructions of the volumetric data were created by the technologist. Postcontrast sequences included cor onal LAVA-flex and time course of axial T1-weighted LAVA. COMPARISON: CT abdomen and pelvis 06/03/2023 FINDINGS: ABDOMEN MRI: There is a small right pleural effusion. There is pneumobilia in left hepatic lobe, like ly from sphincterotomy. The gallbladder is absent. The spleen is normal in size. The pancreas, adrena l glands, and kidneys are normal. There are no dilated loops of bowel. There is a midline wound with an anterior abdominal wall. There is a small volume of perihepatic ascites. There are no pathological ly enlarged lymph nodes. ABDOMEN MRCP: The common duct is normal in size and measures 10 mm. There are multiple stones in the common duct measuring up to 10 mm. IMPRESSION: 1. Choledocholithiasis. 2. Small volume of perihepatic ascites. 3. Small right pleural effusion. Reviewed, dictated and finalized at location A.
--- NOTE | ~2023-06-03 | US_ITS ---
EXAMINATION: US thoracentesis DATE: 06/03/2023 18:00 INDICATION: pleural effusion TECHNIQUE: The procedure and its risks and benefits were discussed with the patient. Potential risks discussed included bleeding, infection, and pneumothorax. The patient understood the risks and agreed to proceed. The skin was prepped and draped in sterile fashion. 1% lidocaine was used for local anes thesia. Under ultrasound guidance, a 5 Fr catheter with trochar was advanced into the pleural effusio n. Fluid was aspirated. The catheter was removed, and a dressing was applied. There were no immediate complications. FINDINGS: Ultrasound images demonstrate a small right pleural effusion and the catheter within the fluid. IMPRESSION: 1. Successful ultrasound-guided thoracentesis yielding 650 mL of cloudy yellow fluid. Reviewed, dictated and finalized at location A.
--- NOTE | ~2023-06-03 | XR_ITS ---
EXAMINATION: XR ERCP DATE: 06/06/2023 14:38 INDICATION: Right upper quadrant abdominal pain. TECHNIQUE: 9 spot fluoroscopic images of the right upper quadrant were obtained during endoscopic ret rograde cholangiopancreatography (ERCP). Fluoroscopy exposure time was 323 seconds. COMPARISON: MRCP 06/04/2023 FINDINGS: Endoscope is in the second portion the duodenum. There is contrast opacification of the com mon duct. There are multiple stones in the common duct. Surgical clips in the right upper quadrant ar e likely from cholecystectomy. IMPRESSION: 1. Choledocholithiasis. Please refer to the ERCP procedure note for additional details. Reviewed, dictated and finalized at location A.
--- NOTE | ~2023-06-03 | CT_ITS ---
EXAMINATION: CTA chest PE abdomen pel DATE: 06/03/2023 10:11 INDICATION: Chest pain and shortness of breath. Epigastric pain. TECHNIQUE: Computed tomography (CT) pulmonary angiogram of the chest was performed with 100 mL Omnipa que-350 intravenous contrast. Additional 3D reconstructions utilizing coronal maximum intensity proje ction (MIP) were performed. CT of the abdomen and pelvis was performed with intravenous contrast util izing the same contrast bolus following a short delay. Automated exposure control and iterative recon struction technique were employed. The dose-length product was 2415.13 mGy-cm. COMPARISON: None FINDINGS: Chest: Excellent contrast opacification of the pulmonary arteries. There is mild respiratory motion artifact primarily in the upper lungs were decreases sensitivity in some of the smaller subsegmental pulmonar y arteries. No pulmonary embolism identified. Small right pleural effusion with partial collapse of t he right lower lobe and mild dependent compressive atelectasis in the posterior segment of the right upper lobe. Mild discoid atelectasis along the cephalad aspect of the left major fissure and in the l ingula. No pulmonary edema or left-sided pleural effusion. Heart size normal. Atherosclerotic coronar y artery calcifications. There is enlargement of the central pulmonary arteries consistent with pulmo nary arterial hypertension. Aortic valve calcific location. Thoracic aorta is normal in caliber with no dissection. No pathologically enlarged by 6 lymphadenopathy. Moderate thoracic spondylosis with br idging osteophytes at multiple levels consistent with diffuse idiopathic skeletal hyperostosis (DISH) . Abdomen/pelvis: Cholecystectomy clips in the gallbladder fossa. There is some pneumobilia in the nondependent liver. There appears to be some high attenuation material within the common bile duct suspicious for possibl e gallstones. There also a few small calcified likely dropped gallstones along with a small amount of surrounding high attenuation material along the posterior margin of liver potentially residual posto perative blood. Spleen, pancreas and bilateral adrenal glands are normal. Again seen are few small no nobstructing stones in the left kidney. 4 mm right renal cyst. There appears to be some packing mater ial within a midline supraumbilical abdominal wall surgical wound. Tiny fat-containing umbilical cal ia. Bladder is normal. Bowels including the appendix are normal with no obstruction. No free fluid in the pelvis. Mild lumbar levoscoliosis with moderate spondylosis. IMPRESSION: 1. No pulmonary embolism. 2. Small right pleural effusion with partial collapse of the right lower lobe. 3. High attenuation material likely representing small amount of postoperative blood along with a few likely dropped gallstones along the posterior margin of the right hepatic lobe. 4. Pneumobilia likely related to the recent cholecystectomy. 5. Suggestion of some high attenuation material within the common bile duct which could represent blo od, sludge or choledocholithiasis. Correlate with liver function tests and consider MRCP for further evaluation as clinically indicated. 6. Nonobstructing left nephrolithiasis. Reviewed, dictated and finalized at location A. IMPRESSION: 1. No pulmonary embolism. 2. Small right pleural effusion with partial collapse of the right lower lobe. 3. High attenuation material likely representing small amount of postoperative blood along with a few likely dropped gallstones along the posterior margin of the right hepatic lobe. 4. Pneumobilia likely related to the recent cholecystectomy. 5. Suggestion of some high attenuation material within the common bile duct whi ch could represent blood, sludge or choledocholithiasis. Correlate with
--- NOTE | ~2023-06-03 | XR_ITS ---
EXAMINATION: [id number] DATE: 06/03/2023 17:51 INDICATION: Status post right thoracentesis TECHNIQUE: frontal view of the chest was obtained. COMPARISON: Chest radiograph dated 06/03/2023 FINDINGS: Improved aeration at the right lung base with no discernible residual pleural effusion post thoracent esis. Mild streaky discoid atelectasis at the left costophrenic angle. Calcified nodules in the left lower lobe consistent with old granulomatous disease. No pneumothorax. Heart size is normal. Severe r ight glenohumeral osteoarthritis. IMPRESSION: 1. Resolution of the prior small right pleural effusion with improved aeration at the right lung base post right thoracentesis. 2. Mild streaky left basilar atelectasis. Reviewed, dictated and finalized at location A.
--- NOTE | ~2023-06-03 | XR_ITS ---
Portable chest x-ray Comparison: 06/03/2023 Clinical History: Pleural effusion Findings: Probable layering right pleural effusion present. Calcified left basilar granuloma present . Cardiomediastinal silhouette is stable. Bones and soft tissues are unremarkable. Impression: Probable small layering right pleural effusion. Reviewed, dictated and finalized at [facility]. Impression: Probable small layering right pleural effusion.
--- NOTE | ~2023-06-03 | XR_ITS ---
EXAMINATION: XR chest 2V DATE: 06/03/2023 09:33 INDICATION: Epigastric pain and right-sided chest pain TECHNIQUE: frontal and lateral views of the chest were obtained. COMPARISON: Chest radiograph dated 03/14/2023 FINDINGS: Opacities in the right mid to lower lung zone consistent with a small right pleural effusion with ass ociated basilar atelectasis and/or pneumonia. Calcified nodule in the lingula consistent with old gra nulomatous disease. No pulmonary edema, pneumothorax or left-sided pleural effusion. The cardiomedias tinal silhouette is normal. Severe right glenohumeral osteoarthritis. Cholecystectomy clips in right upper quadrant. IMPRESSION: 1. Small right pleural effusion with associated right basilar atelectasis and/or pneumonia. Reviewed, dictated and finalized at location A. IMPRESSION: 1. Small right pleural effusion with associated right basilar atelectasis and/o r pneumonia.
--- NOTE | 2023-06-03 09:03 | ECG_ITS ---
Measurements Intervals [place] Rate: 75 P: 9 UT: 169 QRS: 8 QRSD: 98 T: 4 QT: 350 QTc: 391 Interpretive Statements SINUS RHYTHM WITHIN NORMAL LIMITS COMPARED TO ECG 03/14/2023 18:16:59 NO SIGNIFICANT CHANGES Electronically Signed On 06-03-2023 12:30:57 CDT by Issa Arellano M.D.
[2023-06-03 09:14] LABS: Basophils Percent Auto 0.2 % (0.2-1.2); Eosinophils Percent Auto 0.3 % (0-4.4); Hematocrit 43.5 % (42.0-52.0); Hemoglobin 13.8 g/dL (14.0-18.0); Immature Granulocyte Absolute 0.05 K/mm3 (0.00-0.031); Immature Granulocyte Percent A 0.4 % (0-0.5); Lymphocytes Absolute Auto 0.48 K/mm3 (0.9-3.2); Lymphocytes Percent Auto 3.9 % (18.3-44.2); Mean Corpuscular HGB Conc 31.7 g/dl (32-36); Mean Corpuscular Hemoglobin 29.9 pg (26-34); Mean Corpuscular Volume 94.2 fl (80-100); Mean Platelet Volume 9.7 fl (7.4-10.4); Monocytes Percent Auto 8.3 % (2.6-8.5); Neutrophils Absolute Auto 10.7 K/mm3 (1.3-6.7); Neutrophils Percent Auto 86.9 % (45.5-73.1); Platelet Count Result 214 k/mm3 (150-375); Red Blood Count 4.62 M/mm3 (4.6-6.20); Red Cell Distribution Width 13.2 % (11.5-14.5); White Blood Count 12.4 K/mm3 (4.5-10.0)
[2023-06-03 09:22] LABS: INR 1.2; Prothrombin Time 15.6 Seconds (11.1-14.7)
[2023-06-03 09:23] LABS: Lactic Acid Reflex 1.3 mmol/L (0.7-2.0)
--- NOTE | 2023-06-03 09:24 | ECG_ITS ---
Measurements Intervals [place] Rate: 78 P: 12 VA: 167 QRS: 3 QRSD: 93 T: -4 QT: 341 QTc: 388 Interpretive Statements SINUS RHYTHM WITHIN NORMAL LIMITS COMPARED TO ECG 06/03/2023 09:14:36 NO SIGNIFICANT CHANGES Electronically Signed On 06-03-2023 12:39:06 CDT by Issa Arellano M.D.
[2023-06-03 09:26] LABS: Alanine Aminotransferase 11 U/L (6-50); Albumin Level 3.6 g/dL (3.5-5.1); Alkaline Phosphatase 110 U/L (38-126); Anion Gap 3 mmol/L (4-12); Aspartate Amino Transferase 22 U/L (17-59); Bilirubin,Total 0.9 mg/dL (0.2-1.3); Blood Urea Nitrogen 15 mg/dL (9-20); Calcium 9.4 mg/dL (8.4-10.2); Carbon Dioxide 30 mmol/L (22-30); Chloride 99 mmol/L (98-107); Estimated CRCL calculation 89 ml/min; Estimated Glomerular Filt Rate > 60; Glucose 113 mg/dL (65-110); Lipase 53 U/L (23-300); Potassium 4.5 mmol/L (3.4-5.0); Sodium 132 mmol/L (137-145)
[2023-06-03 09:36] LABS: Troponin I < 0.012 ng/mL (0.000-0.034)
--- NOTE | 2023-06-03 09:43 | ED.GENADULT ---
HPI - General Adult General Chief complaint: Unspecified <Bilyl Epps APRN - Last Filed: 06/03/23 13:35> Stated complaint: Abd, Chest, & back pain <Billy Epps APRN - Last Filed: 06/03/23 13:35> Time Seen by Provider: 06/03/23 09:01 <Billy Epps APRN - Last Filed: 06/03/23 13:35> Source: patient <Billy Epps APRN - Last Filed: 06/03/23 13:35> Mode of arrival: ambulatory <Billy Epps APRN - Last Filed: 06/03/23 13:35> Limitations: no limitations <Billy Epps APRN - Last Filed: 06/03/23 13:35> History of Present Illness HPI narrative: Avinash is a 83-year-old male patient presenting to the ER today with complaints of right-sided chest, shortness of breath, right-sided back, and epigastric pain. He reports that he just saw Dr. Stinson this week and had some tissue cut from the abdomen that was infected from a cholecystectomy that he had back in February. States that 2 days ago he ate some hot sauce and his epigastric pain/chest pain/back pain started at that time. States that he does have a cough that has been ongoing. He denies any fever but does report some body aches. <Billy Epps APRN - Last Filed: 06/03/23 13:35> Related Data Home medications: Home Medications Medication Instructions Recorded Confirmed aspirin 81 mg tablet,delayed 81 mg PO HS 03/08/23 06/03/23 release (Adult Aspirin Regimen) allopurinol 100 mg tablet 100 mg PO DAILY 03/14/23 06/03/23 [id number] 300 mcg-K 60 0.5 tablet PO Q12H 03/14/23 06/03/23 mcg-lycop 600 mcg-lutein 300 mcg tablet (Centrum Silver Men) cholecalciferol (vitamin D3) 125 125 mcg PO HS 03/23/23 06/03/23 mcg (5,000 unit) capsule metoprolol succinate 100 mg 100 mg PO DAILY 03/23/23 06/03/23 tablet,extended release 24 hr <Billy Epps APRN - Last Filed: 06/03/23 13:35> Allergies/adverse reactions: Allergies Allergy/AdvReac Type Severity Reaction Status Date / Time sulfanilamide Allergy Intermediate Rash Verified 05/30/23 08:37 <Billy Epps APRN - Last Filed: 06/03/23 13:35> Review of Systems Review of Systems: Pertinent positives per HPI. Patient denies any fever, chills, rash, headache, visual changes, dizziness, palpitations, nausea, vomiting, diarrhea, constipation, or any urinary issues. <Billy Epps APRN - Last Filed: 06/03/23 13:35> [facility] Past Medical History Medical History: Medical History Acute calculous cholecystitis Arthritis Colon polyp Essential (primary) hypertension Gout Hearing loss RUQ pain Skin cancer Social anxiety disorder <Billy Epps APRN - Last Filed: 06/03/23 13:35> Surgical History Surgical History: Surgical History History of bilateral knee replacement History of colonoscopy with polypectomy History of incision and drainage Incision and drainage of complicated abdominal wound abscess, removal retained gallstones History of laparoscopic cholecystectomy 03/18/23 DHARMESH History of squamous cell carcinoma excision Right leg. <Billy Epps APRN - Last Filed: 06/03/23 13:35> Family History Family History: Family History Father Cerebrovascular accident Family history of lung cancer Tobacco abuse Mother Family history of diabetes mellitus in first degree relative , Onset Age: 64 succumbed to injuries from MVC. Sibling Heart disease Diabetes mellitus Other Hypertension <Billy Epps APRN - Last Filed: 06/03/23 13:35> Social History Social History: Social History Social History: Surrogate medical decision maker: Disha Persaud, spouse. Code status: Full code. Smoking status: Never smo
[2023-06-03 11:03] LABS: Influenza A QL RT-PCR Negative (Negative); Influenza B QL RT-PCR Negative (Negative); RSV RNA, RT-PCR Negative (Negative); SARS-CoV-2 RNA PCR Negative (Negative)
[2023-06-03 12:29] LABS: Troponin I < 0.012 ng/mL (0.000-0.034)
--- NOTE | 2023-06-03 12:33 | PM.IMHP ---
H&P: HPI History of Present Illness Date/Time: 06/03/23 12:33 Chief Complaint: Epigastric Pain Narrative: 83 y/o M presents here with epigastric pain with PMH of cholecystectomy (Feb 2023), HTN, gout, arthritis, and SCC (s/p excision, R Leg). Patient presents here from home for further evaluation of epigastric pain, right sided back pain, right sided chest pain, and shortness of breath. Patient reports acute onset of epigastric pain, right sided chest/back pain shortly after ingesting nachos with hot sauce. Pain has been intermittent, described as achy, and radiation from right side of chest/epigastric region to R shoulder blade/upper back. No nausea, vomiting or diarrhea. No fever or chills. +Body aches. No midsternal chest pain, diaphoresis, jaw pain, palpitations. Patient underwent an ERCP on 03/17/23 and then a laparoscopic cholecystectomy done in 03/18/23 by Milad OQUENDO. Per chart review, operation was difficult due to gallbladder state/size and required a larger incision than usual in order to extract the gallbladder, see operative note. Patient has been following up with General Surgery team, last visit with team on 05/30/23, had a epigastric abdominal wall abscess that required I&D with removal of retained stones on 05/04/2023, and further debridement on 05/29. Patient has been caring for area with cleansing wound daily, applying silver gel, packing wound with gauze, and keeping covered. Initial VS at presentation:98.2? F, HR 76, R 25, 159/88, and 97% on RA. ED workup showed: WBC 12.4, sodium 132, creatinine 0.7 with a GFR of >60, lactic acid 1.3, normal total bili and LFTs, and normal lipase. Viral PCR negative. CTA of the chest/abd/pelvis showed no PE, high attenuation material likely representing small amount of postoperative blood along with a few likely dropped gallstones along the posterior margin of the right hepatic lobe, pneumobilia, suggestion of some high attenuation material within the common bile duct which could represent blood, sludge or choledocholithiasis. Review of Systems Review of Systems: All systems reviewed & are unremarkable except as noted in HPI and below PMFSH Past Medical History Medical History Acute calculous cholecystitis Arthritis Colon polyp Essential (primary) hypertension Gout Hearing loss RUQ pain Skin cancer Social anxiety disorder Surgical History Surgical History History of bilateral knee replacement History of colonoscopy with polypectomy History of incision and drainage Incision and drainage of complicated abdominal wound abscess, removal retained gallstones History of laparoscopic cholecystectomy 03/18/23 DHARMESH History of squamous cell carcinoma excision Right leg. Family History Family History Father Cerebrovascular accident Family history of lung cancer Tobacco abuse Mother Family history of diabetes mellitus in first degree relative , Onset Age: 64 succumbed to injuries from MVC. Sibling Heart disease Diabetes mellitus Other Hypertension Social History Social History Social History: Surrogate medical decision maker: Disha Persaud, spouse. Code status: Full code. Smoking status: Never smoker Second hand tobacco smoke exposure: Yes Alcohol intake: current Drinks per week: 1 Substance use: never Substance use type: does not use Do You Feel Safe in your Home?: Yes Lack of Transportation: No Lack of Food: Never True Current Housing: I Have Housing Concerned About Future Housing: No Difficulty Paying Gas/Electric Bills: No Difficulty Paying for Meds: No Currently Unemployed: No Education: Trade/Vocational Certificate Difficulty w/ Childcare or Family Care: No Living arrangede
[2023-06-03] MEDS: SODIUM CHLORIDE 0.9% IV 1,000 ML 150 ML IV CONT (12:56)
--- NOTE | 2023-06-03 14:08 | ADMGEN ---
This patient, Avinash Persaud, was admitted to [facility] Surg Room 307-01. Patient/family oriented to hospital policies and general routines including ID bracelet, bed and alarms, visiting hours, pain management, procedures, bathroom and other care routines, personal items, smoking policy, room service/diet, and visiting hours. Information on how to activate the Rapid Response Team has been discussed. Patient/Family are encouraged to report perceived risks to care and to ask questions if they do not understand what they are told or what they should do.
[2023-06-03] MEDS: PANTOPRAZOLE SODIUM IV 40 MG VIAL IV PUSH (14:20)
[2023-06-03 15:41] LABS: Troponin I < 0.012 ng/mL (0.000-0.034)
--- NOTE | 2023-06-03 17:25 | PC.NURSE ---
Pt. down to thoracentesis at 1710 via stretcher.
[2023-06-03 18:50] LABS: Appearance Pleural Fluid Cloudy (Clear); Color Pleural Fluid Yellow (Colorless); Pleural fluid source Pleural fluid
[2023-06-03 18:51] LABS: Lymphocytes Pleural Fluid 7 %; Monocytes Pleural Fluid 10 %; Neutrophils Pleural Fluid 83 % (0-25)
--- NOTE | 2023-06-03 19:13 | WPDCN ---
Assessment and Plan Assessment and plan (1) Pleural effusion on right: Code(s): J90 - Pleural effusion, not elsewhere classified Status: Acute Assessment and Plan: Right thoracentesis was performed today. Analysis of the fluid is pending. Fusion has resolved on follow-up CT scan. Right lung base has re-expand. (2) Acute epigastric pain: Code(s): R10.13 - Epigastric pain Status: Acute Assessment and Plan: Resolved. Findings of possible retained common bile duct stone or old blood in the common bile duct showing as of high attenuation material in the common bile duct. MRCP for tomorrow was pending. (3) Abnormal CT of the abdomen: Code(s): R93.5 - Abnormal findings on diagnostic imaging of other abdominal regions, including retroperitoneum Status: Acute Assessment and Plan: Follow-up abnormal CT findings with MRCP tomorrow. (4) Abscess of postoperative wound of abdominal wall: Code(s): T81.49XA - Infection following a procedure, other surgical site, initial encounter Status: Acute Assessment and Plan: Epigastric abdominal wall wound abscess is healing. Continue local wound care. HPI Data of Consult Date/Time: 06/03/23 19:13 Requesting Physician: Ryan Villegas MD Primary Care Provider: Kuldip Joshua MD Consult Narrative Reason for consult: Abdominal pain, possible common bile duct stone Narrative: Avinash Persaud is a 83 year old male who had undergone laparoscopic cholecystectomy on March 18, [address] Stinson. From the operative notes it was very difficult gallbladder surgery due to the acute inflammation of gallbladder. Gallstones were spilled during the removal of gallbladder. On May 03, 2025 for the patient was noted to have an epigastric abdominal wall abscess at the epigastric port site. He underwent incision and drainage of the abscess and some retained gallstone and stone fragments were found which were removed along with drainage of the abscess. Patient has had a wound which is closing by secondary intention since that time. He has been seen Dr. Stinson in the office for follow-up. Earlier today the patient was admitted to the hospital through the emergency room complaining of diffuse abdominal pain. CT scan abdomen pelvis and chest was performed. No pulmonary embolus was seen. Patient did have a pleural effusion on the right with some compressive of atelectasis of the right base of the lung. The was found to have on the CT scan of the abdomen some high density material within the common bile duct which could have represented old blood or possible retained common bile duct stones. Patient's liver enzymes are normal. There was pneumobilia noted but that could be postoperative after laparoscopic cholecystectomy. Earlier today the patient had a thoracentesis of the right pleural effusion. This resolved the pleural effusion and he had expansion of the right lung base. He has no abdominal pain at this time and is sitting in bed getting ready to eat his solid food dinner. MRCP is scheduled for tomorrow. Review of Systems Review of Systems: The remainder of the review of systems to include constitutional, HEENT, cardiovascular, respiratory, GI, , integumentary, musculoskeletal, endocrine, immunologic, hematologic, psychiatric, and neurologic are all negative except for which is mentioned above in the HPI. [facility] Past Medical History Medical History Acute calculous cholecystitis Arthritis Colon polyp Essential (primary) hypertension Gout Hearing loss RUQ pain Skin cancer Social anxiety disorder Surgical History Surgical History History of bilateral knee replacement History of colonoscopy with polypectomy History of incision and drainage Incision and drainage of complicated abdominal wound abscess, rem
[2023-06-03] MEDS: CHOLECALCIFEROL 1,000 UNITS TABLET 5000 UNITS PO (21:28)
[2023-06-03] MEDS: OPTI-GEN TAB 0.5 TABLET PO (21:29)
[2023-06-03] MEDS: ASPIRIN 81 MG ENTERIC TABLET PO (21:29)
[2023-06-04 04:25] VITALS: BP 162/70; PULSE 79; RESP 20; TEMP 36.3; O2SAT 97
[2023-06-04] MEDS: SODIUM CHLOR 3% 15 ML NEB (RESPIRATORY THERAPY) 6 ML INHALATION (04:45)
[2023-06-04 04:48] VITALS: PULSE 89; RESP 16
[2023-06-04 05:37] LABS: Basophils Percent Auto 0.2 % (0.2-1.2); Eosinophils Absolute Auto 0.3 K/mm3 (0-0.3); Eosinophils Percent Auto 3.3 % (0-4.4); Hematocrit 41.1 % (42.0-52.0); Hemoglobin 13.1 g/dL (14.0-18.0); Immature Granulocyte Absolute 0.04 K/mm3 (0.00-0.031); Immature Granulocyte Percent A 0.4 % (0-0.5); Lymphocytes Absolute Auto 0.77 K/mm3 (0.9-3.2); Lymphocytes Percent Auto 7.8 % (18.3-44.2); Mean Corpuscular HGB Conc 31.9 g/dl (32-36); Mean Corpuscular Hemoglobin 29.7 pg (26-34); Mean Corpuscular Volume 93.2 fl (80-100); Mean Platelet Volume 9.9 fl (7.4-10.4); Monocytes Absolute Auto 1.2 K/mm3 (0.1-0.6); Monocytes Percent Auto 11.9 % (2.6-8.5); Neutrophils Absolute Auto 7.5 K/mm3 (1.3-6.7); Neutrophils Percent Auto 76.4 % (45.5-73.1); Platelet Count Result 225 k/mm3 (150-375); Red Blood Count 4.41 M/mm3 (4.6-6.20); Red Cell Distribution Width 13.2 % (11.5-14.5); White Blood Count 9.8 K/mm3 (4.5-10.0)
[2023-06-04 05:49] LABS: Alanine Aminotransferase 10 U/L (6-50); Albumin Level 3.3 g/dL (3.5-5.1); Alkaline Phosphatase 103 U/L (38-126); Anion Gap 3 mmol/L (4-12); Aspartate Amino Transferase 18 U/L (17-59); Bilirubin,Total 0.8 mg/dL (0.2-1.3); Blood Urea Nitrogen 17 mg/dL (9-20); Calcium 9.2 mg/dL (8.4-10.2); Carbon Dioxide 25 mmol/L (22-30); Chloride 103 mmol/L (98-107); Estimated CRCL calculation 89 ml/min; Estimated Glomerular Filt Rate > 60; Glucose 99 mg/dL (65-110); Potassium 3.9 mmol/L (3.4-5.0); Sodium 131 mmol/L (137-145)
[2023-06-04] MEDS: LORazepam INJ (*CRX) 2 MG/ML VIAL 1 MG IV PUSH (06:39)
[2023-06-04] MEDS: PANTOPRAZOLE SODIUM IV 40 MG VIAL IV PUSH (08:26)
[2023-06-04] MEDS: OPTI-GEN TAB 0.5 TABLET PO ×2 (08:26→20:35)
[2023-06-04] MEDS: lisinopriL 20 MG TABLET 40 MG PO (08:26)
[2023-06-04] MEDS: allopurinoL 100 MG TABLET PO (08:26)
[2023-06-04 08:28] VITALS: PULSE 73
[2023-06-04] MEDS: METOPROLOL SUCCINATE EXT REL 100 MG TABCR PO (08:28)
--- NOTE | 2023-06-04 12:15 | WPDPN ---
Progress Note: A&P Assessment and Plan (1) Leukocytosis: Qualifiers: Leukocytosis type: unspecified Qualified Code(s): D72.829 - Elevated white blood cell count, unspecified Code(s): D72.829 - Elevated white blood cell count, unspecified Status: Acute Assessment and Plan: Leukocytosis and now resolved. Continue antibiotics. Abdominal exam is benign. MRCP has been done today to evaluate the material in the common bile duct but the reading is not available yet. Dr. Keys from GI has seen the patient today. (2) Abscess of postoperative wound of abdominal wall: Code(s): T81.49XA - Infection following a procedure, other surgical site, initial encounter Status: Acute Assessment and Plan: Wound is healing without evidence of ongoing infection. Continue local wound care dressings. Subjective Date/time seen: 06/04/23 12:15 Interval history: Patient clinically stable today. No new complaints. Not really having any abdominal pain. MRCP done earlier today but results are still pending. Normal white blood cell count today and no fever. Exam GI: Other: Abdomen is soft and nondistended. Abdomen is nontender. Abdomen is also nondistended. Open incision dressed without redness or any significant purulent drainage. Objective Data Vital Signs Vital Signs: Vital Signs - 24 hr 06/03/23 13:01 06/03/23 14:00 06/03/23 16:02 Temperature 36.8 C Pulse Rate 80 85 Respiratory Rate 22 H 22 H Blood Pressure 140/104 H 171/79 H Pulse Oximetry 97 96 Oxygen Delivery Room Air 06/03/23 20:12 06/03/23 20:00 06/04/23 04:48 Temperature 37.7 C H Pulse Rate 85 89 Respiratory Rate 18 16 Blood Pressure 167/91 H Pulse Oximetry 96 Oxygen Delivery Room Air 06/04/23 04:25 06/04/23 08:28 06/04/23 08:00 Temperature 36.3 C L Pulse Rate 79 73 Respiratory Rate 20 Blood Pressure 162/70 H Pulse Oximetry 97 Oxygen Delivery Room Air Intake/Output Intake/Output: Intake & Output 06/01/23 06/02/23 06/03/23 06/04/23 23:59 23:59 23:59 23:59 Intake Total 590 200 Output Total 1675 650 Balance -1085 -450 Meds/Results Medications: Active Medications Generic Name Dose Route Start Last Admin Trade Name Freq PRN Reason Stop Dose Admin Acetaminophen 500 mg 06/03/23 13:04 Acetaminophen 500 Mg Tablet PO Q6H PRN Mild Pain (1-3) or Fever Allopurinol 100 mg 06/04/23 09:00 06/04/23 08:26 Allopurinol 100 Mg Tablet PO 100 mg DAILY DALTON Administration Aspirin 81 mg 06/03/23 21:00 06/03/23 21:29 Aspirin 81 Mg Enteric Tablet PO 81 mg HS DALTON Administration Lisinopril 40 mg 06/04/23 09:00 06/04/23 08:26 Lisinopril 20 Mg Tablet PO 40 mg DAILY DALTON Administration Metoprolol Succinate 100 mg 06/04/23 09:00 06/04/23 08:28 Metoprolol Succinate Ext Rel 100 Mg Tabcr PO 100 mg DAILY DALTON Administration Morphine Sulfate 2 mg 06/03/23 13:04 Morphine Sulfate (*Crx) 2 Mg/Ml Inj IV PUSH Q4H PRN Pain Rated 4-6 Morphine Sulfate 4 mg 06/03/23 13:04 Morphine Sulfate (*Crx) 4 Mg/Ml Inj IV PUSH Q4H PRN Pain Rated 7-10 Multivitamins/Minerals 0.5 tablet 06/03/23 21:00 06/04/23 08:26 Opti-Gen Tab PO 0.5 tablet Q12H DALTON Administration Naloxone HCl 0.1 mg 06/03/23 13:07 Naloxone Hcl 0.4 Mg/Ml Vial IV PUSH Q5MIN PRN Sedation Ondansetron HCl 4 mg 06/03/23 13:04 Ondansetron Inj 4 Mg/2 Ml Vial IV PUSH Q6H PRN Nausea And Vomiting Pantoprazole Sodium 40 mg 06/03/23 13:10 06/04/23 08:26 Pantoprazole Sodium Iv 40 Mg Vial IV PUSH 40 mg QAM DALTON Administration Sodium Chloride 6 ml 06/04/23 05:00 06/04/23 04:45 Sodium Chlor 3% 15 Ml Neb (Respiratory Therapy) INHALATION 06/06/23 05:01 6 ml DAILY@0500 DALTON Administration Vitamin D 5,000 units 06/03/23 21:00 06/03/23 21:28 Cholecalciferol 1,000 Units Tablet PO 5,000 un
--- NOTE | 2023-06-04 13:02 | WPDGICN ---
Assessment and Plan Assessment and plan (1) Abnormal CT of the abdomen: Code(s): R93.5 - Abnormal findings on diagnostic imaging of other abdominal regions, including retroperitoneum Status: Acute Assessment and Plan: MRCP was ordered to have better assessment of bile duct ERCP removed several stones but then had difficult cholecystectomy with more retained stones that required further surgery after wound infection, surgery even found more stones in site. Wonder if he could have more stone in bile duct, MRCP pending- if any stones in bile duct then ercp on tuesday liver enzymes normal (2) Acute epigastric pain: Code(s): R10.13 - Epigastric pain Status: Acute Assessment and Plan: improved now (3) Leukocytosis: Qualifiers: Leukocytosis type: unspecified Qualified Code(s): D72.829 - Elevated white blood cell count, unspecified Code(s): D72.829 - Elevated white blood cell count, unspecified Status: Acute Assessment and Plan: resolved (4) Abscess of postoperative wound of abdominal wall: Code(s): T81.49XA - Infection following a procedure, other surgical site, initial encounter Status: Acute Assessment and Plan: no more obvious abscess surgery on board (5) Complicated wound infection: Code(s): T14.8XXA - Other injury of unspecified body region, initial encounter; L08.9 - Local infection of the skin and subcutaneous tissue, unspecified Status: Acute (6) Pleural effusion on right: Code(s): J90 - Pleural effusion, not elsewhere classified Status: Acute GI Consult Note Consult date/time: 06/04/23 13:02 Reason for consult: epigastric pain, abnormal bile duct imaging in CT scan HPI: Avinash Persaud is a 83 year old male here with new onset of epigastric pain, right sided back pain and shortness of breath. I performed ERCP on 03/17/23 with multiple stones removed from bile duct after sphincterotomy and using 9-12 mm balloon, occlusion cholangiogram after removing stones without any more filling defects. Then underwent laparoscopic cholecystectomy done in 03/18/23 by Milad OQUENDO, operation was difficult due to gallbladder state/size and required a larger incision than usual in order to extract the gallbladder, then noted to have wound abscess and 05/04/23 underwent another surgery- Patient did have a very deep abscess but it was all above the abdominal wall fascia.? Two sizable stones, 5 mm and 3 mm, were found in the wound and removed.? There was a lot of pigmented gallstone grit in the wound as well.? The infection tunneled to the right and slightly to the left in the deep subcutaneous. Last office visit to surgery on 05/30/23,? further debridement on 05/29 and also treated with antibiotics. Here with upper abdominal pain and rt sided pain, body aches but no fever. ED workup showed: WBC 12.4, sodium 132, creatinine 0.7 with a GFR of >60, lactic acid? 1.3, normal total bili and LFTs, and normal lipase. CTA of the chest/abd/pelvis showed no PE, high attenuation material likely representing small amount of postoperative blood along with a few likely dropped gallstones along the posterior margin of the right hepatic lobe, pneumobilia, suggestion of some high attenuation material within the common bile duct which could represent blood, sludge or choledocholithiasis. Review of Systems Constitutional: Constitutional: Denies chills Eyes: Eyes: Denies blurry vision ENT: Reports Normal hearing present, Denies headache(s) and Denies neck pain Cardiovascular: Cardiovascular: Denies chest pain and Denies dyspnea Respiratory: Respiratory: Denies dyspnea Gastrointestinal: Gastrointestinal: Reports no additional gastrointestinal complaints Genitourinary: Genitourinary: Denies dysuria Musculoskeletal: Musculoskeletal: Denies neck pain Integumentary/Breasts: Skin/Breast: Denies dry skin Neurologic: Reports Normal hearing present, Denies head
--- NOTE | 2023-06-04 13:37 | PM.IMPN ---
Progress Note: A&P Assessment and Plan (1) Acute epigastric pain: Code(s): R10.13 - Epigastric pain Status: Acute (2) Pleural effusion on right: Code(s): J90 - Pleural effusion, not elsewhere classified Status: Acute (3) Essential (primary) hypertension: Code(s): I10 - Essential (primary) hypertension Status: Acute Plan E 83-year-old male presents to the ER with complaint of right-sided chest pain shortness of breath pressure back and epigastric pain. He is status post cholecystectomy from February 2023 still has a surgical abdominal wound that has not healed yet. On a regular basis. Vitals were stable on ED evaluation. EKG with normal sinus rhythm without any acute ST-T changes. WBC 12.4 hemoglobin 13.8 platelet 214 renal function good lactic acid is normal LFTs were within normal limit with 9. Troponin was negative visit to lipase normal at 53 COVID influenza RSV was negative. Chest x-ray showed small right pleural effusion with associated right bibasilar atelectasis versus pneumonia. Subsequently CT chest was performed which showed no PE. There was small pleural effusion with partial collapse of the right lower lobe. L likely representing small amount of postoperative blood along with a few likely dropped gallstones along the posterior margin of the right hepatic pneumobilia associated with recent cholecystectomy. Nonobstructing left nephrolithiasis. Suggestion of some high attenuation material within the common bile duct which could represent blood sludge or choledocholithiasis. MRCP has been ordered. Awaiting interpretation. General surgery as well as GI has been consulted. If stone present will plan for ERCP on Tuesday. Abdominal wall nonhealing ulcer with history of abscess in the postoperative wound in the abdominal wall with some foul smell will get culture. Continue on wound care. Previous wound culture had grown E coli as well as Bilophia wadsworthia. He is status post I&D on 05/04/2023 Right pleural effusion status post thoracentesis yielding 650 mL of cloudy yellow fluid. Fluid analysis pending predominantly neutrophilic DVT prophylaxis SCDs Code status full code Subjective Date/time seen: 06/04/23 13:37 Interval history: feels better no abdominal pain, some discomfort, no fever, chills, no sob. Review of Systems Review of Systems: All systems reviewed & are unremarkable except as noted in HPI and below Exam Narrative: GENERAL: The patient is well developed, not in acute distress HEENT: Nonicteric sclerae, PERRLA, EOMI. Oropharynx clear. Moist mucous membranes. Conjunctivae appear well perfused. CHEST: Chest wall is nontender. HEART: Regular rate and rhythm without murmur, rubs, or gallops LUNGS: Clear to auscultation bilaterally. no respiratory distress ABDOMEN: Soft, positive bowel sounds, non-tender, no organomegaly. SKIN: No rash, no excessive bruising, petechiae, or purpura. NEUROLOGIC: Cranial nerves II-XII intact, alert and oriented x 3, no gross motor deficits EXTREMITIES: no edema, cyanosis or clubbing Objective Data Vital Signs Vital Signs: Vital Signs - 24 hr 06/03/23 14:00 06/03/23 16:02 06/03/23 20:12 Temperature 98.2 F 99.8 F H Pulse Rate 85 85 Respiratory Rate 22 H 18 Blood Pressure 171/79 H 167/91 H Pulse Oximetry 96 96 Oxygen Delivery Room Air 06/03/23 20:00 06/04/23 04:48 06/04/23 04:25 Temperature 97.3 F L Pulse Rate 89 79 Respiratory Rate 16 20 Blood Pressure 162/70 H Pulse Oximetry 97 Oxygen Delivery Room Air 06/04/23 08:28 06/04/23 08:00 Temperature Pulse Rate 73 Respiratory Rate Blood Pressure Pulse Oximetry Oxygen Delivery Room Air Intake/Output Intake/Output: Intake & Output 06/01/23 06/02/23 06/03/23 06/04/23 23:59 23:59 23:59 23:59 Intake Total 590 200 Output Total 1675 650 Balance -1085 -450 Meds/Results Medications: Active Medications Generic Name Dose
[2023-06-04 13:40] VITALS: BP 156/69; PULSE 81; RESP 16; TEMP 36.8; O2SAT 99
[2023-06-04 20:15] VITALS: BP 165/77; PULSE 81; RESP 20; TEMP 37.2; O2SAT 97
[2023-06-04] MEDS: CHOLECALCIFEROL 1,000 UNITS TABLET 5000 UNITS PO (20:35)
[2023-06-04] MEDS: ASPIRIN 81 MG ENTERIC TABLET PO (20:35)
[2023-06-05 04:30] VITALS: BP 164/78; PULSE 77; RESP 18; TEMP 35.9; O2SAT 97
[2023-06-05] MEDS: SODIUM CHLOR 3% 15 ML NEB (RESPIRATORY THERAPY) 6 ML INHALATION (05:41)
[2023-06-05 05:42] VITALS: PULSE 78; RESP 16
[2023-06-05 06:09] LABS: Basophils Percent Auto 0.4 % (0.2-1.2); Eosinophils Absolute Auto 0.5 K/mm3 (0-0.3); Eosinophils Percent Auto 6.5 % (0-4.4); Hematocrit 42.7 % (42.0-52.0); Hemoglobin 13.6 g/dL (14.0-18.0); Immature Granulocyte Absolute 0.03 K/mm3 (0.00-0.031); Immature Granulocyte Percent A 0.4 % (0-0.5); Lymphocytes Absolute Auto 0.88 K/mm3 (0.9-3.2); Lymphocytes Percent Auto 11.5 % (18.3-44.2); Mean Corpuscular HGB Conc 31.9 g/dl (32-36); Mean Corpuscular Hemoglobin 29.6 pg (26-34); Mean Platelet Volume 9.7 fl (7.4-10.4); Monocytes Percent Auto 12.6 % (2.6-8.5); Neutrophils Absolute Auto 5.2 K/mm3 (1.3-6.7); Neutrophils Percent Auto 68.6 % (45.5-73.1); Platelet Count Result 249 k/mm3 (150-375); Red Blood Count 4.59 M/mm3 (4.6-6.20); Red Cell Distribution Width 13.1 % (11.5-14.5); White Blood Count 7.6 K/mm3 (4.5-10.0)
[2023-06-05 06:20] LABS: Alanine Aminotransferase 13 U/L (6-50); Albumin Level 3.3 g/dL (3.5-5.1); Alkaline Phosphatase 91 U/L (38-126); Anion Gap 3 mmol/L (4-12); Aspartate Amino Transferase 28 U/L (17-59); Bilirubin,Total 0.8 mg/dL (0.2-1.3); Blood Urea Nitrogen 17 mg/dL (9-20); Calcium 9.2 mg/dL (8.4-10.2); Carbon Dioxide 28 mmol/L (22-30); Chloride 101 mmol/L (98-107); Estimated CRCL calculation 89 ml/min; Estimated Glomerular Filt Rate > 60; Glucose 105 mg/dL (65-110); Potassium 4.3 mmol/L (3.4-5.0); Sodium 132 mmol/L (137-145)
[2023-06-05 08:00] VITALS: PULSE 78; RESP 16; O2SAT 97
[2023-06-05] MEDS: lisinopriL 20 MG TABLET 40 MG PO (08:20)
[2023-06-05] MEDS: allopurinoL 100 MG TABLET PO (08:20)
[2023-06-05] MEDS: METOPROLOL SUCCINATE EXT REL 100 MG TABCR PO (08:21)
[2023-06-05] MEDS: OPTI-GEN TAB 0.5 TABLET PO ×2 (08:21→20:15)
[2023-06-05] MEDS: PANTOPRAZOLE SODIUM IV 40 MG VIAL IV PUSH (08:30)
--- NOTE | 2023-06-05 09:32 | WPDPN ---
Progress Note: A&P Assessment and Plan (1) Abnormal CT of the abdomen: Code(s): R93.5 - Abnormal findings on diagnostic imaging of other abdominal regions, including retroperitoneum Status: Acute Assessment and Plan: MRCP reading to follow-up on the results of the CT scan are pending. Clinically he is doing well without any evidence of obstruction of the common bile duct. Liver enzymes are normal and white blood cell count is normal. Continue with diet. Continue daily dressing change to periumbilical open wound. No obvious need for general surgery intervention for the CT scan findings at this time. If there is need for ERCP then GI has been consulted and swelling patient. Subjective Date/time seen: 06/05/23 09:32 Interval history: Patient without acute changes. He is tolerating diet. No fever. Liver enzymes and white blood cell count is still normal. MRCP done yesterday reading is still pending. He has been seen by GI. Exam GI: Other: Abdomen is soft and nondistended. Periumbilical wound is clean with granulation tissue at the base. No redness or purulent drainage. Objective Data Vital Signs Vital Signs: Vital Signs - 24 hr 06/04/23 13:40 06/04/23 20:15 06/04/23 20:00 Temperature 36.8 C 37.2 C Pulse Rate 81 81 Respiratory Rate 16 20 Blood Pressure 156/69 H 165/77 H Pulse Oximetry 99 97 Oxygen Delivery Room Air 06/05/23 05:42 06/05/23 04:30 Temperature 35.9 C L Pulse Rate 78 77 Respiratory Rate 16 18 Blood Pressure 164/78 H Pulse Oximetry 97 Oxygen Delivery Intake/Output Intake/Output: Intake & Output 06/02/23 06/03/23 06/04/23 06/05/23 23:59 23:59 23:59 23:59 Intake Total 590 1370 Output Total 1674 1163 700 Balance -1259 -678 -636 Meds/Results Medications: Active Medications Generic Name Dose Route Start Last Admin Trade Name Freq PRN Reason Stop Dose Admin Acetaminophen 500 mg 06/03/23 13:04 Acetaminophen 500 Mg Tablet PO Q6H PRN Mild Pain (1-3) or Fever Allopurinol 100 mg 06/04/23 09:00 06/05/23 08:20 Allopurinol 100 Mg Tablet PO 100 mg DAILY DALTON Administration Aspirin 81 mg 06/03/23 21:00 06/04/23 20:35 Aspirin 81 Mg Enteric Tablet PO 81 mg HS DALTON Administration Lisinopril 40 mg 06/04/23 09:00 06/05/23 08:20 Lisinopril 20 Mg Tablet PO 40 mg DAILY DALTON Administration Metoprolol Succinate 100 mg 06/04/23 09:00 06/05/23 08:21 Metoprolol Succinate Ext Rel 100 Mg Tabcr PO 100 mg DAILY DALTON Administration Morphine Sulfate 2 mg 06/03/23 13:04 Morphine Sulfate (*Crx) 2 Mg/Ml Inj IV PUSH Q4H PRN Pain Rated 4-6 Morphine Sulfate 4 mg 06/03/23 13:04 Morphine Sulfate (*Crx) 4 Mg/Ml Inj IV PUSH Q4H PRN Pain Rated 7-10 Multivitamins/Minerals 0.5 tablet 06/03/23 21:00 06/05/23 08:21 Opti-Gen Tab PO 0.5 tablet Q12H DALTON Administration Naloxone HCl 0.1 mg 06/03/23 13:07 Naloxone Hcl 0.4 Mg/Ml Vial IV PUSH Q5MIN PRN Sedation Ondansetron HCl 4 mg 06/03/23 13:04 Ondansetron Inj 4 Mg/2 Ml Vial IV PUSH Q6H PRN Nausea And Vomiting Pantoprazole Sodium 40 mg 06/03/23 13:10 06/04/23 08:26 Pantoprazole Sodium Iv 40 Mg Vial IV PUSH 40 mg QAM DALTON Administration Sodium Chloride 6 ml 06/04/23 05:00 06/05/23 05:41 Sodium Chlor 3% 15 Ml Neb (Respiratory Therapy) INHALATION 06/06/23 05:01 6 ml DAILY@0500 DALTON Administration Vitamin D 5,000 units 06/03/23 21:00 06/04/23 20:35 Cholecalciferol 1,000 Units Tablet PO 5,000 units HS DALTON Administration Radiology Results: ITS Impressions Chest/Abdomen/Pelvis CTA 06/03/23 10:22 IMPRESSION: 1. No pulmonary embolism. 2. Small right pleural effusion with partial collapse of the right lower lobe. 3. High attenuation material likely representing small amount of postoperative blood along with a few likely dropped gallstones along the posterior margin
--- NOTE | 2023-06-05 13:59 | PM.IMPN ---
Progress Note: A&P Assessment and Plan (1) Acute epigastric pain: Code(s): R10.13 - Epigastric pain Status: Acute (2) Pleural effusion on right: Code(s): J90 - Pleural effusion, not elsewhere classified Status: Acute (3) Essential (primary) hypertension: Code(s): I10 - Essential (primary) hypertension Status: Acute Plan E 83-year-old male presents to the ER with complaint of right-sided chest pain shortness of breath pressure back and epigastric pain. He is status post cholecystectomy from February 2023 still has a surgical abdominal wound that has not healed yet. On a regular basis. Vitals were stable on ED evaluation. EKG with normal sinus rhythm without any acute ST-T changes. WBC 12.4 hemoglobin 13.8 platelet 214 renal function good lactic acid is normal LFTs were within normal limit with 9. Troponin was negative visit to lipase normal at 53 COVID influenza RSV was negative. Chest x-ray showed small right pleural effusion with associated right bibasilar atelectasis versus pneumonia. Subsequently CT chest was performed which showed no PE. There was small pleural effusion with partial collapse of the right lower lobe. L likely representing small amount of postoperative blood along with a few likely dropped gallstones along the posterior margin of the right hepatic pneumobilia associated with recent cholecystectomy. Nonobstructing left nephrolithiasis. Suggestion of some high attenuation material within the common bile duct which could represent blood sludge or choledocholithiasis. MRCP has been ordered. Awaiting interpretation. General surgery as well as GI has been consulted. If stone present will plan for ERCP on Tuesday. MRCP still pending Abdominal wall nonhealing ulcer with history of abscess in the postoperative wound in the abdominal wall with some foul smell will get culture. Continue on wound care. Previous wound culture had grown E coli as well as Bilophia wadsworthia. He is status post I&D on 05/04/2023. Current wound culture with many white blood cells many Gram-positive bacilli. Right pleural effusion status post thoracentesis yielding 650 mL of cloudy yellow fluid. Fluid analysis pending predominantly neutrophilic. Sputum culture discarded chest x-ray in a.m. DVT prophylaxis SCDs Code status full code Subjective Date/time seen: 06/05/23 13:59 Interval history: Feels better. Tolerating clear liquid diet. Labs reviewed. Review of Systems Review of Systems: All systems reviewed & are unremarkable except as noted in HPI and below Exam Narrative: GENERAL: The patient is well developed, not in acute distress HEENT: Nonicteric sclerae, PERRLA, EOMI. Oropharynx clear. Moist mucous membranes. Conjunctivae appear well perfused. CHEST: Chest wall is nontender. HEART: Regular rate and rhythm without murmur, rubs, or gallops LUNGS: Clear to auscultation bilaterally. no respiratory distress ABDOMEN: Soft, positive bowel sounds, non-tender, no organomegaly. Open and epigastric area and up with dressing on which is clean and dry SKIN: No rash, no excessive bruising, petechiae, or purpura. NEUROLOGIC: Cranial nerves II-XII intact, alert and oriented x 3, no gross motor deficits EXTREMITIES: no edema, cyanosis or clubbing Objective Data Vital Signs Vital Signs: Vital Signs - 24 hr 06/04/23 20:15 06/04/23 20:00 06/05/23 05:42 Temperature 99.0 F Pulse Rate 81 78 Respiratory Rate 20 16 Blood Pressure 165/77 H Pulse Oximetry 97 Oxygen Delivery Room Air 06/05/23 04:30 06/05/23 08:00 Temperature 96.7 F L Pulse Rate 77 78 Respiratory Rate 18 16 Blood Pressure 164/78 H Pulse Oximetry 97 97 Oxygen Delivery Room Air Intake/Output Intake/Output: Intake & Output 06/02/23 06/03/23 06/04/23 06/05/23 23:59 23:59 23:59 23:59 Intake Total 746 1370 354 Output Total 8650 0553 467 Balance -1085 -230 -346 Meds/Results Medications: Active Medi
[2023-06-05 14:00] VITALS: BP 156/77; PULSE 77; RESP 20; TEMP 36.6; O2SAT 97
--- NOTE | 2023-06-05 17:26 | WPDGIPROGNO ---
Progress Note: A&P Assessment and Plan (1) Abnormal CT of the abdomen: Code(s): R93.5 - Abnormal findings on diagnostic imaging of other abdominal regions, including retroperitoneum Status: Acute Assessment and Plan: awaiting on MRCP to assess biliary duct, ERCP only if find more stones or filling defect he is asymptomatic and normal liver enzyes (2) Acute epigastric pain: Code(s): R10.13 - Epigastric pain Status: Acute Assessment and Plan: resolved (3) Abscess of postoperative wound of abdominal wall: Code(s): T81.49XA - Infection following a procedure, other surgical site, initial encounter Status: Acute Assessment and Plan: treated (4) Chronic cholecystitis due to cholelithiasis with choledocholithiasis: Code(s): K80.64 - Calculus of gallbladder and bile duct with chronic cholecystitis without obstruction Status: Acute Assessment and Plan: this was treated earlier with ercp with several bile duct stones removed, then had difficult cholecystectomy Subjective Date/time seen: 06/05/23 17:26 Interval history: he is comfortable, no pain and he is eating. Review of Systems Review of Systems: All systems reviewed & are unremarkable except as noted in HPI and below Exam Const: General: no acute distress HENMT: Ears: TM's normal bilaterally Face/Nose/Sinus: Normal nares present Mouth: Yes moist mucous membranes Eyes: General: appearance normal, both eyes and all related structures Sclera: sclerae normal ( No scleral icterus) Pupils: Equal, round and reactive pupils present Neck: Neck: supple Resp: Effort & Inspection: normal respiratory effort Auscultation: clear to auscultation bilaterally Cardio: Rate: regular rate Rhythm: regular rhythm GI: GI Palp: Yes Soft to palpation and No Tenderness to palpation present (GI) Auscultation: normal bowel sounds Other: Abdomen obese but soft. Nontender at this time. wound is clean. No cellulitis Skin: General skin exam: normal color Neuro: Speech: normal speech Motor exam (neuro): 5/5 motor strength present throughout Sensory Exam: normal sensation Extrem: General: normal to inspection Psych: Mental Status: mental status grossly normal Affect: normal affect Objective Data Vital Signs Vital Signs: Vital Signs - 24 hr 06/04/23 20:15 06/04/23 20:00 06/05/23 05:42 Temperature 99.0 F Pulse Rate 81 78 Respiratory Rate 20 16 Blood Pressure 165/77 H Pulse Oximetry 97 Oxygen Delivery Room Air 06/05/23 04:30 06/05/23 08:00 06/05/23 14:00 Temperature 96.7 F L 97.8 F Pulse Rate 77 78 77 Respiratory Rate 18 16 20 Blood Pressure 164/78 H 156/77 H Pulse Oximetry 97 97 97 Oxygen Delivery Room Air Intake/Output Intake/Output: Intake & Output 06/02/23 06/03/23 06/04/23 06/05/23 23:59 23:59 23:59 23:59 Intake Total 590 1370 354 Output Total 1672 5739 700 Banner -1085 -230 -346 Meds/Results Medications: Active Medications Generic Name Dose Route Start Last Admin Trade Name Freq PRN Reason Stop Dose Admin Acetaminophen 500 mg 06/03/23 13:04 Acetaminophen 500 Mg Tablet PO Q6H PRN Mild Pain (1-3) or Fever Allopurinol 100 mg 06/04/23 09:00 06/05/23 08:20 Allopurinol 100 Mg Tablet PO 100 mg DAILY DALTON Administration Aspirin 81 mg 06/03/23 21:00 06/04/23 20:35 Aspirin 81 Mg Enteric Tablet PO 81 mg HS DALTON Administration Lisinopril 40 mg 06/04/23 09:00 06/05/23 08:20 Lisinopril 20 Mg Tablet PO 40 mg DAILY DALTON Administration Metoprolol Succinate 100 mg 06/04/23 09:00 06/05/23 08:21 Metoprolol Succinate Ext Rel 100 Mg Tabcr PO 100 mg DAILY DALTON Administration Morphine Sulfate 2 mg 06/03/23 13:04 Morphine Sulfate (*Crx) 2 Mg/Ml Inj IV PUSH Q4H PRN Pain Rated 4-6 Morphine Sulfate 4 mg 06/03/23 13:04 Morphine Sulfate (*Crx) 4 Mg/Ml Inj IV PUSH Q4H PRN
[2023-06-05] MEDS: ASPIRIN 81 MG ENTERIC TABLET PO (20:15)
[2023-06-05] MEDS: CHOLECALCIFEROL 1,000 UNITS TABLET 5000 UNITS PO (20:15)
[2023-06-05 21:23] VITALS: BP 150/69; PULSE 83; RESP 18; TEMP 36.9; O2SAT 95
[2023-06-06] VITALS (16 sets, daily range): BP systolic 84–169; BP diastolic 45–85; PULSE 62–96; RESP 18–27; TEMP 36.1–36.8; O2SAT 94–100
[2023-06-06] MEDS: SODIUM CHLOR 3% 15 ML NEB (RESPIRATORY THERAPY) 6 ML INHALATION (05:34)
[2023-06-06] MEDS: ACETAMINOPHEN 500 MG TABLET PO (06:14)
[2023-06-06 06:40] LABS: Basophils Percent Auto 0.5 % (0.2-1.2); Eosinophils Absolute Auto 0.4 K/mm3 (0-0.3); Hematocrit 41.1 % (42.0-52.0); Hemoglobin 13.1 g/dL (14.0-18.0); Immature Granulocyte Absolute 0.03 K/mm3 (0.00-0.031); Immature Granulocyte Percent A 0.4 % (0-0.5); Lymphocytes Absolute Auto 0.98 K/mm3 (0.9-3.2); Mean Corpuscular HGB Conc 31.9 g/dl (32-36); Mean Corpuscular Hemoglobin 29.2 pg (26-34); Mean Corpuscular Volume 91.5 fl (80-100); Mean Platelet Volume 9.6 fl (7.4-10.4); Monocytes Percent Auto 12.6 % (2.6-8.5); Neutrophils Absolute Auto 5.2 K/mm3 (1.3-6.7); Neutrophils Percent Auto 68.5 % (45.5-73.1); Platelet Count Result 262 k/mm3 (150-375); Red Blood Count 4.49 M/mm3 (4.6-6.20); Red Cell Distribution Width 13.1 % (11.5-14.5); White Blood Count 7.6 K/mm3 (4.5-10.0)
[2023-06-06 06:49] LABS: Alanine Aminotransferase 19 U/L (6-50); Albumin Level 3.2 g/dL (3.5-5.1); Alkaline Phosphatase 110 U/L (38-126); Anion Gap 4 mmol/L (4-12); Aspartate Amino Transferase 27 U/L (17-59); Bilirubin,Total 0.7 mg/dL (0.2-1.3); Blood Urea Nitrogen 19 mg/dL (9-20); Carbon Dioxide 26 mmol/L (22-30); Chloride 101 mmol/L (98-107); Estimated CRCL calculation 79 ml/min; Estimated Glomerular Filt Rate > 60; Glucose 119 mg/dL (65-110); Magnesium 2.1 mg/dL (1.6-2.3); Potassium 3.8 mmol/L (3.4-5.0); Sodium 131 mmol/L (137-145)
[2023-06-06] MEDS: PANTOPRAZOLE SODIUM IV 40 MG VIAL IV PUSH (09:04)
[2023-06-06] MEDS: METOPROLOL SUCCINATE EXT REL 100 MG TABCR PO (09:04)
[2023-06-06] MEDS: lisinopriL 20 MG TABLET 40 MG PO (09:04)
[2023-06-06] MEDS: LACTATED RINGERS 1,000 ML 150 ML IV CONT (11:14)
--- NOTE | 2023-06-06 11:19 | WPDANESEPPF ---
Anes - Initial Pre Proc Eval Procedure: Operation Date: 06/06/23 16:00 Proposed Procedures p Endoscopic Retro Cholangiopancreatogram - Francisco Javier Ross MD Date/Time: 06/06/23 11:19 Surgeon: Ryan Villegas MD Pre Op Diagnosis: Right Pleral Effusionn/Abnormal CT Abdomen/ s/p Ch Patient Data Age: 83 Gender: M Height: 1.78 m Weight: 112 kg Last Vital Signs Temp 97.1 F L 06/06/23 11:09 Pulse 73 06/06/23 11:09 Resp 18 06/06/23 11:09 BP 128/70 06/06/23 11:09 Pulse Ox 97 06/06/23 11:09 O2 Del Method Room Air 06/06/23 11:09 Allergies Allergy/AdvReac Type Severity Reaction Status Date / Time sulfanilamide Allergy Intermediate Rash Verified 06/06/23 11:07 Home Medications Medication Instructions Recorded Confirmed Type aspirin 81 mg tablet,delayed 81 mg PO HS 03/08/23 06/03/23 History release (Adult Aspirin Regimen) lisinopril 40 mg tablet 40 mg PO DAILY #90 tabs 03/08/23 06/03/23 Rx allopurinol 100 mg tablet 100 mg PO DAILY 03/14/23 06/03/23 History [id number] 300 mcg-K 60 0.5 tablet PO Q12H 03/14/23 06/03/23 History mcg-lycop 600 mcg-lutein 300 mcg tablet (Centrum Silver Men) cholecalciferol (vitamin D3) 125 125 mcg PO HS 03/23/23 06/03/23 History mcg (5,000 unit) capsule metoprolol succinate 100 mg 100 mg PO DAILY 03/23/23 06/03/23 History tablet,extended release 24 hr Laboratory Tests 06/06/23 06:21 WBC 7.6 K/mm3 (4.5-10.0) RBC 4.49 L M/mm3 (4.6-6.20) Hgb 13.1 L g/dL (14.0-18.0) Hct 41.1 L % (42.0-52.0) MCV 91.5 fl (80-100) MCH 29.2 pg (26-34) MCHC 31.9 L g/dl (32-36) RDW 13.1 % (11.5-14.5) Plt Count 262 k/mm3 (150-375) MPV 9.6 fl (7.4-10.4) Immature Gran % (Auto) 0.4 % (0-0.5) Neut % (Auto) 68.5 % (45.5-73.1) Lymph % (Auto) 13.0 L % (18.3-44.2) [place] % (Auto) 12.6 H % (2.6-8.5) Eos % (Auto) 5.0 H % (0-4.4) Baso % (Auto) 0.5 % (0.2-1.2) Lymph # (Auto) 0.98 K/mm3 (0.9-3.2) [place] # (Auto) 1.0 H K/mm3 (0.1-0.6) Eos # (Auto) 0.4 H K/mm3 (0-0.3) Baso # (Auto) 0.0 K/mm3 (0.0-0.1) Abs Immat Gran (auto) 0.03 K/mm3 (0.00-0.031) Absolute Neuts (auto) 5.2 K/mm3 (1.3-6.7) Absolute Nucleated RBC 0.000 K/mm3 (0.0-0.012) Nucleated RBC % 0.0 % (0.0-0.2) Sodium 131 L mmol/L (137-145) Potassium 3.8 mmol/L (3.4-5.0) Chloride 101 mmol/L (98-107) Carbon Dioxide 26 mmol/L (22-30) Anion Gap 4 mmol/L (4-12) BUN 19 mg/dL (9-20) Creatinine 0.80 mg/dL (0.7-1.3) Estim Creat Clear Calc 79 ml/min Estimated GFR > 60 (59 - ) Glucose 119 H mg/dL (65-110) Calcium 9.0 mg/dL (8.4-10.2) Magnesium 2.1 mg/dL (1.6-2.3) Total Bilirubin 0.7 mg/dL (0.2-1.3) AST 27 U/L (17-59) ALT 19 U/L (6-50) Alkaline Phosphatase 110 U/L (38-126) Total Protein 7.0 g/dL (6.3-8.2) Albumin 3.2 L g/dL (3.5-5.1) Patient hx anesthesia problems: none Family hx anesthesia problems: none Results Review: All pre-operative results and documents have been reviewed as part of the pre-operative evaluation. [facility] Past Medical History Medical History Acute calculous cholecystitis Arthritis Colon polyp Essential (primary) hypertension Gout Hearing loss RUQ pain Skin cancer Social anxiety disorder Surgical History Surgical History History of bilateral knee replacement History of colonoscopy with polypectomy History of incision and drainage Incision and drainage of complicated abdominal wound abscess, removal retained gallstones History of laparoscopic cholecystectomy 03/18/23 DHARMESH History of squamous cell carcinoma excision Right leg. Family History Family History Father Cerebrovascular
--- NOTE | 2023-06-06 13:01 | PM.IMPN ---
Progress Note: A&P Assessment and Plan (1) Acute epigastric pain: Code(s): R10.13 - Epigastric pain Status: Acute (2) Pleural effusion on right: Code(s): J90 - Pleural effusion, not elsewhere classified Status: Acute (3) Essential (primary) hypertension: Code(s): I10 - Essential (primary) hypertension Status: Acute Plan E 83-year-old male presents to the ER with complaint of right-sided chest pain shortness of breath pressure back and epigastric pain. He is status post cholecystectomy from February 2023 still has a surgical abdominal wound that has not healed yet. On a regular basis. Vitals were stable on ED evaluation. EKG with normal sinus rhythm without any acute ST-T changes. WBC 12.4 hemoglobin 13.8 platelet 214 renal function good lactic acid is normal LFTs were within normal limit with 9. Troponin was negative visit to lipase normal at 53 COVID influenza RSV was negative. Chest x-ray showed small right pleural effusion with associated right bibasilar atelectasis versus pneumonia. Subsequently CT chest was performed which showed no PE. There was small pleural effusion with partial collapse of the right lower lobe. L likely representing small amount of postoperative blood along with a few likely dropped gallstones along the posterior margin of the right hepatic pneumobilia associated with recent cholecystectomy. Nonobstructing left nephrolithiasis. Suggestion of some high attenuation material within the common bile duct which could represent blood sludge or choledocholithiasis. MRCP has been ordered. Awaiting interpretation. General surgery as well as GI has been consulted. If stone present will plan for ERCP on Tuesday. MRCP came back with choledocholithiasis Status ERCP bile duct was dilated to 11 mm noted filling defects consistent with stones and post cholecystectomy. Noted Feeling defect in the distal CBD consistent with multiple stones and sludge and post cholecystectomy. There were filling defects in the distal CBD consistent with multiple stones and sludge. Balloon Sweeps were completed with the fully inflated balloon. Stone extraction was performed with 9-12 mm balloon catheter and the assistance of a 0.035 inch short wire access for complete clearance of stones. Large amount of sludge and stones removed until clear bile. Abdominal wall nonhealing ulcer with history of abscess in the postoperative wound in the abdominal wall with some foul smell will get culture. Continue on wound care. Previous wound culture had grown E coli as well as Bilophia wadsworthia. He is status post I&D on 05/04/2023. Current wound culture with many white blood cells many Gram-positive bacilli. Right pleural effusion status post thoracentesis yielding 650 mL of cloudy yellow fluid. Fluid analysis pending predominantly neutrophilic. Sputum culture discarded chest x-ray with probable small layering right pleural effusion. Right pleural effusion is new pleural urinalysis not back this suggest with this transudate or exudate. Does have ongoing issue with his right biliary system and pleural effusion related to this. DVT prophylaxis SCDs Code status full code Subjective Date/time seen: 06/06/23 13:01 Interval history: No overnight events. No abdominal pain chest x-ray reviewed Review of Systems Review of Systems: All systems reviewed & are unremarkable except as noted in HPI and below Exam Narrative: GENERAL: The patient is well developed, not in acute distress HEENT: Nonicteric sclerae, PERRLA, EOMI. Oropharynx clear. Moist mucous membranes. Conjunctivae appear well perfused. CHEST: Chest wall is nontender. HEART: Regular rate and rhythm without murmur, rubs, or gallops LUNGS: Clear to auscultation bilaterally. no respiratory distress ABDOMEN: Soft, positive bowel sounds, non-tender, no organomegaly. Open and epigastric area and up with dressing on which is clean and dry SKIN: No rash, no excessiv
[2023-06-06] MEDS: FAMOTIDINE 20 MG TABLET PO (18:59)
[2023-06-06] MEDS: CALCIUM CARBONATE (TUMS) 500 MG (200 MG ELEMENTAL) PO ×2 (19:00→23:59)
[2023-06-06] MEDS: ASPIRIN 81 MG ENTERIC TABLET PO (20:36)
[2023-06-06] MEDS: OPTI-GEN TAB 0.5 TABLET PO (20:36)
[2023-06-06] MEDS: CHOLECALCIFEROL 1,000 UNITS TABLET 5000 UNITS PO (20:36)
[2023-06-06] MEDS: MORPHINE SULFATE (*CRX) 2 MG/ML INJ IV PUSH (20:54)
[2023-06-06 21:32] LABS: Lipase 114 U/L (23-300)
[2023-06-07] VITALS (8 sets, daily range): BP systolic 161–173; BP diastolic 74–83; PULSE 83–95; RESP 16–22; TEMP 36–37.1; O2SAT 93–97
[2023-06-07] MEDS: MORPHINE SULFATE (*CRX) 2 MG/ML INJ IV PUSH ×3 (00:51→08:41)
[2023-06-07 06:27] LABS: Basophils Percent Auto 0.1 % (0.2-1.2); Hematocrit 43.8 % (42.0-52.0); Hemoglobin 13.8 g/dL (14.0-18.0); Immature Granulocyte Absolute 0.05 K/mm3 (0.00-0.031); Immature Granulocyte Percent A 0.4 % (0-0.5); Lymphocytes Absolute Auto 0.55 K/mm3 (0.9-3.2); Lymphocytes Percent Auto 4.5 % (18.3-44.2); Mean Corpuscular HGB Conc 31.5 g/dl (32-36); Mean Corpuscular Hemoglobin 29.2 pg (26-34); Mean Corpuscular Volume 92.6 fl (80-100); Monocytes Absolute Auto 1.1 K/mm3 (0.1-0.6); Neutrophils Absolute Auto 10.6 K/mm3 (1.3-6.7); Platelet Count Result 292 k/mm3 (150-375); Red Blood Count 4.73 M/mm3 (4.6-6.20); Red Cell Distribution Width 12.8 % (11.5-14.5); White Blood Count 12.3 K/mm3 (4.5-10.0)
[2023-06-07 06:46] LABS: Alanine Aminotransferase 274 U/L (6-50); Albumin Level 3.6 g/dL (3.5-5.1); Alkaline Phosphatase 475 U/L (38-126); Anion Gap 5 mmol/L (4-12); Aspartate Amino Transferase 558 U/L (17-59); Bilirubin,Total 1.9 mg/dL (0.2-1.3); Blood Urea Nitrogen 20 mg/dL (9-20); Calcium 9.2 mg/dL (8.4-10.2); Carbon Dioxide 28 mmol/L (22-30); Chloride 100 mmol/L (98-107); Estimated CRCL calculation 89 ml/min; Estimated Glomerular Filt Rate > 60; Glucose 129 mg/dL (65-110); Magnesium 2.2 mg/dL (1.6-2.3); Potassium 4.4 mmol/L (3.4-5.0); Sodium 133 mmol/L (137-145)
[2023-06-07] MEDS: METOPROLOL SUCCINATE EXT REL 100 MG TABCR PO (08:16)
[2023-06-07] MEDS: allopurinoL 100 MG TABLET PO (08:16)
[2023-06-07] MEDS: PANTOPRAZOLE SODIUM IV 40 MG VIAL IV PUSH (08:16)
[2023-06-07] MEDS: lisinopriL 20 MG TABLET 40 MG PO (08:16)
[2023-06-07] MEDS: FAMOTIDINE 20 MG TABLET PO ×2 (08:16→20:52)
--- NOTE | 2023-06-07 13:37 | PM.IMPN ---
Progress Note: A&P Assessment and Plan (1) Acute epigastric pain: Code(s): R10.13 - Epigastric pain Status: Acute (2) Pleural effusion on right: Code(s): J90 - Pleural effusion, not elsewhere classified Status: Acute (3) Essential (primary) hypertension: Code(s): I10 - Essential (primary) hypertension Status: Acute Plan E 83-year-old male presents to the ER with complaint of right-sided chest pain shortness of breath pressure back and epigastric pain. He is status post cholecystectomy from February 2023 still has a surgical abdominal wound that has not healed yet. On a regular basis. Vitals were stable on ED evaluation. EKG with normal sinus rhythm without any acute ST-T changes. WBC 12.4 hemoglobin 13.8 platelet 214 renal function good lactic acid is normal LFTs were within normal limit with 9. Troponin was negative visit to lipase normal at 53 COVID influenza RSV was negative. Chest x-ray showed small right pleural effusion with associated right bibasilar atelectasis versus pneumonia. Subsequently CT chest was performed which showed no PE. There was small pleural effusion with partial collapse of the right lower lobe. L likely representing small amount of postoperative blood along with a few likely dropped gallstones along the posterior margin of the right hepatic pneumobilia associated with recent cholecystectomy. Nonobstructing left nephrolithiasis. Suggestion of some high attenuation material within the common bile duct which could represent blood sludge or choledocholithiasis. MRCP has been ordered. Awaiting interpretation. General surgery as well as GI has been consulted. If stone present will plan for ERCP on Tuesday. MRCP came back with choledocholithiasis Status ERCP bile duct was dilated to 11 mm noted filling defects consistent with stones and post cholecystectomy. Noted Feeling defect in the distal CBD consistent with multiple stones and sludge and post cholecystectomy. There were filling defects in the distal CBD consistent with multiple stones and sludge. Balloon Sweeps were completed with the fully inflated balloon. Stone extraction was performed with 9-12 mm balloon catheter and the assistance of a 0.035 inch short wire access for complete clearance of stones. Large amount of sludge and stones removed until clear bile. Post ERCP acute liver injury lipase was normal. LFTs raised to AST 558 ALT 274 and ALP 475. Will continue to trend. Back down diet to clear liquid. Will check ultrasound continue to trend LFTs hopefully transient elevation. Abdominal wall nonhealing ulcer with history of abscess in the postoperative wound in the abdominal wall with some foul smell will get culture. Continue on wound care. Previous wound culture had grown E coli as well as Bilophia wadsworthia. He is status post I&D on 05/04/2023. Current wound culture with many white blood cells many Gram-positive bacilli. This turned out to be skin darryl Right pleural effusion status post thoracentesis yielding 650 mL of cloudy yellow fluid. Fluid analysis pending predominantly neutrophilic. Sputum culture discarded chest x-ray with probable small layering right pleural effusion. Right pleural effusion is new pleural urinalysis not back to suggest if this is a transudate or exudate. Does have ongoing issue with his right biliary system and could be that the pleural effusion related to this. DVT prophylaxis SCDs Code status full code Subjective Date/time seen: 06/07/23 13:37 Interval history: He started having belly pain after the ERCP yesterday. Feeling little better today but still needing IV pain medication. Labs were reviewed and LFT elevated. No nausea vomiting. Review of Systems Review of Systems: All systems reviewed & are unremarkable except as noted in HPI and below Exam Narrative: GENERAL: The patient is well developed, not in acute distress HEENT: Nonicteric sclerae, PERRLA, EOMI. Orophary
--- NOTE | 2023-06-07 15:23 | WPDGIPROGNO ---
Progress Note: A&P Assessment and Plan (1) Choledocholithiasis: Code(s): K80.50 - Calculus of bile duct without cholangitis or cholecystitis without obstruction Status: Acute Assessment and Plan: ercp yesterday, large amount of debris and stone removed today elevated lft, probably from ercp and manipulation of bile duct liquid diet and continue to monitor lipase in am and trend lft (2) Elevated liver enzymes: Code(s): R74.8 - Abnormal levels of other serum enzymes Status: Acute Assessment and Plan: monitor elevated after ercp (3) Acute epigastric pain: Code(s): R10.13 - Epigastric pain Status: Acute Assessment and Plan: more after ercp (4) Abscess of postoperative wound of abdominal wall: Code(s): T81.49XA - Infection following a procedure, other surgical site, initial encounter Status: Acute Assessment and Plan: treated (5) Abnormal CT of the abdomen: Code(s): R93.5 - Abnormal findings on diagnostic imaging of other abdominal regions, including retroperitoneum Status: Acute (6) Chronic cholecystitis due to cholelithiasis with choledocholithiasis: Code(s): K80.64 - Calculus of gallbladder and bile duct with chronic cholecystitis without obstruction Status: Acute Assessment and Plan: treated earlier this year with ercp with several bile duct stones removed, then had difficult cholecystectomy (7) Pleural effusion on right: Code(s): J90 - Pleural effusion, not elsewhere classified Status: Acute Assessment and Plan: s/p thoracentesis Subjective Date/time seen: 06/07/23 15:23 Interval history: ercp yesterday, previous sphincterotomy was extended and removed large amount of debris/sludge with stones yesterday had pain after eating Review of Systems Review of Systems: All systems reviewed & are unremarkable except as noted in HPI and below Exam Const: General: no acute distress HENMT: Ears: TM's normal bilaterally Face/Nose/Sinus: Normal nares present Mouth: Yes moist mucous membranes Eyes: General: appearance normal, both eyes and all related structures Sclera: sclerae normal ( No scleral icterus) Pupils: Equal, round and reactive pupils present Neck: Neck: supple Resp: Effort & Inspection: normal respiratory effort Auscultation: clear to auscultation bilaterally Cardio: Rate: regular rate Rhythm: regular rhythm GI: GI Palp: Yes Soft to palpation and No Tenderness to palpation present (GI) Auscultation: normal bowel sounds Other: Abdomen obese but soft. Nontender at this time. wound is clean. No cellulitis Skin: General skin exam: normal color Neuro: Speech: normal speech Motor exam (neuro): 5/5 motor strength present throughout Sensory Exam: normal sensation Extrem: General: normal to inspection Psych: Mental Status: mental status grossly normal Affect: normal affect Objective Data Vital Signs Vital Signs: Vital Signs - 24 hr 06/06/23 20:00 06/06/23 20:05 06/07/23 00:55 Temperature 97.5 F L 96.8 F L Pulse Rate 77 83 Respiratory Rate 20 20 Blood Pressure 169/83 H 173/83 H Pulse Oximetry 97 95 Oxygen Delivery Room Air Fraction of Inspired Oxygen 06/07/23 04:55 06/07/23 08:16 06/07/23 09:07 Temperature 97.1 F L Pulse Rate 85 88 Respiratory Rate 20 Blood Pressure 168/82 H Pulse Oximetry 96 96 Oxygen Delivery Room Air Fraction of Inspired Oxygen 21 06/07/23 08:15 06/07/23 14:00 Temperature 98.5 F Pulse Rate 95 Respiratory Rate 22 H Blood Pressure 161/75 H Pulse Oximetry 96 Oxygen Delivery Room Air Fraction of Inspired Oxygen Intake/Output Intake/Output: Intake & Output 06/04/23 06/05/23 06/06/23 06/07/23 23:59 23:59 23:59 23:59 Intake Total 1370 1394 1340 560 Output Total 1600 1850 2050 850 Balance -230 -456 -710 -290 Meds/Results Medications: Active Medications Generic Name Dose
[2023-06-07] MEDS: CALCIUM CARBONATE (TUMS) 500 MG (200 MG ELEMENTAL) PO (18:02)
[2023-06-07] MEDS: ASPIRIN 81 MG ENTERIC TABLET PO (20:52)
[2023-06-07] MEDS: CHOLECALCIFEROL 1,000 UNITS TABLET 5000 UNITS PO (20:52)
[2023-06-07] MEDS: OPTI-GEN TAB 0.5 TABLET PO (20:52)
[2023-06-08] VITALS (7 sets, daily range): BP systolic 100–136; BP diastolic 48–60; PULSE 77–93; RESP 16–24; TEMP 36.8–37.2; O2SAT 95–100
[2023-06-08 06:04] LABS: Basophils Percent Auto 0.2 % (0.2-1.2); Eosinophils Percent Auto 0.1 % (0-4.4); Hematocrit 38.7 % (42.0-52.0); Hemoglobin 12.7 g/dL (14.0-18.0); Immature Granulocyte Absolute 0.14 K/mm3 (0.00-0.031); Immature Granulocyte Percent A 0.8 % (0-0.5); Lymphocytes Absolute Auto 0.58 K/mm3 (0.9-3.2); Lymphocytes Percent Auto 3.5 % (18.3-44.2); Mean Corpuscular HGB Conc 32.8 g/dl (32-36); Mean Corpuscular Hemoglobin 29.7 pg (26-34); Mean Corpuscular Volume 90.6 fl (80-100); Mean Platelet Volume 9.8 fl (7.4-10.4); Monocytes Absolute Auto 1.7 K/mm3 (0.1-0.6); Neutrophils Absolute Auto 14.3 K/mm3 (1.3-6.7); Neutrophils Percent Auto 85.4 % (45.5-73.1); Platelet Count Result 290 k/mm3 (150-375); Red Blood Count 4.27 M/mm3 (4.6-6.20); Red Cell Distribution Width 13.1 % (11.5-14.5); White Blood Count 16.8 K/mm3 (4.5-10.0)
[2023-06-08 06:22] LABS: Alanine Aminotransferase 233 U/L (6-50); Albumin Level 3.1 g/dL (3.5-5.1); Alkaline Phosphatase 509 U/L (38-126); Anion Gap 6 mmol/L (4-12); Aspartate Amino Transferase 256 U/L (17-59); Bilirubin,Total 3.5 mg/dL (0.2-1.3); Blood Urea Nitrogen 18 mg/dL (9-20); Calcium 8.6 mg/dL (8.4-10.2); Carbon Dioxide 25 mmol/L (22-30); Chloride 97 mmol/L (98-107); Estimated CRCL calculation 79 ml/min; Estimated Glomerular Filt Rate > 60; Glucose 96 mg/dL (65-110); Lipase 63 U/L (23-300); Magnesium 1.8 mg/dL (1.6-2.3); Sodium 128 mmol/L (137-145)
[2023-06-08] MEDS: FAMOTIDINE 20 MG TABLET PO ×2 (09:39→21:08)
[2023-06-08] MEDS: OPTI-GEN TAB 0.5 TABLET PO ×2 (09:39→21:07)
[2023-06-08] MEDS: allopurinoL 100 MG TABLET PO (09:40)
[2023-06-08] MEDS: PANTOPRAZOLE SODIUM IV 40 MG VIAL IV PUSH (09:40)
[2023-06-08] MEDS: METOPROLOL SUCCINATE EXT REL 100 MG TABCR PO (11:08)
[2023-06-08 13:18] LABS: Glucose Pleural Fluid 71 mg/dL; LDH Pleural Fluid 2669 U/L; Total Protein Pleural Fluid 4.1 g/dL
[2023-06-08 14:58] LABS: Amylase, Pleural Fluid 19 U/L
--- NOTE | 2023-06-08 15:59 | WPDGIPROGNO ---
Progress Note: A&P Assessment and Plan (1) Choledocholithiasis: Code(s): K80.50 - Calculus of bile duct without cholangitis or cholecystitis without obstruction Status: Acute Assessment and Plan: ercp with large amount of debris and stone removed no pancreatitis, elevated liver enzymes probably from ercp and manipulation of bile duct, expect that will come down again- ultrasound revealed normal bile duct size trend lft advance diet (2) Elevated liver enzymes: Code(s): R74.8 - Abnormal levels of other serum enzymes Status: Acute Assessment and Plan: trend lft (3) Acute epigastric pain: Code(s): R10.13 - Epigastric pain Status: Acute Assessment and Plan: resolved now (4) Abscess of postoperative wound of abdominal wall: Code(s): T81.49XA - Infection following a procedure, other surgical site, initial encounter Status: Acute Assessment and Plan: treated (5) Abnormal CT of the abdomen: Code(s): R93.5 - Abnormal findings on diagnostic imaging of other abdominal regions, including retroperitoneum Status: Acute (6) Chronic cholecystitis due to cholelithiasis with choledocholithiasis: Code(s): K80.64 - Calculus of gallbladder and bile duct with chronic cholecystitis without obstruction Status: Acute Assessment and Plan: treated earlier this year with ercp with several bile duct stones removed, then had difficult cholecystectomy (7) Pleural effusion on right: Code(s): J90 - Pleural effusion, not elsewhere classified Status: Acute Assessment and Plan: s/p thoracentesis Subjective Date/time seen: 06/08/23 15:59 Interval history: feeling better today, he would like to advance diet, he had BM after several days Review of Systems Review of Systems: All systems reviewed & are unremarkable except as noted in HPI and below Exam Const: General: no acute distress HENMT: Ears: TM's normal bilaterally Face/Nose/Sinus: Normal nares present Mouth: Yes moist mucous membranes Eyes: General: appearance normal, both eyes and all related structures Sclera: sclerae normal ( No scleral icterus) Pupils: Equal, round and reactive pupils present Neck: Neck: supple Resp: Effort & Inspection: normal respiratory effort Auscultation: clear to auscultation bilaterally Cardio: Rate: regular rate Rhythm: regular rhythm GI: GI Palp: Yes Soft to palpation and No Tenderness to palpation present (GI) Auscultation: normal bowel sounds Other: Abdomen obese but soft. Nontender at this time. wound is clean. No cellulitis Skin: General skin exam: normal color Neuro: Speech: normal speech Motor exam (neuro): 5/5 motor strength present throughout Sensory Exam: normal sensation Extrem: General: normal to inspection Psych: Mental Status: mental status grossly normal Affect: normal affect Objective Data Vital Signs Vital Signs: Vital Signs - 24 hr 06/07/23 20:00 06/07/23 21:15 06/08/23 00:05 Temperature 98.8 F 98.9 F Pulse Rate 92 87 Respiratory Rate 16 20 Blood Pressure 172/74 H 131/60 Pulse Oximetry 96 93 95 Oxygen Delivery Room Air 06/08/23 05:25 06/08/23 09:40 06/08/23 09:40 Temperature 98.2 F Pulse Rate 92 93 Respiratory Rate 24 H Blood Pressure 127/59 L 108/48 L Pulse Oximetry 95 97 Oxygen Delivery Room Air 06/08/23 11:08 06/08/23 14:00 Temperature 98.6 F Pulse Rate 88 86 Respiratory Rate 22 H Blood Pressure 136/53 L Pulse Oximetry 100 Oxygen Delivery Intake/Output Intake/Output: Intake & Output 06/05/23 06/06/23 06/07/23 06/08/23 23:59 23:59 23:59 23:59 Intake Total 1394 1340 2552 600 Output Total 1850 2050 1310 370 Balance -456 710 1242 230 Meds/Results Medications: Active Medications Generic Name Dose Route Start Last Admin Trade Name Freq PRN Reason Stop Dose Admin Acetaminophen 500 mg 06/03/23 13:04 06/06/23 06:14
--- NOTE | 2023-06-08 18:25 | PM.IMPN ---
Progress Note: A&P Assessment and Plan (1) Choledocholithiasis: Code(s): K80.50 - Calculus of bile duct without cholangitis or cholecystitis without obstruction Status: Acute (2) Acute epigastric pain: Code(s): R10.13 - Epigastric pain Status: Acute (3) Pleural effusion on right: Code(s): J90 - Pleural effusion, not elsewhere classified Status: Acute (4) Elevated liver enzymes: Code(s): R74.8 - Abnormal levels of other serum enzymes Status: Acute (5) Abscess of postoperative wound of abdominal wall: Code(s): T81.49XA - Infection following a procedure, other surgical site, initial encounter Status: Acute (6) Essential (primary) hypertension: Code(s): I10 - Essential (primary) hypertension Status: Acute (7) Hyponatremia: Code(s): E87.1 - Hypo-osmolality and hyponatremia Status: Acute Plan E 83-year-old male presents to the ER with complaint of right-sided chest pain shortness of breath pressure back and epigastric pain. He is status post cholecystectomy from February 2023 still has a surgical abdominal wound that has not healed yet. On a regular basis. Vitals were stable on ED evaluation. EKG with normal sinus rhythm without any acute ST-T changes. WBC 12.4 hemoglobin 13.8 platelet 214 renal function good lactic acid is normal LFTs were within normal limit with 9. Troponin was negative visit to lipase normal at 53 COVID influenza RSV was negative. Chest x-ray showed small right pleural effusion with associated right bibasilar atelectasis versus pneumonia. Subsequently CT chest was performed which showed no PE. There was small pleural effusion with partial collapse of the right lower lobe. L likely representing small amount of postoperative blood along with a few likely dropped gallstones along the posterior margin of the right hepatic pneumobilia associated with recent cholecystectomy. Nonobstructing left nephrolithiasis. Suggestion of some high attenuation material within the common bile duct which could represent blood sludge or choledocholithiasis. MRCP has been ordered. Awaiting interpretation. General surgery as well as GI has been consulted. If stone present will plan for ERCP on Tuesday. MRCP came back with choledocholithiasis Status ERCP bile duct was dilated to 11 mm noted filling defects consistent with stones and post cholecystectomy. Noted Feeling defect in the distal CBD consistent with multiple stones and sludge and post cholecystectomy. There were filling defects in the distal CBD consistent with multiple stones and sludge. Balloon Sweeps were completed with the fully inflated balloon. Stone extraction was performed with 9-12 mm balloon catheter and the assistance of a 0.035 inch short wire access for complete clearance of stones. Large amount of sludge and stones removed until clear bile. Post ERCP acute liver injury lipase was normal. LFTs raised to AST 558 ALT 274 and ALP 475. Will continue to trend. Back down diet to clear liquid. Will check ultrasound continue to trend LFTs hopefully transient elevation. Abdominal wall nonhealing ulcer with history of abscess in the postoperative wound in the abdominal wall with some foul smell will get culture. Continue on wound care. Previous wound culture had grown E coli as well as Bilophia wadsworthia. He is status post I&D on 05/04/2023. Current wound culture with many white blood cells many Gram-positive bacilli. This turned out to be skin darryl Right pleural effusion status post thoracentesis yielding 650 mL of cloudy yellow fluid. Fluid analysis pending predominantly neutrophilic. Sputum culture discarded chest x-ray with probable small layering right pleural effusion. Right pleural effusion is new pleural urinalysis not back to suggest if this is a transudate or exudate. Does have ongoing issue with his right biliary system and could be that the pleural effusion related to this. [place]
[2023-06-08] MEDS: ACETAMINOPHEN 500 MG TABLET PO (18:50)
[2023-06-08] MEDS: CHOLECALCIFEROL 1,000 UNITS TABLET 5000 UNITS PO (21:07)
[2023-06-08] MEDS: ASPIRIN 81 MG ENTERIC TABLET PO (21:09)
[2023-06-09 03:06] VITALS: O2SAT 97
[2023-06-09 06:00] VITALS: BP 141/69; PULSE 84; RESP 16; TEMP 37.1; O2SAT 96
[2023-06-09 06:50] LABS: Basophils Percent Auto 0.3 % (0.2-1.2); Eosinophils Absolute Auto 0.2 K/mm3 (0-0.3); Eosinophils Percent Auto 2.2 % (0-4.4); Hematocrit 39.1 % (42.0-52.0); Hemoglobin 12.8 g/dL (14.0-18.0); Immature Granulocyte Absolute 0.09 K/mm3 (0.00-0.031); Immature Granulocyte Percent A 0.8 % (0-0.5); Lymphocytes Absolute Auto 0.61 K/mm3 (0.9-3.2); Lymphocytes Percent Auto 5.6 % (18.3-44.2); Mean Corpuscular HGB Conc 32.7 g/dl (32-36); Mean Corpuscular Hemoglobin 29.6 pg (26-34); Mean Corpuscular Volume 90.5 fl (80-100); Mean Platelet Volume 9.6 fl (7.4-10.4); Neutrophils Percent Auto 82.1 % (45.5-73.1); Platelet Count Result 268 k/mm3 (150-375); Red Blood Count 4.32 M/mm3 (4.6-6.20); Red Cell Distribution Width 13.2 % (11.5-14.5)
[2023-06-09 07:01] LABS: Alanine Aminotransferase 135 U/L (6-50); Albumin Level 3.1 g/dL (3.5-5.1); Alkaline Phosphatase 416 U/L (38-126); Anion Gap 1 mmol/L (4-12); Aspartate Amino Transferase 68 U/L (17-59); Bilirubin,Total 1.4 mg/dL (0.2-1.3); Blood Urea Nitrogen 21 mg/dL (9-20); Calcium 8.7 mg/dL (8.4-10.2); Carbon Dioxide 29 mmol/L (22-30); Chloride 97 mmol/L (98-107); Estimated CRCL calculation 79 ml/min; Estimated Glomerular Filt Rate > 60; Glucose 99 mg/dL (65-110); Potassium 3.7 mmol/L (3.4-5.0); Sodium 127 mmol/L (137-145)
[2023-06-09 08:07] VITALS: PULSE 86
[2023-06-09] MEDS: ACETAMINOPHEN 500 MG TABLET PO (08:07)
[2023-06-09] MEDS: METOPROLOL SUCCINATE EXT REL 100 MG TABCR PO (08:07)
[2023-06-09] MEDS: FAMOTIDINE 20 MG TABLET PO (08:08)
[2023-06-09] MEDS: allopurinoL 100 MG TABLET PO (08:08)
[2023-06-09] MEDS: OPTI-GEN TAB 0.5 TABLET PO (08:08)
[2023-06-09] MEDS: PANTOPRAZOLE SODIUM IV 40 MG VIAL IV PUSH (08:09)
[2023-06-09 10:15] LABS: Albumin Pleural Fluid 1.7 g/dL
[2023-06-09 10:38] VITALS: BP 153/79; PULSE 86; O2SAT 95
--- NOTE | 2023-06-09 13:16 | WPDGIPROGNO ---
Progress Note: A&P Assessment and Plan (1) Choledocholithiasis: Code(s): K80.50 - Calculus of bile duct without cholangitis or cholecystitis without obstruction Status: Acute Assessment and Plan: ercp with large amount of debris and stone removed no pancreatitis, elevated liver enzymes probably from ercp and manipulation of bile duct, already trending down and now he is asymptomatic- ultrasound revealed normal bile duct size tolerating low fat diet no objections to discharge and he can follow-up 3-4 weeks with repeat liver enzymes (2) Elevated liver enzymes: Code(s): R74.8 - Abnormal levels of other serum enzymes Status: Acute Assessment and Plan: downtrending (3) Acute epigastric pain: Code(s): R10.13 - Epigastric pain Status: Acute Assessment and Plan: resolved (4) Abscess of postoperative wound of abdominal wall: Code(s): T81.49XA - Infection following a procedure, other surgical site, initial encounter Status: Acute Assessment and Plan: treated (5) Chronic cholecystitis due to cholelithiasis with choledocholithiasis: Code(s): K80.64 - Calculus of gallbladder and bile duct with chronic cholecystitis without obstruction Status: Acute Assessment and Plan: treated earlier this year with ercp with several bile duct stones removed, then had difficult cholecystectomy (6) Pleural effusion on right: Code(s): J90 - Pleural effusion, not elsewhere classified Status: Acute Assessment and Plan: s/p thoracentesis Subjective Date/time seen: 06/09/23 13:16 Interval history: eating without any pain, no nausea, he is back to his baseline. Review of Systems Review of Systems: All systems reviewed & are unremarkable except as noted in HPI and below Exam Const: General: no acute distress HENMT: Ears: TM's normal bilaterally Face/Nose/Sinus: Normal nares present Mouth: Yes moist mucous membranes Eyes: General: appearance normal, both eyes and all related structures Sclera: sclerae normal ( No scleral icterus) Pupils: Equal, round and reactive pupils present Neck: Neck: supple Resp: Effort & Inspection: normal respiratory effort Auscultation: clear to auscultation bilaterally Cardio: Rate: regular rate Rhythm: regular rhythm GI: GI Palp: Yes Soft to palpation and No Tenderness to palpation present (GI) Auscultation: normal bowel sounds Other: Abdomen obese but soft. Nontender at this time. wound is clean. No cellulitis Skin: General skin exam: normal color Neuro: Speech: normal speech Motor exam (neuro): 5/5 motor strength present throughout Sensory Exam: normal sensation Extrem: General: normal to inspection Psych: Mental Status: mental status grossly normal Affect: normal affect Objective Data Vital Signs Vital Signs: Vital Signs - 24 hr 06/08/23 14:00 06/08/23 21:29 06/08/23 20:00 Temperature 98.6 F 98.3 F Pulse Rate 86 77 77 Respiratory Rate 22 H 16 16 Blood Pressure 136/53 L 100/54 L Pulse Oximetry 100 95 95 Oxygen Delivery Room Air Oxygen Flow Rate Fraction of Inspired Oxygen 21 06/09/23 03:06 06/09/23 06:00 06/09/23 08:07 Temperature 98.8 F Pulse Rate 84 86 Respiratory Rate 16 Blood Pressure 141/69 H Pulse Oximetry 97 96 Oxygen Delivery Nasal Cannula Oxygen Flow Rate 2 Fraction of Inspired Oxygen 06/09/23 08:20 06/09/23 08:51 06/09/23 08:05 Temperature Pulse Rate Respiratory Rate Blood Pressure Pulse Oximetry Oxygen Delivery Room Air Room Air Room Air Oxygen Flow Rate Fraction of Inspired Oxygen 06/09/23 10:38 Temperature Pulse Rate 86 Respiratory Rate Blood Pressure 153/79 H Pulse Oximetry 95 Oxygen Delivery Oxygen Flow Rate Fraction of Inspired Oxygen Intake/Output Intake/Output: Intake & Output 06/06/23 06/07/23 06/08/23 06/09/23 23:59 23:59 23:59 23:59 Intake Total 1340 2
[2023-06-09 14:00] VITALS: BP 131/59; PULSE 71; RESP 17; TEMP 36.7; O2SAT 100
--- NOTE | 2023-06-09 16:48 | PM.DS ---
DS: Admitting Diagnosis Discharge Date 06/09/23 Admitting Diagnosis Epigastric Pain DS: Discharge Diagnosis Discharge Diagnosis (1) Choledocholithiasis: Code(s): K80.50 - Calculus of bile duct without cholangitis or cholecystitis without obstruction Status: Acute (2) Acute epigastric pain: Code(s): R10.13 - Epigastric pain Status: Acute (3) Pleural effusion on right: Code(s): J90 - Pleural effusion, not elsewhere classified Status: Acute (4) Elevated liver enzymes: Code(s): R74.8 - Abnormal levels of other serum enzymes Status: Acute (5) Abscess of postoperative wound of abdominal wall: Code(s): T81.49XA - Infection following a procedure, other surgical site, initial encounter Status: Acute (6) Essential (primary) hypertension: Code(s): I10 - Essential (primary) hypertension Status: Acute (7) Hyponatremia: Code(s): E87.1 - Hypo-osmolality and hyponatremia Status: Acute DS: Summary Hospital Course Reason for hospitalization: 83yo malw here for epigastric pain. Please see H&P for details. Hospital Course: Patient presented to the ER with complaint epigastric pain. He is status post cholecystectomy from February 2023 and still has a surgical abdominal wound that has not healed yet. Vitals were stable on ED evaluation. EKG with normal sinus rhythm without any acute ST-T changes. LFTs were within normal limit. Troponin were negative. Lipase normal. COVID, influenza and RSV was negative. Chest x-ray showed small right pleural effusion with associated right bibasilar atelectasis versus pneumonia. Subsequently CT chest was performed which showed no PE. There was small pleural effusion with partial collapse of the right lower lobe. Likely small amount of postoperative blood along with a few likely dropped gallstones along the posterior margin of the Liver. Pneumobilia noted. Nonobstructing left nephrolithiasis noted. Suggestion of some high attenuation material within the common bile duct which could represent blood, sludge or choledocholithiasis. General surgery and GI consulted. MRCP showing choledocholithiasis. ERCP performed 06/05: bile duct was dilated to 11 mm with noted filling defects consistent with stones and post cholecystectomy. Noted filling defect in the distal CBD consistent with multiple stones and sludge. Balloon sweeps were completed with the fully inflated balloon. Stone extraction was performed with 9-12 mm balloon catheter and the assistance of a 0.035 inch short wire access for complete clearance of stones. Large amount of sludge and stones removed until clear bile. Post ERCP acute liver injury with elevated levels. Lipase was normal. LFTs raised to AST 558, ALT 274, TB 3.5 and ALP 475. Clear liquid diet started. Repeat ultrasound showing small volume of ascites in the GB fossa and right pleural effusion. LFTs began to trend down. Diet advanced to low fat. Abd pain resolved. Abdominal wall nonhealing ulcer with history of abscess in the postoperative wound in the abdominal wall with some foul smell. Wound culture was negative. Sputum culture negative. Right pleural effusion noted and underwent thoracentesis yielding 650 mL of cloudy yellow fluid. Pleural fluid cultures are negative. Pleural studies c/w exudative effusion with LDH 2669, Pleural TP4.1 [address]/Serum TP >0.5. Probably related to the complicated cholecystectomy. Sodium has dropped to 127 felt related to above. He does have a chronic mild hyponatremia noted. White counts trending down. Clinically does look much better. He is requesting discharge. GI felt okay for discharge. He is up ambulating to the BR with a walker. He overall did well and was able to be discharged home on 06/09/23 Status at Discharge Cognitive/behavioral status at discharge: stable Time Spent with Patient Time attestation: Total time spent providing and/or coordinating dis
--- NOTE | 2023-07-06 10:05 | PC.NURSE ---
Fungal cx is negative. Dr. Missy mercedes.
== END 2023-06-09 18:15 | disposition home or self-care (01) | DRG 445 ==
LOC: ANHED 12:37 → ANH3MEDSUR 13:20
PROVIDERS: Internal Medicine; Internal Medicine Gastroenterology; Physician Assistant; Student in an Organized Health Care Education/Training Program; Admitting Provider Hospitalist; Emergency Provider Nurse Practitioner Family; PCP Family Medicine; Visit Provider Internal Medicine
PROC: 0FC98ZZ Extirpation of Matter from Common Bile Duct, Via Natural or Artificial Opening Endoscopic (ICD-10-PCS; CPT 43260; principal; 2023-06-06 16:00)
DX: K80.50 Calculus of bile duct without cholangitis or cholecystitis without obstruction (principal); E87.1 Hypo-osmolality and hyponatremia; J90 Pleural effusion, not elsewhere classified; T81.49XA Infection following a procedure, other surgical site, initial encounter; L02.211 Cutaneous abscess of abdominal wall; R74.8 Abnormal levels of other serum enzymes; I10 Essential (primary) hypertension; Z20.822 Contact with and (suspected) exposure to COVID-19; M19.90 Unspecified osteoarthritis, unspecified site; F41.8 Other specified anxiety disorders; K80.64 Calculus of gallbladder and bile duct with chronic cholecystitis without obstruction; D72.829 Elevated white blood cell count, unspecified; Z96.653 Presence of artificial knee joint, bilateral; Z85.828 Personal history of other malignant neoplasm of skin; Z90.49 Acquired absence of other specified parts of digestive tract; E66.9 Obesity, unspecified; Z68.35 Body mass index [BMI] 35.0-35.9, adult; Z79.82 Long term (current) use of aspirin
CPT/HCPCS: 32555; 36415; 71045; 71046; 71275; 74018; 74177; 74183; 74329; 76376; 76705; 80053; 82042; 82150; 82945; 83605; 83615; 83690; 83735; 83986; 84157; 84311; 84478; 84484; 85025; 85610; 85730; 87015; 87070; 87075; 87102; 87116; 87205; 87206; 87637; 88108; 88184; 88305; 89051; 93005; 94640; 97161; 97165; 99285; A9270; A9577; C9113; J0330; J1100; J2060; J2270; J2405; J2704; J7030; J7120; Q9966; Q9967

== ENCOUNTER 2023-06-29 07:49 | Outpatient (CLI) | payer MEDICARE, OTHER, SELFPAY ==
[2023-06-29 08:11] LABS: Basophils Absolute Auto 0.1 K/mm3 (0.0-0.1); Basophils Percent Auto 0.7 % (0.2-1.2); Eosinophils Absolute Auto 0.2 K/mm3 (0-0.3); Eosinophils Percent Auto 3.2 % (0-4.4); Hematocrit 43.3 % (42.0-52.0); Hemoglobin 13.4 g/dL (14.0-18.0); Immature Granulocyte Absolute 0.03 K/mm3 (0.00-0.031); Immature Granulocyte Percent A 0.4 % (0-0.5); Mean Corpuscular HGB Conc 30.9 g/dl (32-36); Mean Corpuscular Hemoglobin 28.9 pg (26-34); Mean Corpuscular Volume 93.3 fl (80-100); Mean Platelet Volume 9.8 fl (7.4-10.4); Monocytes Absolute Auto 0.5 K/mm3 (0.1-0.6); Neutrophils Absolute Auto 4.8 K/mm3 (1.3-6.7); Neutrophils Percent Auto 67.7 % (45.5-73.1); Platelet Count Result 303 k/mm3 (150-375); Red Blood Count 4.64 M/mm3 (4.6-6.20); Red Cell Distribution Width 13.7 % (11.5-14.5); White Blood Count 7.1 K/mm3 (4.5-10.0)
== END 2023-06-29 07:50 | disposition home or self-care (01) ==
PROVIDERS: PCP Family Medicine; Visit Provider Physician Assistant Medical
DX: R74.8 Abnormal levels of other serum enzymes (principal); D72.829 Elevated white blood cell count, unspecified
CPT/HCPCS: 36415; 85025

== ENCOUNTER 2023-06-30 15:29 | Outpatient (CLI) | payer MEDICARE, OTHER, SELFPAY ==
[2023-06-30 16:08] LABS: Alanine Aminotransferase 18 U/L (6-50); Albumin Level 3.9 g/dL (3.5-5.1); Alkaline Phosphatase 151 U/L (38-126); Aspartate Amino Transferase 33 U/L (17-59); Bilirubin,Total 0.5 mg/dL (0.2-1.3)
== END 2023-06-30 15:30 | disposition home or self-care (01) ==
LOC: ANHLAB 15:31
PROVIDERS: PCP Family Medicine; Visit Provider Nurse Practitioner
DX: R74.8 Abnormal levels of other serum enzymes (principal)
CPT/HCPCS: 36415; 80076

== ENCOUNTER 2023-07-05 10:57 | Outpatient (CLI) | payer MEDICARE, OTHER, SELFPAY ==
[2023-07-05 11:42] LABS: Alanine Aminotransferase 15 U/L (6-50); Albumin Level 3.7 g/dL (3.5-5.1); Alkaline Phosphatase 144 U/L (38-126); Aspartate Amino Transferase 23 U/L (17-59); Bilirubin,Total 0.4 mg/dL (0.2-1.3)
== END 2023-07-05 10:58 | disposition home or self-care (01) ==
PROVIDERS: PCP Family Medicine; Visit Provider Nurse Practitioner
DX: R74.8 Abnormal levels of other serum enzymes (principal)
CPT/HCPCS: 36415; 80076

== ENCOUNTER 2023-07-06 11:24 | Outpatient (CLI) | payer MEDICARE, OTHER, SELFPAY ==
[2023-07-06 12:19] LABS: Alanine Aminotransferase 14 U/L (6-50); Albumin Level 3.9 g/dL (3.5-5.1); Alkaline Phosphatase 137 U/L (38-126); Anion Gap 5 mmol/L (4-12); Aspartate Amino Transferase 30 U/L (17-59); Bilirubin,Total 0.5 mg/dL (0.2-1.3); Blood Urea Nitrogen 19 mg/dL (9-20); Calcium 9.8 mg/dL (8.4-10.2); Carbon Dioxide 29 mmol/L (22-30); Chloride 105 mmol/L (98-107); Estimated Glomerular Filt Rate > 60; Glucose 98 mg/dL (65-110); Potassium 4.7 mmol/L (3.4-5.0); Sodium 139 mmol/L (137-145)
== END 2023-07-06 11:25 | disposition home or self-care (01) ==
PROVIDERS: PCP Family Medicine; Visit Provider Physician Assistant Medical
DX: E87.1 Hypo-osmolality and hyponatremia (principal); R74.8 Abnormal levels of other serum enzymes
CPT/HCPCS: 36415; 80053

== ENCOUNTER 2023-11-02 11:29 | Outpatient (CLI) | payer MEDICARE, OTHER, SELFPAY ==
--- NOTE | ~2023-11-02 | XR_ITS ---
EXAMINATION: XR chest 2V 11/02/2023 11:49 INDICATION: Pleural effusion PROCEDURE: 2 view chest COMPARISON: Comparison to multiple prior studies sequentially, with oldest reviewed study dated 02/2012. FINDINGS: The lungs are clear. The cardiomediastinal silhouette is within normal limits. There are no pleural effusions. There is no pneumothorax suspected. IMPRESSION: 1: NO ACUTE CARDIOPULMONARY DISEASE. Reviewed, dictated and finalized at location B.
== END 2023-11-02 11:30 | disposition home or self-care (01) ==
PROVIDERS: PCP Family Medicine; Visit Provider Internal Medicine Pulmonary Disease
DX: J90 Pleural effusion, not elsewhere classified (principal)
CPT/HCPCS: 71046

== ENCOUNTER 2024-10-23 10:00 | Outpatient (CLI) | payer MEDICARE, OTHER, SELFPAY ==
[2024-10-23 10:20] LABS: Hematocrit 44.6 % (42.0-52.0); Hemoglobin 13.6 g/dL (14.0-18.0); Immature Granulocyte Percent A 0.6 % (0-0.5); Lymphocytes Absolute Auto 0.76 K/mm3 (0.9-3.2); Mean Corpuscular HGB Conc 30.5 g/dl (32-36); Mean Corpuscular Hemoglobin 29.5 pg (26-34); Mean Corpuscular Volume 96.7 fl (80-100); Nucleated Red Blood Cells Absolute Auto 0.000 K/mm3 (0.0-0.012); Nucleated Red Blood Cells Perc 0.0 % (0.0-0.2); Platelet Count Result 335 k/mm3 (150-375); Red Blood Count 4.61 M/mm3 (4.6-6.20); White Blood Count 6.8 K/mm3 (4.5-10.0)
--- OUTSIDE RECORDS SUMMARY | 2024-10-23 10:26 | XMS_ITS | Clinical Summary ---
Author Organization [facility] Address [address] [place] [address] Care Team Providers Care Caregivers Homecare Name Role Phone Kuldip Joshua MD Primary Care Provider [phone] Source Comments [facility],non-owned Affiliates and Associated Physician Practices is amultiple site organization consisting of ambulatory clinics and hospital sitesin [place], [place], [place] and [place]. This disclosure is being madepursuant to the Care Everywhere program and may not contain all information available regarding this patient. Last updated 17.[facility] Allergies Active Allergy Reactions Criticality Noted Date Comments Sulfa Drugs Rash Medium 09/03/2010 MOUTH SORES Medications * Be aware that medications may not be up to date on this document. Alwaysverify current medications with the patient. allopurinol (ZYLOPRIM) 100 MG tablet Take 1 (one) tablet by mouth once daily Active lisinopril (PRINIVIL; ZESTRIL) 40 MG tablet Take 1 (one) tablet by mouth once daily Active metoprolol succinate XL 24hr (TOPROL XL) 100 MG tablet 1 (one) tablet 2 times daily 09/14/2017 Active hydrocortisone (HYTONE) 2.5 % ointmentIndicati ons:LSC (lichen simplex chronicus) APPLY A THIN LAYER TO LEFT CHONG NEEDED FOR ITCHING 454 g 09/03/2020 Active escitalopram (LEXAPRO) 10 MG tablet Take 1 (one) tablet by mouth once daily 10/14/2020 Active Multiple Vitamins-Mineral s (CENTRUM SILVER PO) Take 0.5 tablets by mouth 2 times daily Active Cholecalciferol (VITAMIN D) 125 MCG (5000 UT) CAPS Take 1 (one) capsule by mouth daily with dinner Active HYDROcodone-acet aminophen ([place]) 10-325 MG tablet Take 0.5 (one-half) tablet to 1 (one) tablet by mouth every 6 hours as needed for Pain 28 tablet 11/27/2021 Active meloxicam (Mobic) 15 MG tabletIndication s:Aftercare following left knee joint replacement surgery Take 1 tablet by mouth once daily 30 tablet 5 02/10/2022 Active cephalexin (Keflex) 500 MG tablet Take 1 (one) tablet by mouth 3 times daily For 7 days. 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 (F LUZONE; FLULAVAL; FLUARIX; AFLURIA QUADRIVALENT; 6MO+), 0.5 ML (IIV4) 12/27/2018 Family History Medical History Relation Name Comments None Known Brother None Known Father None Known Maternal Aunt None Known Maternal Grandfather None Known Maternal Grandmother None Known Maternal Uncle None Known Mother None Known Other None Known Paternal Aunt None Known Paternal Grandfather None Known Paternal Grandmother None Known Paternal Uncle None Known Sister Asthma Neg Hx CVA Neg Hx Cancer - Breast Neg Hx Cancer - Other Neg Hx Cancer - Skin, Melanoma Neg Hx Cancer - Skin, Non Melanoma Neg Hx Eczema Neg Hx Hemophilia Neg Hx Psoriasis Neg Hx Relation Name Status Comments Brother Father Maternal Aunt Maternal Grandfather Maternal Grandmother Maternal Uncle Mother Other Paternal Aunt Paternal Grandfather Paternal Grandmother Paternal Uncle Sister Social History Tobacco Use Types Packs/Day Years Used Date Smoking Tobacco: Never Smokeless Tobacco: Never Alcohol Use Standard Drinks/Week Comments Yes 0 (1 standard drink = 0.6 oz pur e alcohol) 4-5 beers a month AUDIT-C Answer Date Recorded Q1: How often do you have a drink containing alc ohol? 2-4 times a month 11/05/2021 Q2: How many drinks containi ng alcohol do you have on a typical day when you are drinking? 1 or 2 11/05/2021 Q3: How often do you have si x or more drinks on one occasion? Never 11/05/2021 Hunger Vital Sign Answer Date Recorded Within the past 12 months, y ou worried that your food would run out before you got the money to buy more. Never true 11/07/19 22 Within the past 12 months, t he food you bought just didn't last and you didn't have money to get more. 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 Gender Identity Not on file Sexual Orientation Not on file Last Filed Vital Signs Vital Sign Reading Time Taken Comments Blood Pressure 134/62 11/07/2021 9:26 AM CDT Pulse 70 11/07/2021 9:26 AM CDT Temperature 36.7 C (98.1 F) 11/07/2021 7:54 AM CDT Respiratory Rate 18 11/07/2021 7:54 AM CDT Oxygen Saturation 98% 11/07/2021 7:54 AM CDT Inhaled Oxygen Concentration - - Weight 141.1 kg (311 lb) 12/17/2022 11:04 AM CDT Height 180.3 cm (5' 11) 12/17/2022 11:04 AM CDT Body Mass Index 43.38 12/17/2022 11:04 AM CDT Plan of Treatment Health Maintenance Due Date Last Done Comments MEDICARE AWV 12 MONTHS 1942 DTAP/TDAP/TD VACCINES (1 - Tdap) 1961 PNEUMOCOCCAL VACCINE 50+ (1 of 1 - PCV) 1992 ZOSTER VACCINE (1 of 2) 1992 Respiratory Syncytial Virus (RSV) Vaccine Pt: or over 60 yrs (1 - 1-dose 75+ series) 2017 COVID-19 VACCINE (3 - season) 2023 05/22/2020, 05/01/2020 DEPRESSION SCREENING 02/29/2024 INFLUENZA VACCINE (#1) 2024 1, 01/11/2020, 12/27/2018, Additional history exists HEPATITIS B VACCINE Aged Out No longe r eligible based on patient's age to complete this topic HIB VACCINE Aged Out No longer eligi ble based on patient's age to complete this topic HPV VACCINE Aged Out No longer eligi ble based on patient's age to complete this topic MENINGOCOCCAL (Group B) VACCINE SHARED DECISION-MAKING Aged Out No longer eligible based on patient's age to complete this topic MENINGOCOCCAL GROUPS A/C/Y/W VACCINE Aged Out No longer eligible based on patient's age to complete this topic Medical Devices Implanted Type Area Belt Notcher Device Identifier Shelf Expiration Date Model / Serial / Lot Cmnt Bone Djo Srg Cblt 40gm Hvisc Strl Implanted:Qty: 1 on 12/12/2020 by Cuba Keating MD at [facility] Left: Knee [employer] 04/01/2022 600-15-000 / / [id number] Patrick Bone [place]-G Hv 40/20 Implanted:Qty: 1 on 12/12/2020 by Cuba Keating MD at [facility] Left: Knee [employer] 04/01/2022 600-15-100 / / [id number] Cmpnt Ptlr 31mm 1 Pg Wire Ascnt Arcm Kn Implanted:Qty: 1 on 12/12/2020 by Cuba Keating MD at [facility] Left: Knee [employer] 11/07/2025 [id number] / / [id number] Tray Tib 83mm Kn Cocr I Beam Implanted:Qty: 1 on 12/12/2020 by Cuba Keating MD at [facility] Left: Knee [employer] 07/29/2030 [id number] / / [id number] Cmpnt Fem Kn Lt Cr Cmnt Prm Vngrd Intlk Implanted:Qty: 1 on 12/12/2020 by Cuba Keating MD at [facility] Left: Knee [employer] 10/10/2030 [id number] / / [id number] Brng 13oio71au Vngrd Arcm Kn Ant Stab Implanted:Qty: 1 on 12/12/2020 by Cuba Keating MD at [facility] Left: Knee [employer] 07/03/2025 [id number] / / [id number] Tray Tib 79mm Kn Cocr I Beam Implanted:Qty: 1 on 11/05/2021 by Cuba Keating MD at [facility] Right: Knee [employer] 09/11/2031 [id number] / / [id number] Cmpnt Fem Kn Rt Cr Cmnt Prm Vngrd Intlk Implanted:Qty: 1 on 11/05/2021 by Cuba Keating MD at [facility] Right: Knee [employer] 08/16/2031 [id number] / / [id number] Brng [id number] Vngrd Arcm Kn Ant Stab Implanted:Qty: 1 on 11/05/2021 by Cuba Keating MD at [facility] Right: Knee [employer] 06/25/2026 [id number] / / [id number] Cmnt Bone Djo Srg Cblt 40gm Hvisc Strl Implanted:Qty: 1 on 11/05/2021 by Cuba Keating MD at [facility] Right: Knee [employer] 09/10/2022 600-15-000 / / [id number] Cmpnt Ptlr 28mm 1 Pg Wire Ascnt Arcm Kn Implanted:Qty: 1 on 11/05/2021 by Cuba Keating MD at [facility] Right: Knee [employer] 07/14/2026 [id number] / / [id number] Explanted Type Area Belt Notcher Device Identifier Shelf Expiration Date Model / Serial / Lot Sys Bone Cmnt Optvc Shrt Xtd Crtdg Nrm Explanted:Qty: 1 on 11/05/[address] [facility] Right: Knee [employer] [id number] / / Insurance MEDICARE MEDICARE AET MEDICARE Member Subscriber Plan / Payer (Ef fective for All Dates) Name:Dafne Bermudez Member ID:[id number] Relation to Subscriber:Self Name:Dafne Bermudez Subscriber ID:[id number] Payer ID:Not on file Group ID:Not on file Type:Medicare Address: [place] [phone] [employer] MED[employer] MED[employer] Member Subscriber Plan / Payer (Ef fective for All Dates) Name:Dafne Bermudez Member ID:[id number] Relation to Subscriber:Self Name:Hung Dafne Fernandes Subscriber ID:[id number] Payer ID:Not on file Group ID:Not on file Type:Medicare Address: [place] [phone] [employer] Advance Directives Documents on File Type Date Recorded Patient Block Layer Expl anation Adv Directive/Living Will/POA 12/16/2020 11:06 AM * Full Code (Latest Code Status on File) Date Activated Date Inactivated Comments 11/05/2021 3:32 PM 11/07/2021 4:24 PM * Full Code Date Activated Date Inactivated Comments 12/12/2020 12:08 PM 12/14/2020 11:51 AM * FULL RESUSCITATION Date Activated Date Inactivated Comments 09/07/2010 10:19 AM 09/10/2010 8:12 AM Care Teams Caregivers Homecare Relationship Specialty Start Date End Date Kuldip Joshua MD [address] [place] [address] PCP - General 08/19/10
[2024-10-23 10:55] LABS: Alanine Aminotransferase 36 U/L (6-50); Albumin Level 3.6 g/dL (3.5-5.1); Alkaline Phosphatase 178 U/L (38-126); Anion Gap 6 mmol/L (4-12); Aspartate Amino Transferase 47 U/L (17-59); Bilirubin,Total 1.0 mg/dL (0.2-1.3); Blood Urea Nitrogen 18 mg/dL (9-20); Calcium 8.8 mg/dL (8.4-10.2); Carbon Dioxide 25 mmol/L (22-30); Chloride 104 mmol/L (98-107); Estimated Glomerular Filt Rate > 60; Glucose 109 mg/dL (65-110); Potassium 4.8 mmol/L (3.4-5.0); Sodium 135 mmol/L (137-145); Total Protein 7.5 g/dL (6.3-8.2)
== END 2024-10-23 10:01 | disposition home or self-care (01) ==
PROVIDERS: PCP Family Medicine; Visit Provider Physician Assistant Medical
DX: K80.50 Calculus of bile duct without cholangitis or cholecystitis without obstruction (principal); A41.9 Sepsis, unspecified organism
CPT/HCPCS: 36415; 80053; 85025

== ENCOUNTER 2025-01-09 12:31 | Outpatient (CLI) | payer MEDICARE, OTHER, SELFPAY ==
--- OUTSIDE RECORDS SUMMARY | 2025-01-09 13:35 | XMS_ITS | Clinical Summary ---
Author Organization [facility] [employer] Address [address] [place] [address] Care Team Providers Care Crusher And Blender Operator Name Role Phone Kuldip Joshua MD Primary Care Provider [phone] Source Comments [facility] [employer],non-owned Affiliates and Associated Physician Practices is amultiple site organization consisting of ambulatory clinics and hospital sitesin [place], [place], [place] and [place]. This disclosure is being madepursuant to the Care Everywhere program and may not contain all information available regarding this patient. 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 Gender Identity Not on file Sexual Orientation [...] yrs (1 - 1-dose 75+ series) 2017 DEPRESSION SCREENING 02/29/2024 COVID-19 VACCINE (3 - season) 2024 05/22/2020, 05/01/2020 INFLUENZA VACCINE (#1) 2024 1, 01/11/2020, 12/27/2018, [...] this topic Medical Devices Implanted Type Area Sign Erector Device Identifier Shelf Expiration Date Model / Serial / Lot Cmnt Bone Djo Srg Cblt 40gm Hvisc Strl Implanted:Qty: 1 on 12/12/2020 by Cuba Keating MD at [facility] Left: Knee [employer] 04/01/2022 600-15-000 / / [id number] Patrick Bone [place]-G Hv 40/20 Implanted:Qty: 1 on 12/12/2020 by Cuba Keating MD at [facility] Left: Knee [employer] 04/01/2022 600-15-100 / / [id number] Cmpnt Ptlr 31mm 1 Pg Wire Ascnt Arcm Kn Implanted:Qty: 1 on 12/12/2020 by Cuba Keating MD at [facility] Left: Knee [employer] 11/07/2025 [id number] / / [id number] Tray Tib 83mm Kn Cocr I Beam Implanted:Qty: 1 on 12/12/2020 by Cuba Keating MD at [facility] Left: Knee [employer] 07/29/2030 [id number] / / [id number] Cmpnt Fem Kn Lt Cr Cmnt Prm Vngrd Intlk Implanted:Qty: 1 on 12/12/2020 by Cuba Keating MD at [facility] Left: Knee [employer] 10/10/2030 [id number] / / [id number] Brng [id number] Vngrd Arcm Kn Ant Stab Implanted:Qty: 1 on 12/12/2020 by Cuba Keating MD at [facility] Left: Knee [employer] 07/03/2025 [id number] / / [id number] Tray Tib 79mm Kn Cocr I Beam Implanted:Qty: 1 on 11/05/2021 by Cuba Keating MD at [facility] Right: Knee [employer] 09/11/2031 [id number] / / [id number] Cmpnt Fem Kn Rt Cr Cmnt Prm Vngrd Intlk Implanted:Qty: 1 on 11/05/2021 by Cuba Keating MD at [facility] Right: Knee [employer] 08/16/2031 [id number] / / [id number] Brng [id number] Vngrd Arcm Kn Ant Stab Implanted:Qty: 1 on 11/05/2021 by Cuba Keating MD at [facility] Right: Knee [employer] 06/25/2026 [id number] / / [id number] Cmnt Bone Djo Srg Cblt 40gm Hvisc Strl Implanted:Qty: 1 on 11/05/2021 by Cuba Keating MD at [facility] Right: Knee [employer] 09/10/2022 600-15-000 / / [id number] Cmpnt Ptlr 28mm 1 Pg Wire Ascnt Arcm Kn Implanted:Qty: 1 on 11/05/2021 by Cuba Keating MD at [facility] Right: Knee [employer] 07/14/2026 [id number] / / [id number] Explanted Type Area Sign Erector Device Identifier Shelf Expiration Date Model / Serial / Lot Sys Bone Cmnt Optvc Shrt Xtd Crtdg Nrm Explanted:Qty: 1 on 11/05/2021 at [facility] Right: Knee [employer] [id number] / / Insurance MEDICARE MEDICARE AET MEDICARE Member Subscriber Plan / Payer (Ef fective for All Dates) Name:Dafne Bermudez Member ID:[id number] Relation to Subscriber:Self Name:Dafne Bermudez Subscriber ID:[id number] Payer ID:Not on file Group ID:Not on file Type:Medicare Address: [place] [phone] [employer] MED[employer]ARE [employer] Member Subscriber Plan / Payer (Ef fective for All Dates) Name:Dafne Bermudez Member ID:[id number] Relation to Subscriber:Self Name:Hung Dafne Fernandes Subscriber ID:[id number] Payer ID:Not on file Group ID:Not on file Type:Medicare Address: [place] [phone] [employer] Advance Directives Documents on File Type Date Recorded 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
--- OUTSIDE RECORDS SUMMARY | 2025-01-09 13:35 | XMS_ITS | Clinical Summary ---
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 Active allopurinoL (ZYLOPRIM) 100 MG tabletIndications:pr evention of acute gout attack Take one tablet (100 mg total) by mouth daily after breakfast. Active multivitamin (ONE-A-DAY) tabletIndications:vi tamin deficiency prevention Take one tablet by mouth one (1) time a day. Active aspirin 81 mg TabIndications:perip heral arterial thromboembolism prevention Take by mouth. Active Active Problems Problem Noted Date Diagnosed Date Cholangitis 10/12/2024 HTN (hypertension) 10/12/2024 Resolved Problems Problem Noted Date Diagnosed Date Resolved Date Bacteremia due to Klebsiella pneumoniae 10/15/2024 10/22/2024 Sepsis 10/12/2024 10/14/2024 Choledocholithiasis 10/12/2024 10/15/19 Hyperkalemia 10/12/2024 10/14/2024 Encounters Date Type Department Care Team Description 10/13/2024 10:25 AM CDT Anesthesia Event [facility] ([facility] [address] [facility] [place] [address] Wesley Cisneros MD 10/13/2024 9:45 AM CDT - 10/13/2024 11:09 AM CDT Surgery [address] [place] [address] Corey Steve MD ENDOSCOPIC RETROGRADE CHOLANGIOPANCREATOGRAPHY with 12-15 balloon used to sweep CBD-lots of sludge(large and small bits). Opening to CBD dilated with 15mm balloon-CBD swept again several times with eventual large stone removal. 10/12/2024 4:56 PM CDT Anesthesia Event [address] [place] [address] Courtney Latif MD Pickens, Brittany Keishana, CRNA 10/12/2024 4:00 PM CDT - 10/12/2024 5:24 PM CDT Surgery [address] [place] [address] Corey Steve MD ENDOSCOPIC RETROGRADE CHOLANGIOPANCREATOGRAPHY-Stom ach full of food-switched to EGD scope-unable to clear stomach of food-unable to locate pylorus-procedure terminated 10/12/2024 4:19 AM CDT - 10/15/2024 12:19 PM CDT Hospital Encounter [address] [place] [address] Shin Carter MD Qayyum, Muneeba, MD Zafar, Salman, MD Nathani, Karishma, MD Cholangitis ([facility] ) Discharge Disposition: Home 10/12/2024 Travel from Last 3 Months Social History Tobacco Use Types Packs/Day Years Used Date Smoking Tobacco: Never Smokeless Tobacco: Never Tobacco Cessation:Counseling Given: Not Answered BOC Food Insecurity Answer Date Recorde d Food/Housing/Utility/Transport/Financial Concern s Unrecognized value 10/12/2024 BOC Transportation Needs Answer Date Re corded Food/Housing/Utility/Transport/Financial Concern s Unrecognized value 10/12/2024 BOC Housing Stability Source Answer Donal e Recorded Food/Housing/Utility/Transport/Financial Concern s Unrecognized value 10/12/2024 BOC Utility Needs Source Answer Date Re corded Food/Housing/Utility/Transport/Financial Concern s Unrecognized value 10/12/2024 BOC Financial Resource Needs Answer Donal e Recorded Food/Housing/Utility/Transport/Financial Concern s Unrecognized value 10/12/2024 Intimate Partner Safety Answer Date Rec orded Feels Unsafe at Home or Work/School Unrecognized value 10/12/2024 Feels Threatened by Someone Unrecognized value 0 10/12/2024 Does Anyone Try to Keep You From Having Contact with Others or Doing Things Outside Your Home? Unrecognized value 10/12/2024 Physical Signs of Abuse Present Unrecognized lowell ue 10/12/2024 Intimate Partner Safety Not on file 10/13/19 Sex and Gender Information Value Date Recorded Sex Assigned at Not on file Legal Sex Male 4:14 AM CDT Gender Identity Not on file Sexual Orientation Not on file Last Filed Vital Signs Vital Sign Reading Time Taken Comments Blood Pressure 119/62 10/15/2024 8:31 AM CDT Pulse 84 10/15/2024 8:31 AM CDT Temperature 36.6 C (97.8 F) 10/15/2024 8:31 AM CDT Respiratory Rate 18 10/15/2024 8:31 AM CDT Oxygen Saturation 95% 10/15/2024 8:31 AM CDT Inhaled Oxygen Concentration - - Weight 110.9 kg (244 lb 9.6 oz) 10/13/2024 6:06 PM CDT Height 177.8 cm (5' 10) 10/13/2024 6:06 PM CDT Body Mass Index 35.1 10/13/2024 6:06 PM CDT Plan of Treatment Health Maintenance Due Date Last Done Comments Annual Depression Screening 1951 Medicare Subsequent AWV G0439 02/29/2008 Pneumococcal Vaccine Age 50+ (2 of 2 - PCV) 11/16/2008 11/17/2007 RSV Immunization Pa tients or 60+ Years (1 - 1-dose 75+ series) 2017 Flu Vaccine (#1) 10/29/2024 12/27/2018, , 01/01/2008 Influenza Vaccine 10/29/2024 12/27/2018, , 01/01/2008 Medical Devices Implanted Type Area Plan Checker Device Identifier Shelf Expiration Date Model / Serial / Lot Sphincterotome [place] [id number] - [id number] Implanted:Qty: 1 on 10/12/2024 by Corey Steve MD at [facility] [id number] / / [id number] Sphincterotome [place] [id number] - [id number] Implanted:Qty: 1 on 10/13/2024 by Corey Steve MD at [facility] [id number] / / [id number] Procedures Procedure Name Priority Date/Time Associated Diagnosis Comments COMPREHENSIVE METABOLIC PANEL STAT 8:31 AM CDT CBC WITH DIFFERENTIAL STAT 10/15/2024 8:31 AM CDT CULTURE BLOOD Routine 10/15/2024 8:31 AM CDT CULTURE BLOOD Routine 10/15/2024 8:31 AM CDT COMPREHENSIVE METABOLIC PANEL Routine 4:25 AM CDT CBC WITH DIFFERENTIAL Routine 10/14/2024 4:25 AM CDT CULTURE URINE STAT 10/14/2024 1:56 AM CDT XR ERCP BILIARY ONLY Routine 10/13/2024 11:17 AM CDT ENDOSCOPIC RETROGRADE CHOLANGIOPANCREATOGRAPHY 10/13/2024 10:25 AM CDT Choledocholithi asis CBC WITHOUT DIFFERENTIAL Routine 025 12:34 AM CDT COMPREHENSIVE METABOLIC PANEL Routine 12:34 AM CDT ENDOSCOPIC RETROGRADE CHOLANGIOPANCREATOGRAPHY 10/12/2024 4:57 PM CDT Choledocholithi asis with cholangitis GLUCOSE BEDSIDE Routine 10/12/2024 12:16 PM CDT REPEAT LACTIC ACID - MUST BE DRAWN WITHIN 4 HOURS Timed 10/12/2024 8:22 AM CDT URINALYSIS WITH MICROSCOPIC STAT 09/28 7:[address] CHEST ABDOMEN PELVIS W CONTRAST STAT 10/12/2024 5:08 AM CDT POC CREATININE Routine 10/12/2024 5:00 AM CDT EKG 12-LEAD STAT 10/12/2024 4:59 AM CDT TROPONIN HIGH SENSITIVITY, SINGLE ORDER Routine 10/12/2024 4:38 AM CDT LIPASE STAT 10/12/2024 4:38 AM CDT COMPREHENSIVE METABOLIC PANEL STAT 4:38 AM CDT CBC WITH DIFFERENTIAL STAT 10/12/2024 4:38 AM CDT LACTIC ACID WITH REPEAT IF POSITIVE STAT 10/12/2024 4:38 AM CDT CULTURE BLOOD POS ID After office visit 10/12/2024 4:38 AM CDT RAPID ID/AST BLOOD - ACCELERATED STAT 10/12/2024 4:38 AM CDT CULTURE BLOOD STAT 10/12/2024 4:38 AM CDT CULTURE BLOOD STAT 10/12/2024 4:38 AM CDT from Last 3 Months Results * Culture Blood (10/15/2024 8:31 AM CDT) Only the most recent of4 resultswithin the time period is included. Blood Culture No Growth at 5 Days 10/20/2024 9:01 AM CDT [facility] TO Blood VENOUS CANNULA TIP SUBMITTED SPECIMEN / Unknown Venipuncture / Unknown 10/15/2024 8:31 AM CDT 10/15/2024 8:49 AM CDT Narrative [facility] - 10/20/2024 9:01 AM CDT Automatically resulted by a batch job. us Olga Cohen MD MICROBIOLOGY - GENERAL ORDER AGUSTIN Final Result [facility] [address] [facility] [place] [address] * (ABNORMAL) CBC with Differential (10/15/2024 8:31 AM CDT) Only the most recent of3 resultswithin the time period is included. WBC 11.7(H) 5.0 - 10.0 K/uL 10/15/2024 8:58 AM CDT [facility] TO RBC 4.73 4.30 - 5.70 M/uL 10/15/2024 8:58 AM CDT [facility] TO Hemoglobin 14.2 14.0 - 18.0 g/dL 10/15/2024 8:58 AM CDT [facility] TO Hematocrit 43.2 40.0 - 54.0 % 10/15/2024 8:58 AM CDT [facility] TO MCV 91.3 80.0 - 97.0 fL 10/15/2024 8:58 AM CDT [facility] TO MCH 30.0 27.0 - 32.0 pg 10/15/2024 8:58 AM CDT [facility] TO MCHC 32.9 32.0 - 36.0 g/dL 10/15/2024 8:58 AM CDT [facility] TO RDW SD 48.5(H) 35.1 - 43.9 fL 10/15/2024 8:58 AM CDT [facility] TO Platelet 89(L) 150 - 500 K/uL 10/15/2024 8:58 AM CDT [facility] TO MPV 10/[facility]24 8:[facility] Comment:Not measured. NRBC Absolute 0.000 0.000 - 0.012 K/uL 10/15/2024 8:58 AM CDT [facility] NRBC Auto 0.0 0.0 - 0.0 % 10/15/2024 8:58 [facility] Absolute Neutrophil 9.8(H) 2.5 - 7.5 K/uL 10/15/2024 8:58 AM CDT [facility] TO Absolute Lymphocyte 0.6(L) 1.0 - 4.0 K/uL 10/15/2024 8:58 AM CDT [facility] TO Absolute Monocyte 0.80(H) 0.05 - 0.60 K/uL 10/15/2024 8:58 [facility] Absolute Eosinophil 0.43 0.05 - 0.50 K/uL 10/15/2024 8:58 AM [facility] Absolute Basophil 0.03 0.00 - 0.10 K/uL 10/15/2024 8:58 AM [facility] Absolute Immature Granulocytes 0.06(H) <=0.00 K/uL 10/15/2024 8:58 AM [facility] Neutrophil percent 83.7(H) 50.0 - 75.0 % 10/15/2024 8:58 AM [facility] Lymphocyte percent 5.0(L) 20.0 - 40.0 % 10/15/2024 8:58 AM [facility] Monocyte percent 6.8(H) 0.0 - 6.0 % 10/15/2024 8:58 AM [facility] Eosinophil percent 3.7 0.0 - 6.0 % 10/15/2024 8:58 AM [facility] Basophils Percent, Automated 0.3 0.0 - 1.0 % 10/15/2024 8:58 AM [facility] Immature Granulocytes percent 0.50(H) % 10/15/2024 8:58 AM CDT [facility] TO Blood Venipuncture / Unknown 10/15/2024 8:31 AM CDT 10/15/2024 8:44 AM CDT us Olga Cohen MD LAB BLOOD ORDERABLES Final R esult [facility] [address] [facility] [place] [address] * (ABNORMAL) Comprehensive Metabolic Panel (10/15/2024 8:31 AM CDT) Only the most recent of4 resultswithin the time period is included. Sodium 135 135 - 145 mmol/L 10/15/2024 9:15 AM CDT [facility] TO Potassium 3.9 3.5 - 5.0 mmol/L 10/15/2024 9:15 AM CDT [facility] TO Chloride 104 98 - 107 mmol/L 10/15/2024 9:15 AM CDT [facility] TO Carbon Dioxide 21 21 - 32 mmol/L 10/15/2024 9:15 AM CDT [facility] TO Anion Gap 10 6 - 16 mmol/L 10/15/2024 9:15 AM CDT [facility] TO Glucose 95 70 - 110 mg/dL 10/15/2024 9:15 AM CDT [facility] TO BUN 31(H) 8 - 23 mg/dL 10/15/2024 9:15 AM CDT [facility] TO Creatinine 0.88 0.70 - 1.20 mg/dL 10/15/2024 9:15 AM CDT [facility] TO BUN/Creatinine Ratio 35.2(H) 11.7 - 13.9 10/15/2024 9:15 AM CDT [facility] TO Calcium 9.2 8.5 - 10.1 mg/dL 10/15/2024 9:15 AM CDT [facility] TO Comment:Calcium measurements are adversely affected by the use of Omniscan during MRI. Analysis of calcium is not recommended for 12 to 24 hours after the use of the contrast agent. Protein total 6.0(L) 6.4 - 8.3 g/dL 10/15/2024 9:15 AM CDT [facility] TO Albumin 2.4(L) 3.5 - 5.2 g/dL 10/15/2024 9:15 AM CDT [facility] TO Bilirubin Total 2.0(H) 0.0 - 1.0 mg/dL 10/15/2024 9:15 AM CDT [facility] TO AST 57(H) <=50 U/L 10/15/2024 9:15 AM CDT [facility] TO ALT 139(H) <=50 U/L 10/15/2024 9:15 AM CDT [facility] TO ALP 262(H) 40 - 129 U/L 10/15/2024 9:15 AM CDT [facility] TO eGFR 2020 CKD-EPI-cr 85.9 >60.0 mL/min/1.7 3m*2 10/15/2024 9:15 AM CDT [facility] TO Blood Venipuncture / Unknown 10/15/2024 8:31 AM CDT 10/15/2024 8:44 AM CDT us Olga Cohen MD LAB BLOOD ORDERABLES Final R esult [facility] [address] [place] [address] * Cult Urine (10/14/2024 1:56 AM CDT) Urine URINE SPECIMEN OBTAINED BY CLEAN CATCH PROCEDURE / Unknown Collection / Unknown 10/14/2024 1:56 AM CDT 10/14/2024 2:10 AM CDT Narrative [facility] - 10/15/2024 4:05 PM CDT CULTURE No growth (<1,000 cfu/mL) [facility] Microbiology Laboratory [address], [facility], [place] [address] Direct Marketing Analyst: Christine Stroud, PhD, D([facility]) [facility]# [id number] us Anni Olivera MD MICROBIOLOGY - GENERAL ORDERABLE S Final Result [facility] [address] [place] [address], [facility] [phone] * X-Ray Ercp Biliary Only (10/13/2024 11:17 AM CDT) Anatomical Region Laterality Modality Abdomen X-ray 10/13/2024 12:3 0 PM CDT Narrative 10/13/2024 12:31 PM CDT History: ENDOSCOPIC RETROGRADE CHOLANGIOPANCREATOGRAPHY. Fluoroscopic imaging obtained intraoperatively and interpreted intraoperatively by the attending surgeon. Correlation with intraoperative fluoroscopic findings is recommended. Please see intraoperative report for further details. Dose Area Prod: 16.7 Gy*cm2 Procedure Note Samuel Romano MD - 10/13/2024 History: ENDOSCOPIC RETROGRADE CHOLANGIOPANCREATOGRAPHY. Fluoroscopic imaging obtained intraoperatively and interpreted intraoperatively by the attending surgeon. Correlation with intraoperative fluoroscopic findings is recommended. Please see intraoperative report for further details. Dose Area Prod: 16.7 Gy*cm2 us Corey Steve MD XR IMG ORDERABLES Final Result * (ABNORMAL) CBC without Differential (10/13/2024 12:34 AM CDT) WBC 19.6(H) 5.0 - 10.0 K/uL 10/13/2024 1:34 AM CDT [facility] TO RBC 4.31 4.30 - 5.70 M/uL 10/13/2024 1:34 AM CDT [facility] TO Hemoglobin 13.1(L) 14.0 - 18.0 g/dL 10/13/2024 1:34 AM CDT [facility] TO Hematocrit 40.2 40.0 - 54.0 % 10/13/2024 1:34 AM CDT [facility] TO MCV 93.3 80.0 - 97.0 fL 10/13/2024 1:34 AM CDT [facility] TO MCH 30.4 27.0 - 32.0 pg 10/13/2024 1:34 AM CDT [facility] TO MCHC 32.6 32.0 - 36.0 g/dL 10/13/2024 1:34 AM CDT [facility] TO Platelet 101(L) 150 - 500 K/uL 10/13/2024 1:34 AM CDT [facility] TO MPV 10/13/2024 1:34 AM CDT [facility] TO Comment:Not measured. RDW SD 49.5(H) 35.1 - 43.9 fL 10/13/2024 1:34 AM CDT [facility] TO NRBC Absolute 0.000 0.000 - 0.012 K/uL 10/13/2024 1:34 AM CDT [facility] TO NRBC Auto 0.0 0.0 - 0.0 % 10/13/2024 1:34 AM CDT [facility] TO Blood Venipuncture / Unknown 10/13/2024 12:34 AM CDT 10/13/2024 12:41 AM CDT us Anni Olivera MD LAB BLOOD ORDERABLES Final Resul t Performing Organization Address City/State/[facility] Co de Phone Number [facility] [address] [place] [address] * (ABNORMAL) Glucose bedside (10/12/2024 12:16 PM CDT) Bedside Glucose 171(H) 70 - 110 mg/dL 10/12/2024 12:19 PM CDT [facility] O Blood 10/12/2024 12:1 6 PM CDT 10/12/2024 12:19 PM CDT us Anni Olivera MD POINT OF CARE TEST ORDERABLES Fi nal Result Performing Organization Address City/[facility]/ZIP Co de Phone Number [address] [place] [address] * Repeat Lactic Acid - Must Be Drawn Within 4 Hours (10/12/2024 8:22 AM CDT) Lactic Acid 1.4 0.4 - 2.0 mmol/L 10/12/2024 8:43 AM CDT [facility] O Blood Venipuncture / Unknown 10/12/2024 8:22 AM CDT 10/12/2024 8:26 AM CDT us Shin Carter MD LAB BLOOD ORDERABLES Lizzy l Result Performing Organization Address [facility] Co de Phone Number [address] [place] [address] * (ABNORMAL) Urinalysis Auto Microscopic (10/12/2024 7:25 AM CDT) Color UA Dark Yellow Yellow 10/12/2024 8:29 AM CDT [facility] Clarity UA Clear Clear 10/12/2024 8:29 AM T [facility] pH UA 8.0 5.0 - 8.0 10/12/2024 8:29 AM T [facility] Specific [place] UA >=1.030 1.005 - 1.030 10/12/2024 8:29 AM T [facility] Glucose UA Negative Negative 10/12/2024 8:29 AM T [facility] Ketones UA Trace(A) Negative 10/12/2024 8:29 AM T [facility] Bilirubin UA Negative Negative 10/12/2024 8:29 AM T [facility] Protein UA 1+(A) Negative 10/12/2024 8:29 AM T [facility] Leukocyte Esterase UA Negative Negative 10/12/2024 8:29 AM CDT [facility] Nitrite UA Negative Negative 10/12/2024 8:29 AM CDT [facility] Blood UA Negative Negative 10/12/2024 8:29 AM CDT [facility] Urobilinogen UA 2.0(A) 0.2 - 1.0 E.U./dL 10/12/2024 8:29 AM CDT [facility] RBC UA 15.9 <=23.0 RBC/ul 10/12/2024 8:29 AM CDT [facility] WBC UA 2.3 <=28.0 WBC/ul 10/12/2024 8:29 AM CDT [facility] Squamous Epithelial Cells UA 1.4 <=31.0 Epi/ul 10/12/2024 8:29 AM CDT [facility] Hyaline Casts UA 0.00 <=2.00 Top And Seat Cover Fitter/ul 10/12/2024 8:29 AM CDT [facility] Bacteria UA 74.8 <=941.0 Vinayak/ul 10/12/2024 8:29 AM CDT [facility] Urine URINE SPECIMEN / Unknown Collection / Unknown 10/12/2024 7:25 AM CDT 10/12/2024 7:25 AM CDT us Shin Carter MD URINE ORDERABLES Final Re sult [facility] [address] [place] [address] * CT Chest Abdomen Pelvis With Contrast (10/12/2024 5:08 AM CDT) Anatomical Region Laterality Modality Abdomen, Chest, Pelvis, Hip Comp uted Tomography 10/12/2024 6:13 AM CDT Impressions 10/12/2024 9:32 AM CDT Preliminary impression: Motion degraded exam. 1. 14 mm stone in the distal common bile duct. The common bile duct proximally is dilated up to 17 mm in diameter, with wall thickening and surrounding inflammatory stranding and edema in the kellen hepatis. Constellation of findings compatible with choledocholithiasis and cholangitis. 2. Extensive intrahepatic portal venous gas. This is a nonspecific finding, and can be seen with intra-abdominal sepsis in the setting of cholangitis. There is no evidence of bowel perforation or intra-abdominal free air. 3. Multiple duodenal diverticula. 4. Colonic diverticulosis. 5. Fluid in the right inguinal canal. 6. No acute findings in chest. 7. Bibasilar atelectasis. Note: Findings were discussed with Dr. SHIN CARTER by Dr. Paz at 10/12/2024 6:05 AM CDT. BELOW IS THE FINAL ATTENDING REPORT INDICATION: Sepsis. COMPARISON: No existing relevant imaging studies are available TECHNIQUE: Enhanced CT of the chest, abdomen, and pelvis was performed per protocol. Multiplanar reconstructions were provided. Dose reduction techniques were utilized for this exam including automated exposure control, adjustments to mA and/or kV according to patient's size, and the use of iterative reconstruction techniques. FINDINGS: CHEST: Heart is normal in size. Multivessel coronary arterial calcifications. No pericardial effusion or thickening. Scattered calcified plaque along the thoracic aorta, which is otherwise grossly unremarkable. No pathologic intrathoracic or axillary adenopathy. Lungs are symmetrically aerated without focal consolidation, suspicious pulmonary nodule, pleural effusion, or pneumothorax. ABDOMEN / PELVIS: Intrahepatic biliary ductal dilatation with gas present within the intrahepatic biliary ducts. Periportal edema present. Dilatation of the common bile duct, which measures approximately 1.7 cm in caliber. Hyperdense focus is present at the ampulla, which measures up to 1.4 cm. Gallbladder has been resected. Portal vein appears patent. Pancreas, spleen, and adrenal glands are unremarkable. Symmetric nephrograms without hydronephrosis. Nonobstructing calculus within the inferior left renal collecting system measuring approximately 3 mm. No evidence of ureteral obstruction. Urinary bladder is unremarkable. Multiple duodenal diverticula present. No evidence of small bowel obstruction. Colonic diverticulosis without evidence of diverticulitis. Appendix is normal. No pneumoperitoneum or pneumatosis. Mild atherosclerotic calcifications present along the aortobiiliac vasculature without evidence of acute vascular abnormality. No retroperitoneal or inguinal lymphadenopathy. Fluid present within the inguinal canals. Prostate is unremarkable. No acute osseous abnormality. IMPRESSION: 1. Hyperdense focus suggestive of a stone within the ampulla with upstream extrahepatic and intrahepatic biliary ductal dilatation, with common bile duct measuring up to approximately 1.7 cm in caliber. Dilated intrahepatic ducts contain gas, and there is extensive periportal edema. Summation of findings compatible with obstructive choledocholithiasis complicated by cholangitis. 2. Colonic diverticulosis without evidence of diverticulitis. No evidence of bowel obstruction, pneumatosis, or pneumoperitoneum. 3. No acute abnormality within the chest. Note: Findings were discussed with Dr. SHIN CARTER by Dr. Paz at 10/12/2024 6:05 AM CDT. The images in this case were personally reviewed by the radiologist named below, and the report reflects his/her interpretation. Narrative 10/12/2024 9:32 AM CDT PRELIMINARY REPORT: Made available in [employer] on 10/12/2024 5:54 AM CDT by Sanju Paz MD. Patient: DAFNE BERMUDEZ, Male, 84 years old [id number] Study: CT CHEST ABDOMEN PELVIS W CONTRAST, 10/12/2024 5:18 AM CDT Provided indication: sepsis Comparison: None Procedure Note José Antonio Trammell MD - 10/12/2024 PRELIMINARY REPORT: Made available in [employer] on 10/12/2024 5:54 AM CDT by Sanju Paz MD. Patient: DAFNE BERMUDEZ, Male, 84 years old [id number] Study: CT CHEST ABDOMEN PELVIS W CONTRAST, 10/12/2024 5:18 AM CDT Provided indication: sepsis Comparison: None Preliminary impression: Motion degraded exam. 1. 14 mm stone in the distal common bile duct. The common bile duct proximally is dilated up to 17 mm in diameter, with wall thickening and surrounding inflammatory stranding and edema in the kellen hepatis. Constellation of findings compatible with choledocholithiasis and cholangitis. 2. Extensive intrahepatic portal venous gas. This is a nonspecific finding, and can be seen with intra-abdominal sepsis in the setting of cholangitis. There is no evidence of bowel perforation or intra-abdominal free air. 3. Multiple duodenal diverticula. 4. Colonic diverticulosis. 5. Fluid in the right inguinal canal. 6. No acute findings in chest. 7. Bibasilar atelectasis. Note: Findings were discussed with Dr. SHIN CARTER by Dr. Paz at 10/12/2024 6:05 AM CDT. BELOW IS THE FINAL ATTENDING REPORT INDICATION: Sepsis. COMPARISON: No existing relevant imaging studies are available TECHNIQUE: Enhanced CT of the chest, abdomen, and pelvis was performed per protocol. Multiplanar reconstructions were provided. Dose reduction techniques were utilized for this exam including automated exposure control, adjustments to mA and/or kV according to patient's size, and the use of iterative reconstruction techniques. FINDINGS: CHEST: Heart is normal in size. Multivessel coronary arterial calcifications. No pericardial effusion or thickening. Scattered calcified plaque along the thoracic aorta, which is otherwise grossly unremarkable. No pathologic intrathoracic or axillary adenopathy. Lungs are symmetrically aerated without focal consolidation, suspicious pulmonary nodule, pleural effusion, or pneumothorax. ABDOMEN / PELVIS: Intrahepatic biliary ductal dilatation with gas present within the intrahepatic biliary ducts. Periportal edema present. Dilatation of the common bile duct, which measures approximately 1.7 cm in caliber. Hyperdense focus is present at the ampulla, which measures up to 1.4 cm. Gallbladder has been resected. Portal vein appears patent. Pancreas, spleen, and adrenal glands are unremarkable. Symmetric nephrograms without hydronephrosis. Nonobstructing calculus within the inferior left renal collecting system measuring approximately 3 mm. No evidence of ureteral obstruction. Urinary bladder is unremarkable. Multiple duodenal diverticula present. No evidence of small bowel obstruction. Colonic diverticulosis without evidence of diverticulitis. Appendix is normal. No pneumoperitoneum or pneumatosis. Mild atherosclerotic calcifications present along the aortobiiliac vasculature without evidence of acute vascular abnormality. No retroperitoneal or inguinal lymphadenopathy. Fluid present within the inguinal canals. Prostate is unremarkable. No acute osseous abnormality. IMPRESSION: 1. Hyperdense focus suggestive of a stone within the ampulla with upstream extrahepatic and intrahepatic biliary ductal dilatation, with common bile duct measuring up to approximately 1.7 cm in caliber. Dilated intrahepatic ducts contain gas, and there is extensive periportal edema. Summation of findings compatible with obstructive choledocholithiasis complicated by cholangitis. 2. Colonic diverticulosis without evidence of diverticulitis. No evidence of bowel obstruction, pneumatosis, or pneumoperitoneum. 3. No acute abnormality within the chest. Note: Findings were discussed with Dr. SHIN CARTER by Dr. Paz at 10/12/2024 6:05 AM CDT. The images in this case were personally reviewed by the radiologist named below, and the report reflects his/her interpretation. us Shin Carter MD CT IMG ORDERABLES Final R esult * POC Creatinine (10/12/2024 5:00 AM CDT) POC Creatinine 1.1 0.6 - 1.3 mg/dL 10/12/2024 5:07 AM CDT [facility] O Blood 10/12/2024 5:00 AM CDT 10/12/2024 5:07 AM CDT us Shin Carter MD POINT OF CARE TEST ORDERA BLES Final Result Performing Organization Address City/[facility]/ZIP Co de Phone Number [facility] [address] [place] [address] * EKG 12 lead (10/12/2024 4:59 AM CDT) Systolic Blood Pressure 214 mmHg MUSE Diastolic Blood Pressure 112 mmHg MUSE Vent Rate 105 BPM MUSE Atrial Rate 105 BPM MUSE AK Interval 220 ms MUSE QRS Interval 82 ms MUSE QT Interval 294 ms MUSE QTC Interval 388 ms MUSE P Fisher 51 degrees MUSE R Fisher 26 degrees MUSE T Fisher 7 degrees MUSE Clinical Diagnosis Sinus tachycardia with 1st degree AV block Cannot rule out Anterior infarct , age undetermined Abnormal ECG No previous ECGs available Confirmed by UNCONFIRMED, EKG ([id number]), scientific publications editor Berenice Serra ([id number]) on 10/12/2024 8:31:05 AM MUSE 10/12/2024 4:59 AM CDT 10/12/2024 8:31 AM CDT us Shin Carter MD ECG ORDERABLES Edited Re sult - Final MUSE * (ABNORMAL) Lactic Acid with Repeat if Positive (10/12/2024 4:38 AM CDT) Lactic Acid 2.5(H) 0.4 - 2.0 mmol/L 10/12/2024 5:27 AM CDT [facility] O Blood Venipuncture / Unknown 10/12/2024 4:38 AM CDT 10/12/2024 5:00 AM CDT Shin Carter MD LAB BLOOD ORDERABLES Lizzy l Result [facility] [address] [facility] [place] [address] * Culture Blood Pos Id (10/12/2024 4:38 AM CDT) Culture KLEBSIELLA PNEUMONIAE 10/15/2024 9:55 AM CDT [facility] Blood PERIPHERAL BLOOD SPECIMEN / Unknown Venipuncture / Unknown 10/12/2024 4:38 AM CDT 10/12/2024 4:58 AM CDT Narrative [facility] - 10/15/2024 9:55 AM CDT Klebsiella pneumoniae in Aerobic bottle CULTURE Comment for BLOOD CULTURE ISOLATE Identification by MALDI-TOF New Car Get Ready Mechanic. This assay was validated by [facility] for identification of potential pathogens from isolates. FDA clearance is not required by CLIA. [facility] Microbiology Laboratory [address] [facility] [address] [address] Direct Marketing Analyst: Christine Stroud, PhD, D([employer]) CLIA# [id number] Organism Antibiotic Method Susceptibility Klebsiella pneumoniae Amoxicillin/Clavulanate <=8/4: Sensitive Klebsiella pneumoniae Ampicillin <=8: Resistant Klebsiella pneumoniae Ampicillin/Sulbactam <=4/2: Sensitive Klebsiella pneumoniae Aztreonam <=4: Sensitive Klebsiella pneumoniae Cefazolin <=2: Sensitive Klebsiella pneumoniae Cefepime <=2: Sensitive Klebsiella pneumoniae Ceftazidime <=1: Sensitive Klebsiella pneumoniae Ceftriaxone <=1: Sensitive Klebsiella pneumoniae Ciprofloxacin <=0.25: Sensitive Klebsiella pneumoniae Ertapenem <=0.5: Sensitive Klebsiella pneumoniae Gentamicin <=2: Sensitive Klebsiella pneumoniae Levofloxacin <=0.5: Sensitive Klebsiella pneumoniae Meropenem <=1: Sensitive Klebsiella pneumoniae Piperacillin/Tazobactam <=8: Sensitive Klebsiella pneumoniae Tobramycin <=2: Sensitive Klebsiella pneumoniae Trimethoprim+Sulfamethoxazole <=0.5/9.5: Sensitive Shin Carter MD MICROBIOLOGY - GENERAL [place] [address] [place] [address], [facility] [phone] * RAPID ID/AST BLOOD - ACCELERATED (10/12/2024 4:38 AM CDT) Culture Klebsiella species 10/13/2024 9:31 AM CDT [facility] Blood PERIPHERAL BLOOD SPECIMEN / Unknown Venipuncture / Unknown 10/12/2024 4:38 AM CDT 10/12/2024 4:59 AM CDT Narrative [facility] - 10/13/2024 9:31 AM CDT Klebsiella sp. Identified CULTURE Comment for RAPID IDAST BLOOD ISO This test is intended for rapid identification and antimicrobial susceptibility testing (AST) of selected organisms from positive blood cultures. Antimicrobial susceptibility breakpoint adjustments of select antibiotics have been validated by [facility] to align with CLSI standards. FDA clearance or approval is not required for clinical use. [facility] Microbiology Laboratory [address] [place] [address] [address], [place] [address] Direct Marketing Analyst: Christine Stroud, PhD, D([employer]) CLIA# [id number] Organism Antibiotic Method Susceptibility Klebsiella species Ampicillin/Sulbactam 4: Sensitive Klebsiella species Aztreonam 2: Sensitive Klebsiella species Cefazolin 1: Sensitive Klebsiella species Cefepime <=1: Sensitive Klebsiella species Ceftazidime <=2: Sensitive Klebsiella species Ceftriaxone <=0.25: Sensitive Klebsiella species Ciprofloxacin <=0.25: Sensitive Klebsiella species Ertapenem 0.25: Sensitive Klebsiella species Gentamicin <=1: Sensitive Klebsiella species Meropenem 1: Sensitive Klebsiella species Piperacillin/Tazobactam <=4: Sensitive Klebsiella species Tobramycin <=1: Sensitive Klebsiella species Trimethoprim+Sulfamethoxazole <=1: Sensitive Shin Carter MD MICROBIOLOGY - GENERAL OR DERABLES Final Result [facility] [address] [place] [address], [facility] [phone] * Troponin High Sensitivity, single order (10/12/2024 4:38 AM CDT) Troponin T High Sensitivity 14 <=22 ng/L 10/12/2024 5:29 AM CDT [facility] O Blood Venipuncture / Unknown 10/12/2024 4:38 AM CDT 10/12/2024 4:59 AM CDT Narrative [facility] - 10/12/2024 5:29 AM CDT Biotin >1200 ng/mL can reduce Elecsys Troponin T Gen 5 (Rudolph Gen 5; [facility]) assay recovery, potentially leading to falsely low results in patients with suspected acute myocardial infarction (AMI). Shin Carter MD LAB BLOOD ORDERABLES Lizzy l Result [address] [place] [address] * Lipase (10/12/2024 4:38 AM CDT) Lipase 40 13 - 60 U/L 10/12/2024 5:29 AM CDT [facility] Blood Venipuncture / Unknown 10/12/2024 4:38 AM CDT 10/12/2024 4:59 AM CDT Shin Carter MD LAB BLOOD ORDERABLES Lizzy l Result [address] [place] [address] from Last [address] 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
--- OUTSIDE RECORDS SUMMARY | 2025-01-09 13:35 | XMS_ITS | Clinical Summary ---
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 Name Role Phone Unavailable Primary Care Provider Unavailabl e Social History Tobacco Use Types Packs/Day Years Used Date Smoking Tobacco: Never Assessed Sex and Gender Information Value Date Recorded Sex Assigned at Not on file Legal Sex Male 6:49 PM CDT Gender Identity Not on file Sexual Orientation Not on file Plan of Treatment Health Maintenance Due Date Last Done Comments DTaP, Tdap and Td Vaccines ( 1 - Tdap) 1961 Pneumococcal Vaccine: 50+ Ye ars (1 of 1 - PCV) 1992 Zoster Vaccines (1 of 2) 1992 RSV Immunization or 60+ Years (1 - 1-dose 75+ series) 2017 COVID-19 Vaccine ( - 2024-2 6 season) 2024 Influenza Adult (#1) 2024 Hepatitis A Vaccines Aged Out No long er eligible based on patient's age to complete this topic Meningococcal B Vaccine Aged Out No l onger eligible based on patient's age to complete this topic Meningococcal Vaccine Aged Out No fabiano pamela eligible based on patient's age to complete this topic RSV Immunizations Under 20 Months Aged Out No longer eligible based on patient's age to complete this topic
[2025-01-09 13:57] LABS: Alanine Aminotransferase 22 U/L (6-50); Albumin Level 3.8 g/dL (3.5-5.1); Alkaline Phosphatase 134 U/L (38-126); Aspartate Amino Transferase 43 U/L (17-59); Bilirubin,Total 0.8 mg/dL (0.2-1.3); Total Protein 7.4 g/dL (6.3-8.2)
== END 2025-01-09 12:32 | disposition home or self-care (01) ==
PROVIDERS: PCP Family Medicine; Visit Provider Nurse Practitioner
DX: K80.50 Calculus of bile duct without cholangitis or cholecystitis without obstruction (principal); K83.09 Other cholangitis; R79.89 Other specified abnormal findings of blood chemistry
CPT/HCPCS: 36415; 80076